=== PATIENT | male | born 1950 | race Caucasian/White ===

== ENCOUNTER 2018-01-02 06:10 | Emergency (ER) | payer OTHER ==
[~2018-01-02] VITALS: Ht 175.3 cm; Wt 79.4 kg
[2018-01-02] MEDS ORDERED: SODIUM CHLORIDE 0.9% 1,000 ML IV ONE (07:28)
[2018-01-02 07:39] LABS: Basophils # (auto) 0 uL; Basophils % (auto) 1.1 % (0.0-2.0); Eosinophils # (auto) 0.3 uL; Eosinophils % (auto) 7.5 % (0.0-7.0); Hematocrit 40.3 % (41.0-53.0); Lymphocytes # (auto) 1.2 uL; Lymphocytes % (auto) 33.3 % (10.0-50.0); Mean Corpuscular Hemoglobin 30.2 pg (28.0-32.0); Mean Corpuscular Hgb Conc. 34.7 g/dL (32.0-36.0); Monocytes # (auto) 0.4 uL; Monocytes % (auto) 12.4 % (0.0-12.0); Neutrophils # (auto) 1.6 uL; Neutrophils % (auto) 45.7 % (37.0-80.0); Nucleated Red Blood Cells % 0.1 %; Platelet Count (auto) 160 10^3/uL (140-450); Red Blood Cells 4.63 10^6/uL (4.5-5.90); Red Cell Distribution Width 14.7 % (11.8-14.3); White Blood Cell 3.5 10^3/uL (4.4-10.8)
[2018-01-02 08:00] LABS: Alanine Aminotransferase 31 U/L (16-61); Albumin 3.7 g/dL (3.4-5.0); Alkaline Phosphatase 107 U/L (45-117); Anion Gap 8 (5-15); Aspartate Aminotransferase 18 U/L (15-37); BUN/Creatinine Ratio 22.6; Blood Urea Nitrogen 28 mg/dL (7-18); Calcium 9.4 mg/dL (8.5-10.1); Carbon Dioxide 23 mmol/L (21-32); Chloride 107 mmol/L (98-107); GFR African American 74 mL/min; GFR Non-African American 61 mL/min; Glucose 200 mg/dL (74-106); Potassium 4.8 mmol/L (3.5-5.1); Sodium 138 mmol/L (136-145); Total Protein 7.8 g/dL (6.4-8.2)
[2018-01-02 08:48] LABS: Urine Bacteria NONE SEEN /hpf (None Seen); Urine Blood Negative /uL (Negative); Urine Specific Gravity 1.008 (1.001-1.035); Urine WBC 2 /hpf (0 - 3)
[2018-01-02 11:45] VITALS: BP 139/71
== END 2018-01-02 11:02 | disposition home or self-care (01) ==
LOC: ER 06:12
DX: R51 Headache (principal); R42 Dizziness and giddiness; E11.65 Type 2 diabetes mellitus with hyperglycemia; M19.90 Unspecified osteoarthritis, unspecified site; J01.00 Acute maxillary sinusitis, unspecified; H92.01 Otalgia, right ear; I10 Essential (primary) hypertension; Z85.72 Personal history of non-Hodgkin lymphomas
CPT/HCPCS: 36415; 70450; 71046; 80053; 81001; 83735; 83880; 84484; 85025; 85652; 93005; 94761; 96360; 99285; J7030

== ENCOUNTER 2019-12-11 19:04 | Emergency (ER) | payer OTHER ==
[~2019-12-11] VITALS: Ht 172.7 cm; Wt 74.8 kg
[2019-12-11 20:33] LABS: Hematocrit 40.7 % (41.0-53.0); Hemoglobin 13.9 g/dL (13.5-17.5); Mean Corpuscular Hemoglobin 29.4 pg (28.0-32.0); Mean Corpuscular Hgb Conc. 34.2 g/dL (32.0-36.0); Mean Corpuscular Volume 85.9 fL (80.0-100.0); Platelet Count (auto) 159 10^3/uL (140-450); Red Blood Cells 4.74 10^6/uL (4.5-5.90); Red Cell Distribution Width 19.1 % (11.8-14.3)
[2019-12-11 20:36] LABS: Band Neutrophils % (manual) 0; Basophils % (manual) 0 (0.0-2.0); Blast Cells 0; Eosinophils % (manual) 0 (0-7); Metamyelocytes % 0; Myelocytes % 0; Promyelocytes % 0; Reactive Lymphocytes 0
[2019-12-11 20:42] LABS: Albumin 3.9 g/dL (3.4-5.0); Anion Gap 6 (5-15); Blood Urea Nitrogen 22 mg/dL (7-18); Calcium 9.3 mg/dL (8.5-10.1); Carbon Dioxide 25 mmol/L (21-32); Chloride 106 mmol/L (98-107); Glucose 129 mg/dL (74-106); Potassium 3.5 mmol/L (3.5-5.1); Sodium 137 mmol/L (136-145)
[2019-12-11 20:44] LABS: Alanine Aminotransferase 44 U/L (16-61); Aspartate Aminotransferase 22 U/L (15-37); BUN/Creatinine Ratio 18.3; GFR African American 77 mL/min; GFR Non-African American 63 mL/min
[2019-12-11 20:49] LABS: Alkaline Phosphatase 81 U/L (45-117); Total Protein 8.2 g/dL (6.4-8.2)
[2019-12-11 20:58] LABS: Lymphocytes % (manual) 38 (10.0-50.0); Monocytes % (manual) 18 (0-12)
[2019-12-12 03:04] VITALS: BP 130/78
== END 2019-12-12 04:40 | disposition home or self-care (01) ==
LOC: ER 19:04
DX: E11.9 Type 2 diabetes mellitus without complications (principal); M19.90 Unspecified osteoarthritis, unspecified site
CPT/HCPCS: 36415; 80053; 82962; 84484; 85007; 85027

== ENCOUNTER 2021-11-13 16:24 | Inpatient (IN) | payer OTHER ==
[~2021-11-13] VITALS: Ht 172.7 cm; Wt 69.0 kg
[2021-11-13] MEDS ORDERED: ACETAMINOPHEN 325 MG TAB PO ONE (16:30)
[2021-11-13] MEDS ORDERED: SODIUM CHLORIDE 0.9% 500 ML IV ONE (16:30)
[2021-11-13 18:43] LABS: Hematocrit 34.8 % (41.0-53.0); Hemoglobin 11.8 g/dL (13.5-17.5); Mean Corpuscular Hemoglobin 27.4 pg (28.0-32.0); Mean Corpuscular Hgb Conc. 33.8 g/dL (32.0-36.0); Mean Corpuscular Volume 81.1 fL (80.0-100.0); Red Blood Cells 4.29 10^6/uL (4.5-5.90); Red Cell Distribution Width 17.1 % (11.8-14.3); White Blood Cell 2.7 10^3/uL (4.4-10.8)
[2021-11-13 18:46] LABS: Band Neutrophils % (manual) 0
[2021-11-13 18:48] LABS: Basophils % (manual) 0 (0.0-2.0); Blast Cells 0; Metamyelocytes % 0; Myelocytes % 0; Promyelocytes % 0; Reactive Lymphocytes 0
[2021-11-13 19:02] LABS: Albumin 2.9 g/dL (3.4-5.0); Calcium 9.5 mg/dL (8.5-10.1); Potassium 3.9 mmol/L (3.5-5.1)
[2021-11-13 19:06] LABS: Bilirubin, Total 0.8 mg/dL (0.2-1.0); Total Protein 7.8 g/dL (6.4-8.2)
[2021-11-13 19:11] LABS: Eosinophils % (manual) 2 (0-7); Lymphocytes % (manual) 22 (10.0-50.0); Monocytes % (manual) 8 (0-12)
[2021-11-14 05:18] LABS: Urine Bacteria FEW /hpf (None Seen); Urine Blood Negative /uL (Negative); Urine Specific Gravity 1.013 (1.001-1.035); Urine WBC <1 /hpf (0 - 3)
[2021-11-14] MEDS ORDERED: ACETAMINOPHEN 325 MG TAB PO PRN (19:15)
[2021-11-14] MEDS ORDERED: MORPHINE SULFATE INJECTION 2 MG/ML SYRG IV PRN (19:15)
[2021-11-14] MEDS ORDERED: MORPHINE SULFATE 4 MG/ML SYR/VIAL IV PRN (19:15)
[2021-11-14] MEDS ORDERED: NITROGLYCERIN 0.4 MG SL TAB SL PRN (19:15)
[2021-11-14] MEDS: SODIUM CHLORIDE 0.9% 1,000 ML IV SCH (20:22)
[2021-11-15] MEDS ORDERED: GLIM2TAB33 PO (04:20)
[2021-11-15] MEDS ORDERED: HYDR200T36 PO (04:20)
[2021-11-15 05:00] VITALS: BP 122/64
[2021-11-15 05:36] LABS: Hematocrit 32.5 % (41.0-53.0); Hemoglobin 10.9 g/dL (13.5-17.5); Mean Corpuscular Hemoglobin 27.1 pg (28.0-32.0); Mean Corpuscular Hgb Conc. 33.6 g/dL (32.0-36.0); Mean Corpuscular Volume 80.7 fL (80.0-100.0); Red Blood Cells 4.02 10^6/uL (4.5-5.90); Red Cell Distribution Width 17.3 % (11.8-14.3)
[2021-11-15 05:43] LABS: Albumin 2.5 g/dL (3.4-5.0); Calcium 10.1 mg/dL (8.5-10.1)
[2021-11-15 05:53] LABS: BUN/Creatinine Ratio 20.2; Bilirubin, Total 0.8 mg/dL (0.2-1.0); Total Protein 7.2 g/dL (6.4-8.2)
[2021-11-15 05:56] LABS: Basophils % (manual) 0 (0.0-2.0); Blast Cells 0; Metamyelocytes % 0; Myelocytes % 0; Promyelocytes % 0; Reactive Lymphocytes 0
[2021-11-15 06:42] LABS: Band Neutrophils % (manual) 6; Eosinophils % (manual) 5 (0-7); Lymphocytes % (manual) 34 (10.0-50.0); Monocytes % (manual) 19 (0-12)
[2021-11-15 09:00] VITALS: BP 130/60
[2021-11-15] MEDS: ENOXAPARIN SOD 40 MG/0.4 ML SYRINGE SC SCH (09:25)
[2021-11-15] MEDS: HYDROcodone-ACET 5/325MG TAB PO PRN ×2 (09:26→16:29)
[2021-11-15 12:27] VITALS: BP 115/54
[2021-11-15 17:01] VITALS: BP 131/69
[2021-11-15 20:00] VITALS: BP 125/62
[2021-11-15] MEDS: SODIUM CHLORIDE 0.9% 1,000 ML IV SCH (20:12)
[2021-11-16] MEDS: SODIUM CHLORIDE 0.9% 1,000 ML IV SCH (04:16)
[2021-11-16 05:00] VITALS: BP 132/74
[2021-11-16] MEDS ORDERED: IOHEXOL 350 MG/ML 100ML IJ ONE (09:21)
[2021-11-16 09:44] VITALS: BP 116/64
[2021-11-16] MEDS: ENOXAPARIN SOD 40 MG/0.4 ML SYRINGE SC SCH (10:25)
[2021-11-16 12:55] VITALS: BP 125/68
[2021-11-16 15:13] VITALS: BP 125/68
== END 2021-11-16 17:20 | disposition home or self-care (01) | DRG 558 ==
LOC: EDBD 16:24 → ER 16:24 → OBSVTOIN 11-14 19:06 → OVERFLOW 11-14 19:06 → WEST WING 11-14 23:40
PROVIDERS: ADMIT Internal Medicine; ATTEND Family Medicine
DX: M75.102 Unspecified rotator cuff tear or rupture of left shoulder, not specified as traumatic (principal); G89.29 Other chronic pain; R62.7 Adult failure to thrive; D64.9 Anemia, unspecified; D72.819 Decreased white blood cell count, unspecified; E88.09 Other disorders of plasma-protein metabolism, not elsewhere classified; E11.9 Type 2 diabetes mellitus without complications; E78.00 Pure hypercholesterolemia, unspecified; E78.5 Hyperlipidemia, unspecified; M06.9 Rheumatoid arthritis, unspecified; M19.90 Unspecified osteoarthritis, unspecified site; M25.561 Pain in right knee; M25.562 Pain in left knee; W18.39XA Other fall on same level, initial encounter; R79.89 Other specified abnormal findings of blood chemistry; Z20.822 Contact with and (suspected) exposure to COVID-19; Z82.49 Family history of ischemic heart disease and other diseases of the circulatory system; Z83.3 Family history of diabetes mellitus; Z85.6 Personal history of leukemia; Y93.89 Activity, other specified; Y92.89 Other specified places as the place of occurrence of the external cause; Y99.8 Other external cause status
CPT/HCPCS: 36415; 70450; 71275; 73030; 73560; 80053; 81001; 82962; 83605; 84484; 85007; 85027; 85379; 87040; 87426; 93005; 93970; 97163; G0378

== ENCOUNTER 2023-10-13 01:01 | Emergency (ER) | payer OTHER ==
[~2023-10-13] VITALS: Ht 175.3 cm; Wt 73.0 kg
[~2023-10-13 01:01] MED LIST: GLIM2TAB33 PO; HYDR200T36 PO
[2023-10-13 01:41] LABS: Basophils # (auto) 0 10 ^3/uL (0-0.2); Basophils % (auto) 0.7 % (0.0-2.0); Eosinophils # (auto) 0.1 10 ^3/uL (0-0.8); Eosinophils % (auto) 2.2 % (0.0-7.0); Hematocrit 41.7 % (41.0-53.0); Mean Corpuscular Hemoglobin 30.6 pg (28.0-32.0); Mean Corpuscular Hgb Conc. 33.6 g/dL (32.0-36.0); Mean Corpuscular Volume 91.3 fL (80.0-100.0); Monocytes # (auto) 0.4 10 ^3/uL (0-1.3); Neutrophils # (auto) 2.3 10 ^3/uL (1.6-8.6); Neutrophils % (auto) 60.1 % (37.0-80.0); Red Blood Cells 4.56 10^6/uL (4.5-5.90); White Blood Cell 3.9 10^3/uL (4.4-10.8)
[2023-10-13 01:48] VITALS: PULSE 58; RESP 14; O2SAT 94
[2023-10-13 02:00] LABS: Alanine Aminotransferase 34 U/L (7-40); Albumin 4.4 g/dL (3.2-4.8); Alkaline Phosphatase 91 U/L (46-116); Anion Gap 10 (5-15); Aspartate Aminotransferase 42 U/L (13-40); BUN/Creatinine Ratio 11.5 (10.0-20.0); Bilirubin, Total 1.6 mg/dL (0.2-1.0); Blood Alcohol < 3.0 mg/dL (<10); Blood Urea Nitrogen 14 mg/dL (9-23); Calcium 9.6 mg/dL (8.7-10.4); Carbon Dioxide 21 mmol/L (20-30); Chloride 103 mmol/L (98-107); Glucose 165 mg/dL (74-106); Sodium 134 mmol/L (136-145); Total Protein 7.2 g/dL (5.7-8.2)
[2023-10-13] MEDS ORDERED: LACTATED RINGER'S 1,000 ML IV ONE (02:45)
[2023-10-13 04:45] LABS: Urine Bacteria NONE SEEN /hpf (None Seen); Urine Blood Negative /uL (Negative); Urine Clarity Clear (Clear); Urine Color Colorless (Yellow); Urine Protein, UAD Negative (Negative); Urine Specific Gravity 1.003 (1.001-1.035); Urine Urobilinogen Normal (Negative); Urine WBC <1 /hpf (0 - 3); Urine pH 5.5 (5.0-8.0)
[2023-10-13 04:55] LABS: Amphetamine Screen, Urine Neg (NEGATIVE); Barbiturate Scree,Urine Neg (NEGATIVE); Benzodiazephine Screen, Urine Neg (NEGATIVE); Cocaine Screen, Urine Neg (NEGATIVE)
[2023-10-13 04:56] LABS: Cannabinoid Screen, Urine Neg (NEGATIVE); Opiate Scree,Urine Neg (NEGATIVE); Phencyclidine Screen, Urine Neg (NEGATIVE)
[2023-10-13 05:59] VITALS: BP 121/54; PULSE 56; RESP 11; TEMP 98; O2SAT 96
== END 2023-10-13 05:57 | disposition home or self-care (01) ==
LOC: ER 01:01
DX: D72.819 Decreased white blood cell count, unspecified (principal); E87.1 Hypo-osmolality and hyponatremia; D69.6 Thrombocytopenia, unspecified; R51.9 Headache, unspecified; E11.9 Type 2 diabetes mellitus without complications; I10 Essential (primary) hypertension; Z79.899 Other long term (current) drug therapy
CPT/HCPCS: 36415; 70450; 71045; 80053; 80307; 80320; 81001; 82962; 84484; 85025; 93005

== ENCOUNTER 2024-09-25 19:13 | Inpatient (IN) | payer OTHER ==
[~2024-09-25] VITALS: Ht 175.3 cm; Wt 72.2 kg
[2024-09-25 20:40] LABS: Urine Bacteria FEW /hpf (None Seen); Urine Blood Negative /uL (Negative); Urine Clarity Clear (Clear); Urine Color Light-Yellow (Yellow); Urine Protein, UAD Negative (Negative); Urine Specific Gravity 1.011 (1.001-1.035); Urine Urobilinogen Normal (Negative); Urine WBC <1 /hpf (0 - 3)
--- NOTE | 2024-09-25 20:52 | ED.PDOC ---
Altered Mental Status HPI Comments This 74-year-old male with a past medical history significant for rheumatoid arthritis, leukemia diabetes mellitus presents to the emergency room secondary to multiple recent episodes where he transiently is confused. This morning, he woke up, was unsure where he was at, but over the course of the improved. This happened again this afternoon while he was driving. He then was unable to recognize where he was at was unable to remember basic information. Once his mental status improved, he presented here. Currently, he has no complaints such as headaches and vision changes chest pain, shortness breath, nausea vomiting or diarrhea. Denies weakness. Denies modifying factors. Denies pain. Chief Complaint: Confusion Time Seen by MD: 20:11 Primary Care Provider: UNKNOWN Allergies: Coded Allergies: NO KNOWN ALLERGIES (Unverified , 11/13/21) Home Meds Reported Medications Hydroxychloroquine Sulfate (Hydroxychloroquine Sulfat) 200 Mg Tab, 200 MG PO DAILY for 30 Days, MG 11/15/21 Glimepiride (Glimepiride) 2 Mg Tab, 2 MG PO BID for 30 Days, MG 11/15/21 Mode of Arrival: Ambulatory Severity: Mild Timing: Minutes Past Medical History PAST MEDICAL HISTORY: Arthritis, Cancer, DM, HTN Surgical History: Tonsillectomy Family History Family History: Unknown Social History Smoker: Non-Smoker Alcohol: Denies ETOH Use Drugs: Denies Drug Use Lives In: Home Constitutional: denies: chills, diaphoresis, fatigue, fever, malaise, sweats, weakness, others EENTM: denies: blurred vision, double vision, ear ringing, photophobia, voice changes Respiratory: denies: cough, shortness of breath Cardiovascular: denies: dizzy spells, edema, palpitations Gastrointestinal: reports: diarrhea; denies: abdominal pain, constipated, difficulty swallowing, melena, nausea Genitourinary: denies: burning, dysuria, frequency Neurological: reports: speech problems, others (Transient confusion); denies: headache, left sided numbness, left sided weakness, numbness Musculoskeletal: denies: back pain Integumetry: denies: bruises Allergic/Immunocompromised: denies: Difficulty Healing Hematologic/Lymphatic: denies: anemia Endocrine: denies: excessive hunger Psychiatric: denies: anxiety, depression Unable to Obtain due to: Altered Mental Status, Dementia Physical Exam General Appearance: Normal HEENT: Eye Lid (L), Eye Lid (R), Head, Normal ENT Inspection, Pharynx Normal Neck: Full Range of Motion, Non-Tender, Normal Inspection Respiratory: Lungs Clear, Normal Breath Sounds Cardiovascular: No Murmur, No Gallop, Regular Rate/Rhythm Breast Exam: Deferred Gastrointestinal: Non Tender, Normal Bowel Sounds Genitalia: Deferred Pelvic: Deferred Rectal: Deferred Extremities: None, Normal inspection, Normal range of motion Neurologic: paraplanner II-XII nml as Tested, No Motor Deficits, Normal Affect, Normal Mood Cerebellar Function: Normal Reflexes: NOT DONE Skin: Normal Color Lymphatic: NOT DONE Was a procedure done? Was a procedure done?: No Differential Diagnosis (ALOC) Differential Diagnosis: Dehydration, Hypoglycemia, DKA, Encephalopathy, Meningitis, Sepsis, Hypoxemia, Closed Head Injury, CVA, SAH, Drug Overdose, ETOH Intoxication X-Ray, Labs, Meds, VS Vital Signs Date Time Temp Pulse Resp B/P (MAP) Pulse Ox O2 Delivery O2 Flow Rate FiO2 09/25/24 19:48 98.1 66 18 169/67 (101) 97 Lab Test 09/25/24 20:49 09/25/24 19:50 Range/Units White Blood Count 2.9 L 4.4-10.8 10^3/uL Red Blood Count 4.52 4.5-5.90 10^6/uL Hemoglobin 13.9 13.5-17.5 g/dL Hematocrit 41.0 41.0-53.0 % Mean Corpuscular Volume 90.6 80.0-100.0 fL Mean Corpuscular Hemoglobin 30.8 28.0-32.0 pg Mean Corpuscular Hemoglobin Concent 33.9 32.0-36.0 g/dL Red Cell Distribution Width 14.7 H 11.8-14.3 % Platelet Count 155 140-450 10^3/uL Mean Platelet Volume 8.3 6.9-10.8 fL Neutrophils (%) (Auto) 44.4 37.0-80.0 % Lymphocytes (%) (Auto) 31.9 10.0-50.0 % Monocytes (%) (Auto) 16.6 H 0.0-12.0 % Eosinophils (%) (Auto) 6.4 0.0-7.0 % Basophils (%) (Auto) 0.7 0.0-2.0 % Neutrophils # (Auto) 1.3 L 1.6-8.6 10 ^3/uL Lymphocytes # (Auto) 0.9 0.4-5.4 10 ^3/uL Monocytes # (Auto) 0.5 0-1.3 10 ^3/uL Eosinophils # (Auto) 0.2 0-0.8 10 ^3/uL Basophils # (Auto) 0 0-0.2 10 ^3/uL Nucleated Red Blood Cells 0.4 % Prothrombin Time 10.7 9.3-11.8 sec Prothrombin Time INR 1.01 0.9-1.15 Activated Partial Thromboplast Time 25.6 24.5-34.5 SEC D-Dimer, Quantitative 0.33 0.0-0.49 mg/L FEU Sodium Level 141 136-145 mmol/L Potassium Level 4.5 3.5-5.1 mmol/L Chloride Level 108 H 98-107 mmol/L Carbon Dioxide Level 26 20-31 mmol/L Anion Gap 7 5-15 Blood Urea Nitrogen 22 9-23 mg/dL Creatinine 1.54 H 0.700-1.30 mg/dL Glomerular Filtration Rate Calc 46 >90 mL/min BUN/Creatinine Ratio 14.3 10.0-20.0 Serum Glucose 109 H 74-106 mg/dL Lactic Acid Level 0.8 0.4-2.0 mmol/L Calcium Level 10.5 H 8.7-10.4 mg/dL Magnesium Level 2.2 1.6-2.6 mg/dL Total Bilirubin 1.4 H 0.2-1.0 mg/dL Aspartate Amino Transferase (AST) 36 13-40 U/L Alanine Aminotransferase (ALT) 37 7-40 U/L Alkaline Phosphatase 108 46-116 U/L Total Protein 7.4 5.7-8.2 g/dL Albumin 4.5 3.2-4.8 g/dL Plasma/Serum Blood Alcohol < 3.0 <10 mg/dL Urine Color Light-yellow Yellow Urine Clarity Clear Clear Urine pH 5.0 5.0-9.0 Urine Specific [place] 1.011 1.001-1.035 Urine Protein Negative Negative Urine Ketones Negative Negative Urine Blood Negative Negative /uL Urine Nitrite Negative Negative Urine Bilirubin Negative Negative Urine Urobilinogen Normal Negative mg/dL Urine Leukocyte Esterase Negative Negative /uL Urine RBC None seen 0 - 3 /hpf Urine WBC <1 0 - 3 /hpf Urine Squamous Epithelial Cells Few <5 /hpf Urine Bacteria Few H None Seen /hpf Urine Glucose Normal Normal mg/dL Urine Opiates Screen Neg NEGATIVE Urine Fentanyl Screen Neg NEGATIVE Urine Barbiturates Screen Neg NEGATIVE Urine Phencyclidine Screen Neg NEGATIVE Urine Amphetamines Screen Neg NEGATIVE Urine Benzodiazepines Screen Neg NEGATIVE Urine Cocaine Screen Neg NEGATIVE Urine Cannabinoids Screen Neg NEGATIVE X-Ray, Labs, Meds, VS Comment This 74-year-old male with a complex past medical history with multiple cardiac risk factors present signal multiple spells where he is confused. Based on such physical exam, I believe the patient is having transient ischemic attacks. These have resolved. However, he has had 2 episodes today and I am worried he is pending a catastrophic stroke. As such, he will be admitted for further workup management. Time of 1ST Reevaluation: 22:20 Reevaluation 1ST: Improved Patient Education/Counseling: Diagnosis, Treatment, Prognosis, Need For Follow Up Family Education/Counseling: No Family Present Departure 1 Departure Time of Disposition: 22:19 Impression: Primary Impression: Acute confusional state Disposition: 09 ADMITTED INPATIENT Admit to: Tele Condition: Serious Critical Care Note Critical Care Time?: No Stability Stability form required: No Heart Score Heart Score: Heart Score Response (Comments) Value History N/A 0 EKG N/A 0 Age N/A 0 Risk Factors N/A 0 Troponin N/A 0 Total 0 SEAMUS MONSALVE MD Sep 25, 2024 20:52
[2024-09-25 21:05] LABS: Basophils # (auto) 0 10 ^3/uL (0-0.2); Basophils % (auto) 0.7 % (0.0-2.0); Eosinophils # (auto) 0.2 10 ^3/uL (0-0.8); Eosinophils % (auto) 6.4 % (0.0-7.0); Hemoglobin 13.9 g/dL (13.5-17.5); Lymphocytes # (auto) 0.9 10 ^3/uL (0.4-5.4); Lymphocytes % (auto) 31.9 % (10.0-50.0); Mean Corpuscular Hemoglobin 30.8 pg (28.0-32.0); Mean Corpuscular Hgb Conc. 33.9 g/dL (32.0-36.0); Mean Corpuscular Volume 90.6 fL (80.0-100.0); Monocytes # (auto) 0.5 10 ^3/uL (0-1.3); Monocytes % (auto) 16.6 % (0.0-12.0); Neutrophils # (auto) 1.3 10 ^3/uL (1.6-8.6); Neutrophils % (auto) 44.4 % (37.0-80.0); Nucleated Red Blood Cells % 0.4 %; Platelet Count (auto) 155 10^3/uL (140-450); Red Blood Cells 4.52 10^6/uL (4.5-5.90); Red Cell Distribution Width 14.7 % (11.8-14.3); White Blood Cell 2.9 10^3/uL (4.4-10.8)
[2024-09-25 21:05] LABS: Amphetamine Screen, Urine Neg (NEGATIVE); Barbiturate Scree,Urine Neg (NEGATIVE); Benzodiazephine Screen, Urine Neg (NEGATIVE); Cannabinoid Screen, Urine Neg (NEGATIVE); Cocaine Screen, Urine Neg (NEGATIVE); Opiate Scree,Urine Neg (NEGATIVE); Phencyclidine Screen, Urine Neg (NEGATIVE)
--- NOTE | 2024-09-25 21:09 | DVH ---
EXAM: CT HEAD WITHOUT CONTRAST INDICATION: confusion TECHNIQUE: CT of the head without intravenous contrast. Radiation Dose : 1. Head: CT Dose: CTDI volume is 57 mGy. Dose-length product is 1113 mGy*cm The dose indicators for CT are the volume Computed Tomography (CT) Dose Index (CTDIvol) and the Dose Length Product (DLP), and are measured in units of mGy and mGy-cm, respectively. These indicators are not patient dose, but values generated from the CT scanner acquisition factors. The report includes radiation exposure data for exposures received during this examination. COMPARISON: CT HEAD WITHOUT CONTRAST on DOS: 10/13/23, CT ANGIO CHEST CONTRAST on DOS: 11/16/21, HEAD WITHOUT CONTRAST on DOS: 11/13/21 FINDINGS: There is no evidence of acute intracranial hemorrhage, extra-axial collection, mass effect, midline s hift, herniation or hydrocephalus. The ventricles, sulci and cisterns are age appropriate. The nina-white differentiation is intact. Patchy periventricular and subcortical white matter hypoattenuation is nonspecific but may be related to small vessel ischemic disease. Complete opacification of the right maxillary sinus, unchanged from prior. The surrounding soft tissues and osseous structures are unremarkable. IMPRESSION: 1. No acute intracranial abnormality. Radiation optimization: All CT scans at this facility use at least one of these dose optimization bimal hniques: automated exposure control mA and/or kV adjustment per patient size (includes targeted exam s where dose is matched to clinical indication) or iterative reconstruction.
[2024-09-25 21:20] LABS: INR 1.01 (0.9-1.15); Partial Thromboplastin Time 25.6 SEC (24.5-34.5); Prothrombin Time 10.7 sec (9.3-11.8)
[2024-09-25 21:23] LABS: Alanine Aminotransferase 37 U/L (7-40); Albumin 4.5 g/dL (3.2-4.8); Alkaline Phosphatase 108 U/L (46-116); Anion Gap 7 (5-15); Aspartate Aminotransferase 36 U/L (13-40); BUN/Creatinine Ratio 14.3 (10.0-20.0); Blood Urea Nitrogen 22 mg/dL (9-23); Carbon Dioxide 26 mmol/L (20-31); Magnesium 2.2 mg/dL (1.6-2.6); Potassium 4.5 mmol/L (3.5-5.1); Sodium 141 mmol/L (136-145)
[2024-09-25 21:24] LABS: Total Protein 7.4 g/dL (5.7-8.2)
[2024-09-25 21:25] LABS: Bilirubin, Total 1.4 mg/dL (0.2-1.0); Blood Alcohol < 3.0 mg/dL (<10); Calcium 10.5 mg/dL (8.7-10.4); Chloride 108 mmol/L (98-107); Glucose 109 mg/dL (74-106)
[2024-09-25] MEDS ORDERED: ACETAMINOPHEN 325 MG TAB PO PRN (22:45)
[2024-09-25] MEDS: SODIUM CHLORIDE 0.9% 1,000 ML IV SCH (22:45)
[2024-09-25] MEDS ORDERED: NITROGLYCERIN 0.4 MG SL TAB SL PRN (22:45)
[2024-09-25] MEDS ORDERED: MORPHINE SULFATE INJ 2 MG/ml SYRG IV PRN ×2 (22:45)
[2024-09-25] MEDS ORDERED: ONDANSETRON HCL 4 MG/2 ML VIAL IV PRN (22:45)
[2024-09-26] VITALS (8 sets, daily range): BP systolic 93–162; BP diastolic 53–71; PULSE 52–65; RESP 16–20; TEMP 97.4–97.9; O2SAT 92–99
--- NOTE | 2024-09-26 04:00 | DVHHPRES ---
History of Present Illness Resident Creating Document: FARA COCHRAN RESIDENT Reason for Visit: recurrent memory loss History of Present Illness 74-year-old male patient with past medical history of rheumatoid arthritis, leukemia, type 2 diabetes, hypertension who presents with a recent episode of transient memory loss. He describes the episode as an inability to remember his location, mainly how to return home. During the episode he routine his ability to recall personal information, such as his name family members. The episode lasted approximately 1 hour and resolved spontaneously, with a returned to baseline mental status. These symptoms began in November of this year, after which he was evaluated in the emergency department and diagnosed with transient amnesia. He denies current chest pain, shortness of breath, weakness, dizziness, focal neurological deficits, or other complaints. He reports no rece nt infections, trauma or new medications. On presentation his blood pressure was elevated with readings of 169/67 mmHg and 156/55 mmHg. His initial head CT was unremarkable, showing no acute intracranial abnormalities. Laboratory findings revealed leukopenia white blood cell count 2.9, and platelet count 155, creatinine 154 consistent with acute kidney injury. Urinalysis was normal except for a few bacteria and toxicology screening was negative. Past Surgical History: None Smoke: No ALCOHOL: none Lives: with Family Domestic Violence: Neg Review of Systems Review of Systems Constitutional: No: Fever, Chills, Sweats, Weakness, Malaise, but reports transient memory loss lasting 1 hour, fully resolved. Eyes: No: Pain, Vision change, Conjunctivae inflammation, Eyelid inflammation, Other, Redness ENT: No: Ear pain, Ear discharge, Nose pain, Nose discharge, Nose congestion, Mouth pain, Mouth swelling, Throat pain, Throat swelling, Other Respiratory: No Wheezing, Hemoptysis, Pleuritic Pain, Sputum, Wheezing, Other Cardiovascular: No: Chest Pain, Palpitations, Orthopnea, Paroxysmal Noc. Dyspnea, Edema, Lt Headedness, Other Gastrointestinal: No: Nausea, Vomiting, Abdominal Pain, Diarrhea, Constipation, Melena, Hematochezia, Other Musculoskeletal: No new joint pain or swelling. Chronic rheumatoid arthritis noted but stable without recent flare. Neurological: Reports transient memory loss related to location (forgetting how to return home), lasting 1 hour. Denies weakness numbness tingling focal deficits, or difficulty with speech. Allergies: Coded Allergies: NO KNOWN ALLERGIES (Unverified , 11/13/21) Medications Current Medications Medications Dose Ordered Sig/Justino Route Start Time Stop Time Status Last Admin Dose Admin Sodium Chloride 1,000 ml @ 60 mls/hr [id number] IV 09/25/24 22:45 09/25/24 22:45 60 MLS/HR Ondansetron HCl 4 mg Q4HP PRN IV 09/25/24 22:45 Acetaminophen 650 mg Q6HP PRN PO 09/25/24 22:45 Morphine Sulfate 2 mg Q4HPRN PRN IV 09/25/24 22:45 Nitroglycerin 0.4 mg Q5MINP PRN SL 09/25/24 22:45 Morphine Sulfate 2 mg Q30M PRN IV 09/25/24 22:45 Exam Vital Signs Vital Signs Date Time Temp Pulse Resp B/P (MAP) Pulse Ox O2 Delivery O2 Flow Rate FiO2 09/26/24 00:50 97.6 60 20 156/55 (88) 96 97.6 Exam Examination General Appearance: Alert, oriented to person, place, and time appears calm and cooperative Respiratory: Clear to auscultation, Normal air movement Cardiovascular: Regular rate, Normal S1, Normal S2 Abdominal: Normal bowel sounds Extremities: No cyanosis, No edema, Normal pulses, No tenderness/swelling Skin: No rashes, No breakdown Neuro: Normal gait, Normal speech, Strength at 5/5 X4 ext, Normal tone, Sensation intact, Cranial nerves 3-12 NL, Reflexes 2+ Psych/Mental Status: Mental status NL, Mood NL Labs/Xrays Labs Test 09/25/24 20:49 09/25/24 19:50 Range/Units White Blood Count 2.9 L 4.4-10.8 10^3/uL Red Blood Count 4.52 4.5-5.90 10^6/uL Hemoglobin 13.9 13.5-17.5 g/dL Hematocrit 41.0 41.0-53.0 % Mean Corpuscular Volume 90.6 80.0-100.0 fL Mean Corpuscular Hemoglobin 30.8 28.0-32.0 pg Mean Corpuscular Hemoglobin Concent 33.9 32.0-36.0 g/dL Red Cell Distribution Width 14.7 H 11.8-14.3 % Platelet Count 155 140-450 10^3/uL Mean Platelet Volume 8.3 6.9-10.8 fL Neutrophils (%) (Auto) 44.4 37.0-80.0 % Lymphocytes (%) (Auto) 31.9 10.0-50.0 % Monocytes (%) (Auto) 16.6 H 0.0-12.0 % Eosinophils (%) (Auto) 6.4 0.0-7.0 % Basophils (%) (Auto) 0.7 0.0-2.0 % Neutrophils # (Auto) 1.3 L 1.6-8.6 10 ^3/uL Lymphocytes # (Auto) 0.9 0.4-5.4 10 ^3/uL Monocytes # (Auto) 0.5 0-1.3 10 ^3/uL Eosinophils # (Auto) 0.2 0-0.8 10 ^3/uL Basophils # (Auto) 0 0-0.2 10 ^3/uL Nucleated Red Blood Cells 0.4 % Prothrombin Time 10.7 9.3-11.8 sec Prothrombin Time INR 1.01 0.9-1.15 Activated Partial Thromboplast Time 25.6 24.5-34.5 SEC D-Dimer, Quantitative 0.33 0.0-0.49 mg/L FEU Sodium Level 141 136-145 mmol/L Potassium Level 4.5 3.5-5.1 mmol/L Chloride Level 108 H 98-107 mmol/L Carbon Dioxide Level 26 20-31 mmol/L Anion Gap 7 5-15 Blood Urea Nitrogen 22 9-23 mg/dL Creatinine 1.54 H 0.700-1.30 mg/dL Glomerular Filtration Rate Calc 46 >90 mL/min BUN/Creatinine Ratio 14.3 10.0-20.0 Serum Glucose 109 H 74-106 mg/dL Lactic Acid Level 0.8 0.4-2.0 mmol/L Calcium Level 10.5 H 8.7-10.4 mg/dL Magnesium Level 2.2 1.6-2.6 mg/dL Total Bilirubin 1.4 H 0.2-1.0 mg/dL Aspartate Amino Transferase (AST) 36 13-40 U/L Alanine Aminotransferase (ALT) 37 7-40 U/L Alkaline Phosphatase 108 46-116 U/L Total Protein 7.4 5.7-8.2 g/dL Albumin 4.5 3.2-4.8 g/dL Plasma/Serum Blood Alcohol < 3.0 <10 mg/dL Urine Color Light-yellow Yellow Urine Clarity Clear Clear Urine pH 5.0 5.0-9.0 Urine Specific [place] 1.011 1.001-1.035 Urine Protein Negative Negative Urine Ketones Negative Negative Urine Blood Negative Negative /uL Urine Nitrite Negative Negative Urine Bilirubin Negative Negative Urine Urobilinogen Normal Negative mg/dL Urine Leukocyte Esterase Negative Negative /uL Urine RBC None seen 0 - 3 /hpf Urine WBC <1 0 - 3 /hpf Urine Squamous Epithelial Cells Few <5 /hpf Urine Bacteria Few H None Seen /hpf Urine Glucose Normal Normal mg/dL Urine Opiates Screen Neg NEGATIVE Urine Fentanyl Screen Neg NEGATIVE Urine Barbiturates Screen Neg NEGATIVE Urine Phencyclidine Screen Neg NEGATIVE Urine Amphetamines Screen Neg NEGATIVE Urine Benzodiazepines Screen Neg NEGATIVE Urine Cocaine Screen Neg NEGATIVE Urine Cannabinoids Screen Neg NEGATIVE Assessment/Plan Assessment/Plan Transient memory loss likely transient global amnesia versus transient ischemic attack -neurology consult -carotid Doppler ultrasound to evaluate carotid artery stenosis -aspirin 81 mg daily for prevention if TIA -Atorvastatin 40 mg daily -Folate -Vitamin B12 -MRI head without contrast Hypertension, uncontrolled Monitor blood pressure Low-sodium diet History of leukemia with leukopenia -monitor white blood cell count and assess for infections. -consider hematology consult Type 2 diabetes Hemoglobin A1c Acute kidney injury on chronic kidney disease likely multifactorial?, hypertensive nephropathy -normal saline 0.9% IV Rheumatoid arthritis, stable -monitor Case discussed with Dr. Simms Goals of care discussed with the patient for 34 minutes Code status: Full code Plan discussed with: Patient My Orders Orders - FARA COCHRAN RESIDENT Procedure Category Date Status Time Admit ADMIT 09/25/24 Transmitted 22:33 Allergies COLE 09/25/24 In Process 22:33 Code Status CODE 09/25/24 Transmitted 22:33 Sodium Chloride 0.9% PHA 09/25/24 In Process 22:45 Ondansetron Hcl PHA 09/25/24 In Process (Zofran) 22:45 Fall Risk Precautions COLE 09/25/[address] 22:33 Complete Blood Count LAB 09/26/24 Logged 04:00 Comprehensive LAB 09/26/24 Logged Metabolic Panel 04:00 Acetaminophen Tablet PHA 09/25/24 In Process (Tylenol Tablet) 22:45 Clear Liq Diet DIET 09/26/24 Transmitted Breakfast Morphine Sulfate PHA 09/25/24 In Process Injection 22:45 Nitroglycerin PHA 09/25/24 In Process Sublingual (Ntrostat 22:45 Morphine Sulfate PHA 09/25/24 In Process Injection 22:45 Oxygen By Nasal RT 09/25/24 Transmitted Cannula 22:33 Stat Ekg For Chest [facility] 09/25/24 In Process Pain 22:33 Notify Md Of Changes [facility] 09/25/24 In Process From Base 22:33 Embossing Clerk For [facility] 09/25/24 In Process 24 Hours 22:33 Emergency Dysrhythmia [facility] 09/25/24 In Process Protocol 22:33 Rhythm Strips Once [facility] 09/25/24 In Process Every Shift 22:33 Date of Service: Sep 25, 2024 Billing Provider: KIMI SIMMS MD Common Visit Codes: 57055-[id number] INP/OBS CARE (HIGH) Secondary Visit Codes: [id number] CARE PLAN 30 MINUTES FARA COCHRAN RESIDENT Sep 26, 2024 04:00 KIMI SIMMS MD Sep 26, 2024 19:34
[2024-09-26] MEDS ORDERED: LACTATED RINGER'S 2,100 ML IV ONE (06:00)
[2024-09-26] MEDS ORDERED: LACTATED RINGER'S 1,000 ML IV SCH (06:00)
[2024-09-26] MEDS ORDERED: UPAD15TA PO (06:04)
[2024-09-26] MEDS: LACTATED RINGER'S 500 ML IV ONE (07:13)
[2024-09-26] MEDS ORDERED: LACTATED RINGER'S 500 ML IV ONE (07:15)
[2024-09-26 08:35] LABS: Basophils # (auto) 0 10 ^3/uL (0-0.2); Basophils % (auto) 1.2 % (0.0-2.0); Eosinophils # (auto) 0.2 10 ^3/uL (0-0.8); Hematocrit 39.6 % (41.0-53.0); Hemoglobin 13.3 g/dL (13.5-17.5); Lymphocytes # (auto) 1.2 10 ^3/uL (0.4-5.4); Lymphocytes % (auto) 37.1 % (10.0-50.0); Mean Corpuscular Hemoglobin 30.7 pg (28.0-32.0); Mean Corpuscular Hgb Conc. 33.6 g/dL (32.0-36.0); Mean Corpuscular Volume 91.3 fL (80.0-100.0); Monocytes # (auto) 0.4 10 ^3/uL (0-1.3); Monocytes % (auto) 13.5 % (0.0-12.0); Neutrophils # (auto) 1.4 10 ^3/uL (1.6-8.6); Neutrophils % (auto) 43.2 % (37.0-80.0); Nucleated Red Blood Cells % 0.5 %; Platelet Count (auto) 136 10^3/uL (140-450); Red Blood Cells 4.34 10^6/uL (4.5-5.90); Red Cell Distribution Width 14.7 % (11.8-14.3); White Blood Cell 3.2 10^3/uL (4.4-10.8)
[2024-09-26 08:48] LABS: Alanine Aminotransferase 32 U/L (7-40); Albumin 4.2 g/dL (3.2-4.8); Alkaline Phosphatase 99 U/L (46-116); Anion Gap 4 (5-15); Aspartate Aminotransferase 31 U/L (13-40); BUN/Creatinine Ratio 20.3 (10.0-20.0); Carbon Dioxide 28 mmol/L (20-31); Potassium 4.4 mmol/L (3.5-5.1); Sodium 142 mmol/L (136-145)
[2024-09-26 08:57] LABS: Bilirubin, Total 1.2 mg/dL (0.2-1.0); Blood Urea Nitrogen 27 mg/dL (9-23); Calcium 10.5 mg/dL (8.7-10.4); Chloride 110 mmol/L (98-107); Creatine Kinase IFCC 196 U/L (46-171); Glucose 107 mg/dL (74-106)
--- NOTE | 2024-09-26 09:14 | DVH ---
EXAMINATION: MRI BRAIN HEAD WO CONTRAST INDICATION: memory loss COMPARISON: CT HEAD WITHOUT CONTRAST on DOS: 09/25/24, CT HEAD WITHOUT CONTRAST on DOS: 10/13/23 TECHNIQUE: Multiplanar, multisequence magnetic resonance imaging of the brain was performed without the use of i ntravenous contrast. FINDINGS: There is no restricted diffusion. There are minimal chronic microvascular periventricular white matte r ischemic changes. There is no evidence of hemorrhage, mass, mass effect or midline shift. There is no hydrocephalus or extra-axial fluid collection. The visualized intracranial vasculature demonstrate s appropriate flow-voids. The sagittal midline structures appear unremarkable. The craniocervical joseph ction is within normal limits. The calvarium demonstrates normal marrow signal. A hypoplastic right m axillary sinus is filled with inspissated secretions and surrounding mucosal thickening. Remaining pa ranasal sinuses and mastoid air cells are clear. IMPRESSION: 1. There is no acute intracranial process. 2. Chronic right maxillary sinus disease. HS:Y
[2024-09-26 09:20] LABS: Folate (Folic Acid) 12.95 ng/mL (>5.38)
[2024-09-26] MEDS: RINVOQ 15 MG PO SCH (10:00)
--- NOTE | 2024-09-26 10:44 | DVH ---
CAROTID ARTERIAL DOPPLER CLINICAL HISTORY: tia TECHNIQUE: Doppler study of bilateral carotid/vertebral arteries were performed. Comparison: None FINDINGS: There are mild nonocclusive atheromatous plaques in the bilateral carotid bulbs. The bilateral common carotid, external and internal carotid arteries appear patent without hemodynamically significant st enosis. The spectral wave forms and peak systolic velocities are within normal limits. Antegrade flow is present within the vertebral arteries with appropriate velocities and waveforms. Right ICA/CCA PSV ratio = 1.0. Left ICA/CCA PSV ratio = 1.1 . IMPRESSION: 1. No hemodynamically significant stenosis within the carotid arteries. HS:Y
--- NOTE | 2024-09-26 13:33 | DVH ---
CHEST RADIOGRAPH Indication: suspected pneumonia Technique: Single frontal view of the chest was obtained Comparison: XY CHEST PORTABLE on DOS: 10/13/23 FINDINGS: Lines and Tubes: None Lungs: No focal consolidation. Pleura: No effusion.No pneumothorax. Cardiomediastinal contours: Unremarkable Pulmonary vasculature: Within normal limits. Bones: No acute osseous abnormality. IMPRESSION: 1. No acute cardiopulmonary disease. HS:Y
--- NOTE | 2024-09-26 15:26 | DVHPNRES ---
Progress Note Date Seen: Sep 26, 2024 Resident Creating Document: MANUELA CHAMPIONFLYYASMIN RESIDENT Medical Necessity Reason Pt with a Central, PICC or Fol: No Subjective Review of Systems Patient is a 74-year-old male with a past medical history as described below came to the ED with a chief complaint of worsening memory and functional impairment. That he had 2 episodes of COVID-10 July 2023 and another in October 2023 following which he started having episodes where he could not find words to speak and while driving he felt he was lost and did not know where he was and could not figure out how to return home. However he reports that after about 20-30 minutes he is able to figure out and uses the help of the GPS to come back home. Patient reports the episodes of cognitive impairment have been going on since October this year intermittently. Patient denies sensory or motor weakness. No speech disturbance. No visual or hearing impairment. Denies dizziness, loss of consciousness. Past medical history: Type 2 diabetes mellitus, leukemia diagnosed in 2014, rheumatoid arthritis Past surgical history: None Social history: Denies smoking, alcohol, drug use. Reports living in his own separate area in the house will resolve son also lives Home meds: Rinvoq 15 mg p.o. daily, hydroxychloroquine 200 mg p.o. daily for rheumatoid arthritis, glimepiride 2 mg p.o. b.i.d. Review of systems Patient was seen and examined at the bedside. Alert and oriented x4. Patient reports that he sometimes has difficulty finding words when he tries to speak. Denies dizziness. Patient has cough with reported whitish yellow in color. Objective vital signs Vital Sign Date Time Temp Pulse Resp B/P (MAP) Pulse Ox O2 Delivery O2 Flow Rate FiO2 09/26/24 13:00 97.9 60 17 161/71 (101) 99 97.9 09/26/24 08:00 Room Air* 0 21 medications Current Medications Medications Dose Ordered Sig/Justino Route Start Time Stop Time Status Last Admin Dose Admin Ondansetron HCl 4 mg Q4HP PRN IV 09/25/24 22:45 Acetaminophen 650 mg Q6HP PRN PO 09/25/24 22:45 Morphine Sulfate 2 mg Q4HPRN PRN IV 09/25/24 22:45 Nitroglycerin 0.4 mg Q5MINP PRN SL 09/25/24 22:45 Morphine Sulfate 2 mg Q30M PRN IV 09/25/24 22:45 Lactated Ringer's 1,000 ml @ 50 mls/hr Q20H IV 09/26/24 06:00 Patient Own Medication 15 DAILY PO 09/26/24 10:00 Examination Physical Examination Gen - no pallor, no icterus, no cyanosis, no clubbing, no LAD, no edema . Skin - Patients skin is warm and dry. HEENT - normocephalic, atraumatic, moist mucous membranes. Neck - full ROM, no LAD, no JVD Pulmonary - B/L vesicular breath sounds. no crackles , no wheezing, no stridor. cardiovascular - normal S1,S2 heard. no murmurs heard. peripheral pulses normal radial 2+, pedal 2+. capillary refill normal <2 secs. GI - soft abdomen without tenderness to palpation .no hepatospleenomegaly. Sounds normoactive Neurological - Patient is A/O X 3 . On mini-mental state exam patient had a score of 21 Bilateral upper extremity strength 5/5, bilateral lower extremity strength 5/5, no facial droop, normal speech, no tremor, no sensory deficiets. Romberg sign negative Cn 2- normal visual acuity Cn 3, 4, 6 normal extraocular movement CN 5 - normal facial sensation and jaw movement Cn 7 normal facial muscles Cn 11 , shoulder shrugging normal and 12 normal tongue protrusion laboratory and microbiology Laboratory Tests 09/26/24 07:29 Test 09/26/24 07:29 Range/Units Serum Glucose 107 H 74-106 mg/dL Problem List/Assessment/Plan Problem List/Assessment/Plan Assessment and Plan # ?Alzeihmer's disease # ?Dementia # ?Long covid - Head CT without contrast shows no acute intracranial abnormality - Brain MRI shows no acute intracranial process - Mini mental state exam score 21 - patient reports difficulty finding words, has episodes of visuospatial dysfunction - Urine drug screen negative - Neurology consulted # Acute Bronchitis likely viral - covid 19 and influenza negative - Chest X ray shows no acute pulmonary disease - SpO2 >95% on room air # GABRIELA on CKD likely hemodynamically mediated - serum creatinine elevated at 1.54-->1.33 - GFR - improving - urine sodium, urine creatinine pending - Hba1C- 5.8% - monitor BMP and electrolytes. # leukocytopenia, thrombocytopenia likely drug induced RinVoq # H/o Leukemia # Primary versus secondary Hyperparathyroidism - PTH elevated at 252.6 -calcium slightly elevated at 10.5 -phosphorus 2.4 - vitamin-D low # vitamin B12 deficiency - replaced with a 1000 mcg IM cyanocobalamin Goals of care discussed with the patient for over 33 minutes. Full code Plan discussed with Dr. Martin Plan discussed with: Patient My Orders My Orders Orders - BETZY CHAMPION Procedure Category Date Status Time Chest Xray 1 View XY 09/26/24 Resulted 12:12 Bladder Scan ORDERS 09/26/24 Transmitted 12:12 Pt Request For Service PT 09/26/24 Logged 12:12 Date of Service: Sep 26, 2024 Billing Provider: VAHE TSE MD Common Visit Codes: [id number] INP/OBS CARE(HIGH) BETZY CHAMPION Sep 26, 2024 15:26 VAHE TSE MD Sep 28, 2024 23:12
--- NOTE | 2024-09-26 16:18 | DVHSR ---
APPROVED REPORT EXAM: Two-dimensional and M-mode echocardiogram with Doppler and color Doppler. Blood Pressure: 93/53 mmHg INDICATION tia? RISK FACTORS Height: 5'9", Weight: 156 DIMENSIONS LVDd4.7 (3.8-5.7cm)LA (2D)4.0 (1.9-4.0cm)Aortic Root3.1 (2.0-3.7cm) LVDs3.4 (2.5-4.0cm)LA (MM) (1.9-4.0cm)Aortic Cusp Exc1.6 (1.5-2.0cm) EF (%) 55.0 (55-70%)Rt. Atrium3.4 (1.9-4.0cm)Asc. Aorta cm IVSd1.0 (0.7-1.1cm)RV (D) (1.8-2.4cm) Mitral Valve MitralMitral Stenosis E wave0.71m/sMV Mean GR.mmHg A wave0.83m/sMV Peak GR.mmHg E/A ratio0.92D MVAcm2 DECEL [id number] 1/2 Timems Aortic Valve Aortic ValveAortic Stenosis V10.89m/Kvng Mean GR.3mmHg V21.17m/Kvng Peak GR.5mmHg LVOT Diameter2.2 (1.8-2.4cm)Doppler AVA2.89cm2 Pulmonic Valve V21.12m/s Other Information Quality : Technically LimitedRhythm : Technically limited study due to body habitus. Conclusion Normal left ventricular size and dimension. Normal left ventricular systolic function estimated ejec tion fraction 55%. There is a grade 1 diastolic dysfunction. Normal right ventricular size and dimension. Normal right ventricular systolic function. Normal biatrial size and dimension. Normal aortic valve structure and function. Normal mitral valve structure and function. Normal tricuspid valve structure and function. The pulmonary valve is grossly normal. No pericardial effusion.
[2024-09-26] MEDS: NIFEdipine ER 30 MG TAB PO ONE (17:39)
[2024-09-26 18:38] LABS: COVID19 ANTIGEN SOFIA FIA NEGATIVE (NEGATIVE); Rapid Influenza A Negative (Negative); Rapid Influenza B Negative (Negative)
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
[2024-09-26] MEDS: ERGOCALCIFEROL 50,000 UNIT(1.25MG) CAP PO SCH (20:51)
[2024-09-26] MEDS: CYANOCOBALAMIN (B-12) 1000 MCG/1 ML VIAL IM ONE (20:51)
[2024-09-26 21:24] LABS: Sodium Urine 58 mmol/L (40-220)
[2024-09-26 21:30] LABS: Protein, Urine < 6.0 mg/dL (1-14)
[2024-09-26 21:31] LABS: Creatinine, Urine 29.63 mg/dL (30.0-125.0)
[2024-09-27] VITALS: BP 135/62; PULSE 61; RESP 18; TEMP 98.5; O2SAT 96
[2024-09-27 04:29] VITALS: BP 126/59; PULSE 53; RESP 18; TEMP 98.3; O2SAT 96
[2024-09-27 06:59] LABS: Hemoglobin 13.4 g/dL (13.5-17.5); Mean Corpuscular Hemoglobin 31.6 pg (28.0-32.0); Mean Corpuscular Hgb Conc. 35.3 g/dL (32.0-36.0); Mean Corpuscular Volume 89.7 fL (80.0-100.0); Platelet Count (auto) 133 10^3/uL (140-450); Red Blood Cells 4.23 10^6/uL (4.5-5.90); Red Cell Distribution Width 14.6 % (11.8-14.3); White Blood Cell 3.3 10^3/uL (4.4-10.8)
[2024-09-27 07:10] LABS: Basophils % (manual) 0 (0.0-2.0); Blast Cells 0; Metamyelocytes % 0; Myelocytes % 0; Promyelocytes % 0; Reactive Lymphocytes 0
[2024-09-27 07:34] LABS: Alanine Aminotransferase 27 U/L (7-40); Alkaline Phosphatase 99 U/L (46-116); Anion Gap 6 (5-15); BUN/Creatinine Ratio 15.2 (10.0-20.0); Blood Urea Nitrogen 19 mg/dL (9-23); Calcium 10.3 mg/dL (8.7-10.4); Carbon Dioxide 27 mmol/L (20-31); Glucose 97 mg/dL (74-106); Potassium 4.3 mmol/L (3.5-5.1); Sodium 141 mmol/L (136-145)
[2024-09-27 07:35] LABS: Albumin 4.1 g/dL (3.2-4.8); Aspartate Aminotransferase 28 U/L (13-40); Total Protein 6.6 g/dL (5.7-8.2)
[2024-09-27 07:36] LABS: Bilirubin, Total 1.8 mg/dL (0.2-1.0); Chloride 108 mmol/L (98-107)
[2024-09-27 08:20] LABS: Band Neutrophils % (manual) 1; Eosinophils % (manual) 12 (0-7); Lymphocytes % (manual) 24 (10.0-50.0); Monocytes % (manual) 19 (0-12)
[2024-09-27 08:21] LABS: Platelet Estimate Decreased
[2024-09-27 09:00] VITALS: BP 135/58; PULSE 68; RESP 17; TEMP 98; O2SAT 96
[2024-09-27] MEDS: NIFEdipine ER 30 MG TAB PO SCH (11:33)
[2024-09-27 13:00] VITALS: BP 139/83; PULSE 70; RESP 17; TEMP 97.8; O2SAT 97
[2024-09-27 15:54] VITALS: PULSE 68
[2024-09-27 16:45] VITALS: BP 141/64; PULSE 71; RESP 18; TEMP 98; O2SAT 96
--- NOTE | 2024-09-27 23:30 | DVHDSRES ---
Discharge Summary Date of Admission Resident Creating Document: BETZY CHAMPION RESIDENT Sep 25, 2024 at 22:33 Date of Discharge: Sep 27, 2024 Admitting Diagnosis Episodic memory impairment and functional impairment; described as intermittent confusion episodes by the patient Wounds: no wounds Labs/Diagnostic Data: Laboratory Results Test 09/27/24 06:37 09/26/24 20:50 09/26/24 19:09 09/26/24 17:50 White Blood Count 3.3 10^3/uL (4.4-10.8) Red Blood Count 4.23 10^6/uL (4.5-5.90) Hemoglobin 13.4 g/dL (13.5-17.5) Hematocrit 38.0 % (41.0-53.0) Mean Corpuscular Volume 89.7 fL (80.0-100.0) Mean Corpuscular Hemoglobin 31.6 pg (28.0-32.0) Mean Corpuscular Hemoglobin Concent 35.3 g/dL (32.0-36.0) Red Cell Distribution Width 14.6 % (11.8-14.3) Platelet Count 133 10^3/uL (140-450) Mean Platelet Volume 8.0 fL (6.9-10.8) Neutrophils (%) (Auto) % (37.0-80.0) Lymphocytes (%) (Auto) % (10.0-50.0) Monocytes (%) (Auto) % (0.0-12.0) Basophils (%) (Auto) % (0.0-2.0) Neutrophils # (Auto) 10 ^3/uL (1.6-8.6) Lymphocytes # (Auto) 10 ^3/uL (0.4-5.4) Monocytes # (Auto) 10 ^3/uL (0-1.3) Differential Total Cells Counted 100.0 (100) Neutrophils % (Manual) 44 (37.0-80.0) Band Neutrophils % (Manual) 1 Lymphocytes % (Manual) 24 (10.0-50.0) Monocytes % (Manual) 19 (0-12) Eosinophils % (Manual) 12 (0-7) Basophils % (Manual) 0 (0.0-2.0) Metamyelocytes % (manual) 0 Myelocytes % (Manual) 0 Promyelocytes % (Manual) 0 Blast Cells % (Manual) 0 Reactive Lymphocytes 0 Platelet Estimate Decreased Sodium Level 141 mmol/L (136-145) Potassium Level 4.3 mmol/L (3.5-5.1) Chloride Level 108 mmol/L (98-107) Carbon Dioxide Level 27 mmol/L (20-31) Anion Gap 6 (5-15) Blood Urea Nitrogen 19 mg/dL (9-23) Creatinine 1.25 mg/dL (0.700-1.30) Glomerular Filtration Rate Calc 60 mL/min (>90) BUN/Creatinine Ratio 15.2 (10.0-20.0) Serum Glucose 97 mg/dL (74-106) Calcium Level 10.3 mg/dL (8.7-10.4) Total Bilirubin 1.8 mg/dL (0.2-1.0) Aspartate Amino Transferase (AST) 28 U/L (13-40) Alanine Aminotransferase (ALT) 27 U/L (7-40) Alkaline Phosphatase 99 U/L (46-116) Total Protein 6.6 g/dL (5.7-8.2) Albumin 4.1 g/dL (3.2-4.8) Urine Creatinine 29.63 mg/dL (30.0-125.0) Urine Protein/Creatinine Ratio 0.20 Urine Sodium 58 mmol/L (40-220) Urine Total Protein < 6.0 mg/dL (1-14) Influenza Type A Antigen Negative (Negative) Influenza Type B Antigen Negative (Negative) SARS-CoV-2 Antigen (Rapid) Negative (NEGATIVE) Test 09/26/24 07:29 09/25/24 20:49 09/25/24 19:50 Eosinophils (%) (Auto) 5.0 % (0.0-7.0) Eosinophils # (Auto) 0.2 10 ^3/uL (0-0.8) Basophils # (Auto) 0 10 ^3/uL (0-0.2) Nucleated Red Blood Cells 0.5 % Hemoglobin A1c 5.8 % A1C (<5.7) Lactic Acid Level 0.6 mmol/L (0.4-2.0) Phosphorus Level 2.4 mg/dL (2.4-5.1) Creatine Kinase 196 U/L (46-171) Vitamin B12 Level 350 pg/mL (211-911) Vitamin D 25-Hydroxy 7.0 ng/mL (30.0-100) Folic Acid 12.95 ng/mL (>5.38) Thyroid Stimulating Hormone (TSH) 1.46 uIU/mL (0.55-4.78) Parathyroid Hormone (Intact) 252.6 pg/mL (18.4-80.1) Prothrombin Time 10.7 sec (9.3-11.8) Prothrombin Time INR 1.01 (0.9-1.15) Activated Partial Thromboplast Time 25.6 SEC (24.5-34.5) D-Dimer, Quantitative 0.33 mg/L FEU (0.0-0.49) Magnesium Level 2.2 mg/dL (1.6-2.6) Plasma/Serum Blood Alcohol < 3.0 mg/dL (<10) Urine Color Light-yellow (Yellow) Urine Clarity Clear (Clear) Urine pH 5.0 (5.0-9.0) Urine Specific [place] 1.011 (1.001-1.035) Urine Protein Negative (Negative) Urine Ketones Negative (Negative) Urine Blood Negative /uL (Negative) Urine Nitrite Negative (Negative) Urine Bilirubin Negative (Negative) Urine Urobilinogen Normal mg/dL (Negative) Urine Leukocyte Esterase Negative /uL (Negative) Urine RBC None seen /hpf (0 - 3) Urine WBC <1 /hpf (0 - 3) Urine Squamous Epithelial Cells Few /hpf (<5) Urine Bacteria Few /hpf (None Seen) Urine Glucose Normal mg/dL (Normal) Urine Opiates Screen Neg (NEGATIVE) Urine Fentanyl Screen Neg (NEGATIVE) Urine Barbiturates Screen Neg (NEGATIVE) Urine Phencyclidine Screen Neg (NEGATIVE) Urine Amphetamines Screen Neg (NEGATIVE) Urine Benzodiazepines Screen Neg (NEGATIVE) Urine Cocaine Screen Neg (NEGATIVE) Urine Cannabinoids Screen Neg (NEGATIVE) Other Laboratory Tests 09/27/24 06:37 Brief Hx & Hospital Course: HPI Patient is a 74-year-old male with a past medical history as described below came to the ED with a chief complaint of worsening memory and functional impairment. That he had 2 episodes of COVID-10 July 2023 and another in October 2023 following which he started having episodes where he could not find words to speak and while driving he felt he was lost and did not know where he was and could not figure out how to return home. However he reports that after about 20-30 minutes he is able to figure out and uses the help of the GPS to come back home. Patient reports the episodes of cognitive impairment have been going on since October this year intermittently. Patient denies sensory or motor weakness. No speech disturbance. No visual or hearing impairment. Denies dizziness, loss of consciousness. Past medical history: Type 2 diabetes mellitus, leukemia diagnosed in 2014, rheumatoid arthritis Past surgical history: None Social history: Denies smoking, alcohol, drug use. Reports living in his own separate area in the house will resolve son also lives Home meds: Rinvoq 15 mg p.o. daily, hydroxychloroquine 200 mg p.o. daily for rheumatoid arthritis, glimepiride 2 mg p.o. b.i.d. Hospital course Patient was admitted to the hospital on initial labs showed leukocytopenia. Patient's urine drug screen was negative for any drugs. Head CT without contrast showed no acute intracranial abnormality, brain MRI without contrast showed no acute intracranial process, chronic right maxillary sinus disease. On mini-mental state exam patient had score of 21-22 which puts him in the category of mild cognitive impairment. Neurology were consulted with Dr. Cabrera who assessed the patient with suspicion of partial complex seizure, transient global amnesia, partial simple seizure. EEG was done and the patient was advised against driving with the DMV report in the chart. Patient was vitally stable through the course of hospital stay. Patient denied headache, dizziness, blurry vision, motor or sensory deficits. Patient was discharged in stable condition to home and was advised against driving until further assessment with the neurologist. Patient to follow up with Dr. Cabrera in the outpatient clinic for further management and review mental status. Review of systems Patient seen and examined at the bedside. Alert and oriented to time place and person. Patient was feeling better than when he got admitted and denies confusion. He reports that his cough is better than the previous day. Denies motor, sensory, olfactory, gustatory deficits. Physical Examination on the day of discharge Gen - no pallor, no icterus, no cyanosis, no clubbing, no LAD, no edema . Skin - Patients skin is warm and dry. HEENT - normocephalic, atraumatic, moist mucous membranes. Neck - full ROM, no LAD, no JVD Pulmonary - B/L vesicular breath sounds. no crackles , no wheezing, no stridor. cardiovascular - normal S1,S2 heard. no murmurs heard. peripheral pulses normal radial 2+, pedal 2+. capillary refill normal <2 secs. GI - soft abdomen without tenderness to palpation .no hepatosplenomegaly. Sounds normoactive Neurological - Patient is A/O X 3 . On mini-mental state exam patient had a score of 21-22 Bilateral upper extremity strength 5/5, bilateral lower extremity strength 5/5, no facial droop, normal speech, no tremor, no sensory deficits. Romberg sign negative Cn 2- normal visual acuity Cn 3, 4, 6 normal extraocular movement CN 5 - normal facial sensation and jaw movement Cn 7 normal facial muscles Cn 11 , shoulder shrugging normal and 12 normal tongue protrusion Discharge plan Advised to follow up with Neurology in the outpatient clinic in 2 weeks to review EEG and further management as advised. Patient was advised against driving at this moment until further assessment. DMV report in the chart. Patient was continued on his home medication hydroxychloroquine and Rinvoq Goals of care discussed with the patient for 20 minutes; full code Case discussed with Dr. Orozco Consults/Reason for consult Neurology consultation for confusion, cognitive decline Operations or Procedures Echo revealed Normal left ventricular size and dimension. Normal left ventricular systolic function estimated ejection fraction 55%. There is a grade 1 diastolic dysfunction. Normal right ventricular size and dimension. Normal right ventricular systolic function. Normal biatrial size and dimension. Normal aortic valve structure and function. Normal mitral valve structure and function. Normal tricuspid valve structure and function. The pulmonary valve is grossly normal. No pericardial effusion. Head CT without contrast FINDINGS: There is no evidence of acute intracranial hemorrhage, extra-axial collection, mass effect, midline shift, herniation or hydrocephalus. The ventricles, sulci and cisterns are age appropriate. The nina-white differentiation is intact. Patchy periventricular and subcortical white matter hypoattenuation is nonspecific but may be related to small vessel ischemic disease. Complete opacification of the right maxillary sinus, unchanged from prior. The surrounding soft tissues and osseous structures are unremarkable. IMPRESSION: No acute intracranial abnormality. MRI brain without contrast IMPRESSION: 1. There is no acute intracranial process. 2. Chronic right maxillary sinus disease. Carotid Doppler IMPRESSION: 1. No hemodynamically significant stenosis within the carotid arteries. Chest x-ray IMPRESSION: No acute cardiopulmonary disease. Condition at Discharge: Stable Final Diagnosis/Problems List # ? Alzeihmer's disease ? dementia # ? Partial complex seizure # ? Transient global amnesia # ? Partial simple seizure # Acute Bronchitis likely viral # GABRIELA on CKD likely hemodynamically mediated # leukocytopenia, thrombocytopenia likely drug induced RinVoq # H/o Leukemia # Primary versus secondary Hyperparathyroidism # vitamin B12 deficiency Discharge Disposition: Home Discharge Instruct/Medications Diet: Regular Activity: No Restrictions, As Tolerated Follow Up/Referral: Follow up with the PCP in one week Follow up in the neurology outpatient clinic with Dr. Cabrera in 2 weeks Medications: as per EMR Discharge Statement: "Patient was advised to return to the ER or call 911 if any headaches, dizziness, shortness of breath, chest pain, abdominal pain, bleeding, fevers, or worsening of medical condition. Patient was counseled about treatment plan, medications, possible side effects, patientverbalized understanding. All questions were answered to the best of my ability. This discharge took greater then 30 minutes in planning, reviewing documentation, counseling the patient, and discussing with other team members." ASSESSMENT ASSESSMENT Assessment # ? Alzeihmer's disease ? dementia # ? Partial complex seizure # ? Transient global amnesia # ? Partial simple seizure # Acute Bronchitis likely viral # GABRIELA on CKD likely hemodynamically mediated # leukocytopenia, thrombocytopenia likely drug induced RinVoq # H/o Leukemia # Primary versus secondary Hyperparathyroidism # vitamin B12 deficiency Addendum Addendum Addendum I was physically present for the lane portions of the service provided to patient by THE RESIDENT. I have reviewed the documentation, discussed the case with resident and agree with the resident's documentation except as noted. Also the patient's clinical case was discussed with the patient's nurse. This medical document was created using an electronic medical record system with computerized dictation system. Although this document has been carefully reviewed, there might still be some phonetic and typographical errors. These areas are purely typographical due to imperfections of the software programs, and do not reflect any compromise in the patient's medical care. Late signature. Date of Service: Sep 27, 2024 Billing Provider: TREE OROZCO MD Common Visit Codes: 53144-HLE/OBS DISCH DAY >30min Secondary Visit Codes: 91761-VDMUCLRB CARE PLAN 30 MINUTES (20 minutes) BETZY CHAMPION Sep 27, 2024 23:30 TREE OROZCO MD Sep 29, 2024 05:53
--- NOTE | 2024-09-28 19:08 | DVHEEG2 ---
Neurology EEG Procedural Note Procedural Note EXAM DATE: 09/27/2024 REFERRING DOCTOR: Dr. Johnson TECHNIQUE: Eighteen channels of EEG, 2 channels of EOG, and 1 channel of EKG were recorded using the International 10/20 system. CLINICAL DATA: The patient was referred for an EEG evaluation for the evidence of seizure disorder. MEDICATIONS: See chart BACKGROUND ACTIVITY: While the patient was awake, the background activity consisted of well regulated 9-10Hz rhythmic waveforms, symmetrically distributed over both posterior quadrants and was reactive to eye opening. ACTIVATION: Hyperventilation: Not done Photic Stimulation: Not done Sleep: Not seen IMPRESSION: This is a normal EEG. No focal, lateralized, or epileptiform features are noted. If clinically indicated to rule out a seizure disorder, recommend repeat EEG with sleep deprivation. The EKG channel showed a regular heart rate of 60 per minute [place] [address] VANDANA JOHNSON MD Sep 28, 2024 19:08
[2024-09-30 06:07] LABS: RPR Non Reactive (Non Reactive)
== END 2024-09-27 18:25 | disposition home or self-care (01) | DRG 71 ==
LOC: ER 19:13 → TELE 22:33 → TELE-WESTW 09-26 04:37
PROVIDERS: ADMIT Student in an Organized Health Care Education/Training Program; ATTEND Student in an Organized Health Care Education/Training Program
DX: G93.41 Metabolic encephalopathy (principal); G45.9 Transient cerebral ischemic attack, unspecified; N17.9 Acute kidney failure, unspecified; N25.81 Secondary hyperparathyroidism of renal origin; G45.4 Transient global amnesia; G40.109 Localization-related (focal) (partial) symptomatic epilepsy and epileptic syndromes with simple partial seizures, not intractable, without status epilepticus; G40.209 Localization-related (focal) (partial) symptomatic epilepsy and epileptic syndromes with complex partial seizures, not intractable, without status epilepticus; M06.9 Rheumatoid arthritis, unspecified; Z20.822 Contact with and (suspected) exposure to COVID-19; I12.9 Hypertensive chronic kidney disease with stage 1 through stage 4 chronic kidney disease, or unspecified chronic kidney disease; E11.22 Type 2 diabetes mellitus with diabetic chronic kidney disease; N18.9 Chronic kidney disease, unspecified; E53.8 Deficiency of other specified B group vitamins; G30.9 Alzheimer's disease, unspecified; F02.80 Dementia in other diseases classified elsewhere, unspecified severity, without behavioral disturbance, psychotic disturbance, mood disturbance, and anxiety; J20.8 Acute bronchitis due to other specified organisms; D69.59 Other secondary thrombocytopenia; T50.995A Adverse effect of other drugs, medicaments and biological substances, initial encounter; Z85.6 Personal history of leukemia; Z82.49 Family history of ischemic heart disease and other diseases of the circulatory system; Z83.3 Family history of diabetes mellitus; Y92.89 Other specified places as the place of occurrence of the external cause; Z79.899 Other long term (current) drug therapy
CPT/HCPCS: 36415; 70450; 70551; 71045; 80053; 80307; 80320; 81001; 82306; 82550; 82570; 82607; 82746; 83036; 83605; 83735; 83970; 84100; 84156; 84300; 84443; 85007; 85025; 85027; 85379; 85610; 85730; 86592; 87426; 87804; 93306; 93886; 95819; 96360; 97163; 97530; G0378

== ENCOUNTER 2025-07-01 23:01 | Inpatient (IN) | payer OTHER ==
[~2025-07-01] VITALS: Ht 175.3 cm; Wt 134.0 kg
[~2025-07-01 23:01] MED LIST changes: +UPAD15TA PO
--- NOTE | 2025-07-02 01:10 | DVH ---
EXAM: CT HEAD WITHOUT CONTRAST INDICATION: CONFUSION TECHNIQUE: CT of the head without intravenous contrast. Radiation Dose : 1. Head: CT Dose: CTDI volume is 54.92 mGy. Dose-length product is 1.71 mGy*cm The dose indicators for CT are the volume Computed Tomography (CT) Dose Index (CTDIvol) and the Dose Length Product (DLP), and are measured in units of mGy and mGy-cm, respectively. These indicators are not patient dose, but values generated from the CT scanner acquisition factors. The report includes radiation exposure data for exposures received during this examination. COMPARISON: MRI BRAIN HEAD WO CONTRAST on DOS: 09/26/24, CT HEAD WITHOUT CONTRAST on DOS: 09/25/24, CT BRAIN on DOS: 11/24/23, CT HEAD WITHOUT CONTRAST on DOS: 10/13/23, HEAD WITHOUT CONTRAST on DOS: 2 FINDINGS: No acute territorial infarct, intracranial hemorrhage, or mass effect. There are global involutional changes with compensatory prominence of the ventricles and sulci. Patchy periventricular and subcorti rodrigue white matter hypoattenuation is nonspecific but may be related to small vessel ischemic disease. The orbits are normal. Chronic opacification of the right maxillary antrum. The osseous structures a re unremarkable. IMPRESSION: 1. No acute territorial infarct, intracranial hemorrhage, or mass effect. 2. Age-related involutional changes. Chronic microvascular changes. 3. If clinical symptoms persist, MRI may be beneficial in further evaluation. Radiation optimization: All CT scans at this facility use at least one of these dose optimization bimal hniques: automated exposure control mA and/or kV adjustment per patient size (includes targeted exam s where dose is matched to clinical indication) or iterative reconstruction.
[2025-07-02 01:12] LABS: Alanine Aminotransferase 29 U/L (7-40); Alkaline Phosphatase 99 U/L (46-116); Anion Gap 8 (5-15); BUN/Creatinine Ratio 15.1 (10.0-20.0); Calcium 10.0 mg/dL (8.7-10.4); Carbon Dioxide 26 mmol/L (20-31); Potassium 4.1 mmol/L (3.5-5.1); Sodium 142 mmol/L (136-145); Total Protein 7.9 g/dL (5.7-8.2)
--- NOTE | 2025-07-02 01:12 | DVH ---
INDICATION: CONFUSION TECHNIQUE: Frontal view of the chest. COMPARISON: XY CHEST XRAY 1 VIEW on DOS: 09/26/24, XY CHEST PORTABLE on DOS: 10/13/23, CT ANGIO CHEST CONTRAST on DOS: 11/16/21 FINDINGS/IMPRESSION: The lungs are clear. The cardiomediastinal silhouette is unremarkable. No pleural effusion or pneumo thorax. No acute osseous abnormality.
[2025-07-02 01:13] LABS: Albumin 4.9 g/dL (3.2-4.8); Bilirubin, Total 1.4 mg/dL (0.2-1.0); Blood Urea Nitrogen 24 mg/dL (9-23); Chloride 108 mmol/L (98-107); Glucose 115 mg/dL (74-106)
--- NOTE | 2025-07-02 01:55 | ED.PDOC ---
Altered Mental Status HPI Comments Discharge diagnosis from 09/27/24 # ? Alzeihmer's disease ? dementia # ? Partial complex seizure # ? Transient global amnesia # ? Partial simple seizure # Acute Bronchitis likely viral # GABRIELA on CKD likely hemodynamically mediated # leukocytopenia, thrombocytopenia likely drug induced RinVoq # H/o Leukemia # Primary versus secondary Hyperparathyroidism # vitamin B12 deficiency HPI: 75 year old male presents to the ED with a chief complaint of ALOC onset last night around 21:30. Patient began experiencing ALOC around 21:30, states confusion episode lasted about 20 minutes. He was driving home from friend's house, was driving down [facility]. was confused, did not know where he was. He is currently experiencing headache. Denies fever, chills, nausea, vomiting, diarrhea, chest pain, shortness of breath, head injury, LOC, dysuria. No other symptoms or modifying factors present at this time. Initial Vitals BP: 164/81 HR: 64 RR: 18 O2: 98% Temp: 98.3 F Past Medical History: Leukemia, arthritis, DM, depression Past Surgical History: tonsillectomy Social History: Denies ETOH, smoking, and drug use. Medications: Denies Allergies: NKDA HPI: Poor Historian. Episode of disorientation/confusion that lasted for 15 minutes. REVIEW OF SYSTEMS: CONSTITUTIONAL: Denies acute: fever, diaphoresis, chills, generalized weakness. HEAD: Denies acute: headache, photophobia Eyes: Denies acute: Double vision, vision loss, eye pain, eye discharge. EARS: Denies acute: tinnitus, hearing loss, ear discharge, ear pain, THROAT: Denies acute: sore throat, swelling, difficulty swallowing , pain with swallowing, change in voice. NECK: Denies acute: neck pain, neck swelling, stiff neck. HEART: Denies acute : chest pain, palpitations, LUNGS: Denies acute: SOB, wheezing, cough, hemoptysis ABDOMEN: Denies acute: abdominal pain, Nausea, Vomiting, diarrhea, melena , hematemesis, hematochezia SKIN: Denies acute: rash, redness, lesions, itchiness. EXTREMITIES: Denies acute: calf pain, numbness, tingling, weakness, denies pain in extremity. Denies acute: Low back pain. Neuro: Denies acute: focal neurological deficit, motor or sensory focal neurological deficit, tremors, seizure like activity, dizziness, loss of bowel or bladder function, cauda equina like symptoms. : Denies acute: dysuria, hematuria, flank pain, increase in urinary frequency. PSYCH: Denies acute: hallucination, suicidal ideation, homicidal ideation. PHYSICAL EXAM: General: -----no---acute distress, awake and alert. Head: normocephalic, atraumatic. Neck: supple, trachea is midline, no swelling. Throat: Normal phonation. Eyes:, no erythema, no purulent discharge, no proptosis, no icterus. Heart: regular rate, regular rhythm, no significant murmur appreciated. Lungs: no apparent respiratory distress, Able to speak in full sentences. No wheezing, no rhonchi, no crackles. No stridors Clear to auscultation bilaterally. Abdomen: non tender to palpation, non distended, soft, no guarding, no rebound, + bowel sounds. Neuro: Awake, Alert, oriented to name, self, situation, follows commands GCS=15. Speech is normal. Skin: no petechia, no purpura, no cyanosis, non-pale, not jaundice. Lower extremities: --no - Pitting edema no deformity, no focal swelling, no calf TTP. Makes eye contact. moves all four extremities. Ambulating in the ED independently. ED COURSE: DISCLAIMER: This medical document was created using an electronic medical record system with voice recognition software and computerized dictation system. Although this document has been carefully reviewed, there might still be some phonetic and ty pographical errors. Occasional wrong-word or "sound-alike" substitutions may have occurred due to the inherent limitations of voice recognition software. These areas are purely typographical due to imperfections of the software programs and do not reflect any compromise in the patient's medical care. Please read the chart carefully and recognize, using context, where these substitutions have occurred. Chief Complaint: Confusion Time Seen by MD: 01:50 Primary Care Provider: UNKNOWN Reviewed Notes: Medications, Allergies Allergies: Coded Allergies: NO KNOWN ALLERGIES (Unverified , 11/13/21) Home Meds Reported Medications Upadacitinib (Rinvoq) 15 Mg Tab, 1 TAB PO DAILY 09/26/24 Hydroxychloroquine Sulfate (Hydroxychloroquine Sulfat) 200 Mg Tab, 200 MG PO DAILY for 30 Days, MG 11/15/21 Glimepiride (Glimepiride) 2 Mg Tab, 2 MG PO BID for 30 Days, MG 11/15/21 Information Source: Patient Mode of Arrival: Ambulatory Severity: Moderate Timing: Hours Duration: Since onset Prehospital treatment: None Quality: Confusion Recent: None History of: Diabetes Associated Signs and Symptoms: Headache Past Medical History PAST MEDICAL HISTORY: Arthritis, Cancer, Depression, DM, HTN Surgical History: Tonsillectomy Family History Family History: Unknown Social History Smoker: Non-Smoker Alcohol: Denies ETOH Use Drugs: Denies Drug Use Lives In: Home Was a procedure done? Was a procedure done?: No Differential Diagnosis (ALOC) Differential Diagnosis: Other (DDX include CVA, TGA, cerebellar ischemia/infarct, carotid stenosis, Intracranial mass/infection/bleed, encephalopathy, electrolyte abnormality, thyroid disease, hydrocephalus, hypoglycemia, drug toxicity, cardiac arrhythmia, seizure, infection in the elderly, Hyperammonemia., kidney failure., sepsis.) X-Ray, Labs, Meds, VS Vital Signs Date Time Temp Pulse Resp B/P (MAP) Pulse Ox O2 Delivery O2 Flow Rate FiO2 07/02/25 04:14 97.9 78 18 148/46 (80) 98 97.9 07/01/25 23:01 98.3 64 18 164/81 98 98.3 Lab Test 07/02/25 02:30 07/02/25 01:22 07/02/25 00:22 Range/Units Urine Color Colorless Yellow Urine Clarity Clear Clear Urine pH 5.5 5.0-9.0 Urine Specific [place] 1.010 1.001-1.035 Urine Protein Negative Negative Urine Ketones Negative Negative Urine Blood Negative Negative /uL Urine Nitrite Negative Negative Urine Bilirubin Negative Negative Urine Urobilinogen Normal Negative mg/dL Urine Leukocyte Esterase Negative Negative /uL Urine RBC 1 0 - 3 /hpf Urine Microscopic WBC < 1 0-3 /HPF Urine Squamous Epithelial Cells None seen <5 /hpf Urine Bacteria None seen None Seen /hpf Urine Glucose Normal Normal mg/dL Urine Opiates Screen Neg NEGATIVE Urine Fentanyl Screen Neg NEGATIVE Urine Barbiturates Screen Neg NEGATIVE Urine Phencyclidine Screen Neg NEGATIVE Urine Amphetamines Screen Neg NEGATIVE Urine Benzodiazepines Screen Neg NEGATIVE Urine Cocaine Screen Neg NEGATIVE Urine Cannabinoids Screen Neg NEGATIVE Troponin I High Sensitivity 6 6 </=54 ng/L White Blood Count 2.5 L 4.4-10.8 10^3/uL Red Blood Count 4.29 L 4.5-5.90 10^6/uL Hemoglobin 13.0 L 13.5-17.5 g/dL Hematocrit 38.2 L 41.0-53.0 % Mean Corpuscular Volume 88.9 80.0-100.0 fL Mean Corpuscular Hemoglobin 30.4 28.0-32.0 pg Mean Corpuscular Hemoglobin Concent 34.2 32.0-36.0 g/dL Red Cell Distribution Width 15.6 H 11.8-14.3 % Platelet Count 149 140-450 10^3/uL Mean Platelet Volume 8.6 6.9-10.8 fL Neutrophils (%) (Auto) 47.6 37.0-80.0 % Lymphocytes (%) (Auto) 31.2 10.0-50.0 % Monocytes (%) (Auto) 18.5 H 0.0-12.0 % Eosinophils (%) (Auto) 1.9 0.0-7.0 % Basophils (%) (Auto) 0.8 0.0-2.0 % Neutrophils # (Auto) 1.2 L 1.6-8.6 10 ^3/uL Lymphocytes # (Auto) 0.8 0.4-5.4 10 ^3/uL Monocytes # (Auto) 0.5 0-1.3 10 ^3/uL Eosinophils # (Auto) 0 0-0.8 10 ^3/uL Basophils # (Auto) 0 0-0.2 10 ^3/uL Nucleated Red Blood Cells 0.9 % Sodium Level 142 136-145 mmol/L Potassium Level 4.1 3.5-5.1 mmol/L Chloride Level 108 H 98-107 mmol/L Carbon Dioxide Level 26 20-31 mmol/L Anion Gap 8 5-15 Blood Urea Nitrogen 24 H 9-23 mg/dL Creatinine 1.59 H 0.700-1.30 mg/dL Glomerular Filtration Rate Calc 44 >90 mL/min BUN/Creatinine Ratio 15.1 10.0-20.0 Serum Glucose 115 H 74-106 mg/dL Calcium Level 10.0 8.7-10.4 mg/dL Total Bilirubin 1.4 H 0.2-1.0 mg/dL Aspartate Amino Transferase (AST) 44 H 13-40 U/L Alanine Aminotransferase (ALT) 29 7-40 U/L Alkaline Phosphatase 99 46-116 U/L Total Protein 7.9 5.7-8.2 g/dL Albumin 4.9 H 3.2-4.8 g/dL [place] [id number] Ph: [phone] DIAGNOSTIC IMAGING Diagnostic Imaging Report : [id number] Signed PATIENT: LUPILLO DE LA PAZ ACCT: [id number] UNIT: [id number] : 1950 LOC: ER ROOM / BED: / AGE / SEX: 75 / M ADM STATUS: REG ER SERVICE 0001 ORDERING PHYSICIAN: NAYELY HAWKINS DO PROCEDURE(s): HWOCT - HEAD WITHOUT CONTRAST REASON: CONFUSION ORDER NUMBER(s): [id number], ACCESSION NUMBER(s): [id number] EXAM: CT HEAD WITHOUT CONTRAST INDICATION: CONFUSION TECHNIQUE: CT of the head without intravenous contrast. Radiation Dose : 1. Head: CT Dose: CTDI volume is 54.92 mGy. Dose-length product is 1.71 mGy*cm The dose indicators for CT are the volume Computed Tomography (CT) Dose Index (CTDIvol) and the Dose Length Product (DLP), and are measured in units of mGy and mGy-cm, respectively. These indicators are not patient dose, but values generated from the CT scanner acquisition factors. The report includes radiation exposure data for exposures received during this examination. COMPARISON: MRI BRAIN HEAD WO CONTRAST on DOS: 09/26/24, CT HEAD WITHOUT CONTRAST on DOS: 09/25/24, CT BRAIN on DOS: 11/24/23, CT HEAD WITHOUT CONTRAST on DOS: 10/13/23, HEAD WITHOUT CONTRAST on DOS: 11/13/21 FINDINGS: No acute territorial infarct, intracranial hemorrhage, or mass effect. There are global involutional changes with compensatory prominence of the ventricles and sulci. Patchy periventricular and subcortical white matter hypoattenuation is nonspecific but may be related to small vessel ischemic disease. The orbits are normal. Chronic opacification of the right maxillary antrum. The osseous structures are unremarkable. IMPRESSION: 1. No acute territorial infarct, intracranial hemorrhage, or mass effect. 2. Age-related involutional changes. Chronic microvascular changes. 3. If clinical symptoms persist, MRI may be beneficial in further evaluation. Radiation optimization: All CT scans at this facility use at least one of these dose optimization techniques: automated exposure control mA and/or kV adjustment per patient size (includes targeted exams where dose is matched to clinical indication) or iterative reconstruction. ATED BY: REX PALMER MD DICTATED DATE/TIME: 07/02/25107 SIGNED BY: REX PALMER MD SIGNED DATE/TIME: 07/02/25107 CC: [place] [id number] Ph: [phone] DIAGNOSTIC IMAGING Diagnostic Imaging Report : [id number] Signed PATIENT: LUPILLO DE LA PAZ ACCT: [id number] UNIT: [id number] : 1950 LOC: ER ROOM / BED: / AGE / SEX: 75 / M ADM STATUS: REG ER SERVICE 24 ORDERING PHYSICIAN: NAYELY HAWKINS DO PROCEDURE(s): CXRP - CHEST PORTABLE REASON: CONFUSION ORDER NUMBER(s): [id number], ACCESSION NUMBER(s): [id number] INDICATION: CONFUSION TECHNIQUE: Frontal view of the chest. COMPARISON: XY CHEST XRAY 1 VIEW on DOS: 09/26/24, XY CHEST PORTABLE on DOS: 10/13/23, CT ANGIO CHEST CONTRAST on DOS: 11/16/21 FINDINGS/IMPRESSION: The lungs are clear. The cardiomediastinal silhouette is unremarkable. No pleural effusion or pneumothorax. No acute osseous abnormality. ATED BY: REX PALMER MD DICTATED DATE/TIME: 07/02/25108 SIGNED BY: REX PALMER MD SIGNED DATE/TIME: 07/02/25108 CC: [place] [id number] Ph: [phone] DIAGNOSTIC IMAGING Diagnostic Imaging Report : [id number] Signed PATIENT: LUPILLO DE LA PAZ ACCT: [id number] UNIT: [id number] : 1950 LOC: ER ROOM / BED: / AGE / SEX: 75 / M ADM STATUS: REG ER SERVICE 0001 ORDERING PHYSICIAN: NAYELY HAWKINS DO PROCEDURE(s): HWOCT - HEAD WITHOUT CONTRAST REASON: CONFUSION ORDER NUMBER(s): [id number], ACCESSION NUMBER(s): [id number] EXAM: CT HEAD WITHOUT CONTRAST INDICATION: CONFUSION TECHNIQUE: CT of the head without intravenous contrast. Radiation Dose : 1. Head: CT Dose: CTDI volume is 54.92 mGy. Dose-length product is 1.71 mGy*cm The dose indicators for CT are the volume Computed Tomography (CT) Dose Index (CTDIvol) and the Dose Length Product (DLP), and are measured in units of mGy and mGy-cm, respectively. These indicators are not patient dose, but values generated from the CT scanner acquisition factors. The report includes radiation exposure data for exposures received during this examination. COMPARISON: MRI BRAIN HEAD WO CONTRAST on DOS: 09/26/24, CT HEAD WITHOUT CONTRAST on DOS: 09/25/24, CT BRAIN on DOS: 11/24/23, CT HEAD WITHOUT CONTRAST on DOS: 10/13/23, HEAD WITHOUT CONTRAST on DOS: 11/13/21 FINDINGS: No acute territorial infarct, intracranial hemorrhage, or mass effect. There are global involutional changes with compensatory prominence of the ventricles and sulci. Patchy periventricular and subcortical white matter hypoattenuation is no nspecific but may be related to small vessel ischemic disease. The orbits are normal. Chronic opacification of the right maxillary antrum. The osseous structures are unremarkable. IMPRESSION: 1. No acute territorial infarct, intracranial hemorrhage, or mass effect. 2. Age-related involutional changes. Chronic microvascular changes. 3. If clinical symptoms persist, MRI may be beneficial in further evaluation. Radiation optimization: All CT scans at this facility use at least one of these dose optimization techniques: automated exposure control mA and/or kV adjustment per patient size (includes targeted exams where dose is matched to clinical indication) or iterative reconstruction. ATED BY: REX PALMER MD DICTATED DATE/TIME: 07/02/25107 SIGNED BY: REX PALMER MD SIGNED DATE/TIME: 07/02/25107 CC: Time of 1ST Reevaluation: 02:20 Reevaluation 1ST: Unchanged Patient Education/Counseling: Diagnosis, Treatment Family Education/Counseling: No Family Present Comments MDM: patient presented with the above HPI.-episode of disorientation/confusion- ----workup was initiated. patient was found with the above mentioned diagnosis. the following medications were ordered: please refer to order lists of meds and tests obtained by myself Dr. Hawkins. Patient ED course and VS have been stabilized. Patient has been reassessed in the ED and remained in a stable condition. Pertinent incidental findings were discussed with the patient and/or family. Patient/family voices understanding and is agreeable with plan. Patient has been observed in the ED adequate length of time to insure improvement/stability. Escalation of care considered: Consideration of escalation to observation or admission Patient was ADMITTED to the medicine team for further evaluation and treatment of their presentation. All the reports of any imaging studies that were ordered by myself were reviewed by myself. Departure 1 Departure Time of Disposition: 02:45 Impression: Primary Impression: Acute confusional state Disposition: ADMITTED INPATIENT Admit to: [facility] Condition: Guarded Discharged With: Self Critical Care Note Critical Care Time?: No I personally scribed for NAYELY HAWKINS DO ([email or web address]) on 07/02/25 at 01:55. Electronically submitted by Beth Dove ([email or web address]). I personally scribed for NAYELY HAWKINS DO ([email or web address]) on 07/02/25 at 03:11. Electronically submitted by Beth Dove ([email or web address]). NAYELY HAWKINS DO Jul 02, 2025 01:55
[2025-07-02 01:59] LABS: Hematocrit 38.2 % (41.0-53.0); Hemoglobin 13.0 g/dL (13.5-17.5); Mean Corpuscular Hemoglobin 30.4 pg (28.0-32.0); Mean Corpuscular Volume 88.9 fL (80.0-100.0); Nucleated Red Blood Cells % 0.9 %
[2025-07-02 02:56] LABS: Urine Protein, UAD Negative (Negative)
[2025-07-02] MEDS ORDERED: ONDANSETRON HCL 4 MG/2 ML VIAL IV PRN (04:45)
--- NOTE | 2025-07-02 04:51 | DVHHP2 ---
History of Present Illness Reason for Visit: Confusion History of Present Illness 75-year-old male presents for evaluation of altered mental status. Patient reports being out with friends and when driving home last night he became disoriented not knowing where he was driving two. He states the episode lasted approximately 20 minutes. He also reports having a headache and unsteady gait. Denies unilateral weakness or slurred speech. No cardiac or respiratory symptoms. Past Medical History Arthritis, diabetes mellitus, leukemia Past Surgical History Tonsillectomy Family History Noncontributory Smoke: No ALCOHOL: none Drugs: None Lives: with Family Review of Systems Review of Systems Review of systems are currently negative otherwise addressed in HPI. Allergies: Coded Allergies: NO KNOWN ALLERGIES (Unverified , 11/13/21) Medications Current Medications Medications Dose Ordered Sig/Justino Route Start Time Stop Time Status Last Admin Dose Admin Patient Own Medication 15 mg DAILY PO 07/02/25 10:00 UNV Ondansetron HCl 4 mg Q4HP PRN IV 07/02/25 04:45 Acetaminophen 650 mg Q6HP PRN PO 07/02/25 04:45 Exam Vital Signs Vital Signs Date Time Temp Pulse Resp B/P (MAP) Pulse Ox O2 Delivery O2 Flow Rate FiO2 07/02/25 04:14 97.9 78 18 148/46 (80) 98 97.9 Exam Gen: 75-year-old male in no apparent distress. Skin: Warm, dry, normal color and texture, no rash. HEENT: Normocephalic atraumatic, mucous membranes moist and pink. Neck: Cervical and supraclavicular nodes normal without enlargement, trachea is midline, thyroid gland is normal without masses. Pulmonary: Clear to auscultation and percussion bilaterally. Cardiac: Regular rate and rhythm. No murmur Abdomen: Soft, nontender, nondistended, bowel sounds present all 4 quadrants, no guarding, no rigidity, no organomegaly. Extremities: No cyanosis, clubbing, no edema Neuro: Cranial nerves II through XII grossly intact, normal affect and speech, no focal motor deficits. Labs/Xrays ORDERING PHYSICIAN: NAYELY HAWKINS DO PROCEDURE(s): CXRP - CHEST PORTABLE REASON: CONFUSION ORDER NUMBER(s): [id number], ACCESSION NUMBER(s): [id number] INDICATION: CONFUSION TECHNIQUE: Frontal view of the chest. COMPARISON: XY CHEST XRAY 1 VIEW on DOS: 09/26/24, XY CHEST PORTABLE on DOS: 10/13/23, CT ANGIO CHEST CONTRAST on DOS: 11/16/21 FINDINGS/IMPRESSION: The lungs are clear. The cardiomediastinal silhouette is unremarkable. No pleural effusion or pneumothorax. No acute osseous abnormality. RING PHYSICIAN: NAYELY HAWKINS DO PROCEDURE(s): HWOCT - HEAD WITHOUT CONTRAST REASON: CONFUSION ORDER NUMBER(s): [id number], ACCESSION NUMBER(s): [id number] EXAM: CT HEAD WITHOUT CONTRAST INDICATION: CONFUSION TECHNIQUE: CT of the head without intravenous contrast. Radiation Dose : 1. Head: CT Dose: CTDI volume is 54.92 mGy. Dose-length product is 1.71 mGy*cm The dose indicators for CT are the volume Computed Tomography (CT) Dose Index (CTDIvol) and the Dose Length Product (DLP), and are measured in units of mGy and mGy-cm, respectively. These indicators are not patient dose, but values generated from the CT scanner acquisition factors. The report includes radiation exposure data for exposures received during this examination. COMPARISON: MRI BRAIN HEAD WO CONTRAST on DOS: 09/26/24, CT HEAD WITHOUT CONTRAST on DOS: 09/25/24, CT BRAIN on DOS: 11/24/23, CT HEAD WITHOUT CONTRAST on DOS: 10/13/23, HEAD WITHOUT CONTRAST on DOS: 11/13/21 FINDINGS: No acute territorial infarct, intracranial hemorrhage, or mass effect. There are global involutional changes with compensatory prominence of the ventricles and sulci. Patchy periventricular and subcortical white matter hypoattenuation is nonspecific but may be related to small vessel ischemic disease. The orbits are normal. Chronic opacification of the right maxillary antrum. The osseous structures are unremarkable. IMPRESSION: 1. No acute territorial infarct, intracranial hemorrhage, or mass effect. 2. Age-related involutional changes. Chronic microvascular changes. 3. If clinical symptoms persist, MRI may be beneficial in further evaluation. Radiation optimization: All CT scans at this facility use at least one of these dose optimization techniques: automated exposure control mA and/or kV adjustment per patient size (includes targeted exams where dose is matched to clinical indication) or iterative reconstruction. Labs Test 07/02/25 02:30 07/02/25 01:22 07/02/25 00:22 Range/Units Urine Color Colorless Yellow Urine Clarity Clear Clear Urine pH 5.5 5.0-9.0 Urine Specific [place] 1.010 1.001-1.035 Urine Protein Negative Negative Urine Ketones Negative Negative Urine Blood Negative Negative /uL Urine Nitrite Negative Negative Urine Bilirubin Negative Negative Urine Urobilinogen Normal Negative mg/dL Urine Leukocyte Esterase Negative Negative /uL Urine RBC 1 0 - 3 /hpf Urine Microscopic WBC < 1 0-3 /HPF Urine Squamous Epithelial Cells None seen <5 /hpf Urine Bacteria None seen None Seen /hpf Urine Glucose Normal Normal mg/dL Troponin I High Sensitivity 6 </=54 ng/L White Blood Count 2.5 L 4.4-10.8 10^3/uL Red Blood Count 4.29 L 4.5-5.90 10^6/uL Hemoglobin 13.0 L 13.5-17.5 g/dL Hematocrit 38.2 L 41.0-53.0 % Mean Corpuscular Volume 88.9 80.0-100.0 fL Mean Corpuscular Hemoglobin 30.4 28.0-32.0 pg Mean Corpuscular Hemoglobin Concent 34.2 32.0-36.0 g/dL Red Cell Distribution Width 15.6 H 11.8-14.3 % Platelet Count 149 140-450 10^3/uL Mean Platelet Volume 8.6 6.9-10.8 fL Neutrophils (%) (Auto) 47.6 37.0-80.0 % Lymphocytes (%) (Auto) 31.2 10.0-50.0 % Monocytes (%) (Auto) 18.5 H 0.0-12.0 % Eosinophils (%) (Auto) 1.9 0.0-7.0 % Basophils (%) (Auto) 0.8 0.0-2.0 % Neutrophils # (Auto) 1.2 L 1.6-8.6 10 ^3/uL Lymphocytes # (Auto) 0.8 0.4-5.4 10 ^3/uL Monocytes # (Auto) 0.5 0-1.3 10 ^3/uL Eosinophils # (Auto) 0 0-0.8 10 ^3/uL Basophils # (Auto) 0 0-0.2 10 ^3/uL Nucleated Red Blood Cells 0.9 % Sodium Level 142 136-145 mmol/L Potassium Level 4.1 3.5-5.1 mmol/L Chloride Level 108 H 98-107 mmol/L Carbon Dioxide Level 26 20-31 mmol/L Anion Gap 8 5-15 Blood Urea Nitrogen 24 H 9-23 mg/dL Creatinine 1.59 H 0.700-1.30 mg/dL Glomerular Filtration Rate Calc 44 >90 mL/min BUN/Creatinine Ratio 15.1 10.0-20.0 Serum Glucose 115 H 74-106 mg/dL Calcium Level 10.0 8.7-10.4 mg/dL Total Bilirubin 1.4 H 0.2-1.0 mg/dL Aspartate Amino Transferase (AST) 44 H 13-40 U/L Alanine Aminotransferase (ALT) 29 7-40 U/L Alkaline Phosphatase 99 46-116 U/L Total Protein 7.9 5.7-8.2 g/dL Albumin 4.9 H 3.2-4.8 g/dL SEPSIS Sepsis Screen Date sepsis recognized/suspect: Jul 01, 2025 Time Sepsis recognized/suspect: 2300 Recent Procedure: No On Antibiotic Therapy: No Respiratory Rate >20: No Heart Rate >90: No Temp<36 C (96.8 F) or >38.3 C: No SBP <90 or MAP <65 mmHG: No New Acute Mental Status Change: No Is the patient on CPAP, BIPAP,: No Physician Orders Head Without Contrast (07/02/25 00:01) Hand Riveter (07/02/25 ) Chest Portable (07/02/25 00:01) Electrocardigram (07/02/25 00:01) Brain Head Wo Contrast (07/02/25 04:40) (Nf) Rinvoq (07/02/25 10:00) Basic Metabolic Panel (07/03/25 04:00) Sodium Chloride 0.9% (07/02/25 04:45) Consistent Carb(Ccho)Diabetes (07/02/25 Breakfast) Admit (07/02/25 04:40) Ondansetron Hcl (Zofran) (07/02/25 04:45) Condition: Stable (07/02/25 04:40) Acetaminophen Tablet (Tylenol Tablet) (07/02/25 04:45) Bedrest With Bathroom Privileg (07/02/25 04:40) Vital Signs Date Time Temp Pulse Resp B/P (MAP) Pulse Ox O2 Delivery O2 Flow Rate FiO2 07/02/25 04:14 97.9 78 18 148/46 (80) 98 97.9 07/01/25 23:01 98.3 64 18 164/81 98 98.3 Laboratory Tests Test 07/02/25 00:22 White Blood Count 2.5 10^3/uL (4.4-10.8) L Assessment/Plan Assessment/Plan Assessment Questionable TIA ? Transient global amnesia Acute kidney injury Leukocytopenia Diabetes mellitus History of leukemia Plan Admit the patient to [facility] to the hospitalist MRI of the brain pending Resume home medications Continue treatment per orders. Plan discussed with: Patient My Orders Orders - PAT LUNA Procedure Category Date Status Time Brain Head Wo Contrast MRI 07/02/25 Logged 04:40 (Nf) Rinvoq PHA 07/02/25 Pending 10:00 Basic Metabolic Panel LAB 07/03/25 Verified 04:00 Sodium Chloride 0.9% PHA 07/02/25 In Process 04:45 Consistent DIET 07/02/25 Transmitted Carb(Ccho)Diabetes Breakfast Admit ADMIT 07/02/25 Transmitted 04:40 Ondansetron Hcl PHA 07/02/25 In Process (Zofran) 04:45 Condition: Stable COLE 07/02/25 In Process 04:40 Acetaminophen Tablet PHA 07/02/25 In Process (Tylenol Tablet) 04:45 Bedrest With Bathroom COLE 07/02/25 In Process Privileg 04:40 Date of Service: Jul 02, 2025 Billing Provider: PAT LUNA Common Visit Codes: [id number] INP/OBS CARE (MOD) PAT LUNA Jul 02, 2025 04:51
[2025-07-02 07:33] VITALS: PULSE 74; RESP 20; O2SAT 98
--- NOTE | 2025-07-02 08:24 | DVH ---
CLINICAL INDICATION: Transient ischemic attack. COMPARISON: CT HEAD WITHOUT CONTRAST on DOS: 07/02/25, MRI BRAIN HEAD WO CONTRAST on DOS: 09/26/24, CT HEAD WITHOUT CONTRAST on DOS: 09/25/24 TECHNIQUE: Multisequence multiplanar MRI images of the brain were obtained without contrast. FINDINGS: No acute infarct or hemorrhage. No mass or midline shift. There are a few scattered areas of T2/FLAIR hyperintense signal in the periventricular and subcortical white matter are nonspecific, but most likely sequelae of chronic small vessel ischemic disease. Ventricles and sulci are within no rmal limits. Basal cisterns are patent. Cerebellum, brainstem, and midline structures are within norm al limits. There is mucosal thickening and fluid completely filling the right maxillary sinus. Orbits are grossly unremarkable. IMPRESSION: 1. No evidence of acute intracranial abnormality. 2. Nonacute findings as described above. 3. Right maxillary sinusitis.
[2025-07-02] MEDS: RINVOQ 15 MG PO SCH (10:00)
[2025-07-02 12:39] LABS: Amphetamine Screen, Urine Neg (NEGATIVE); Barbiturate Scree,Urine Neg (NEGATIVE); Benzodiazephine Screen, Urine Neg (NEGATIVE); Cannabinoid Screen, Urine Neg (NEGATIVE); Cocaine Screen, Urine Neg (NEGATIVE); Opiate Scree,Urine Neg (NEGATIVE); Phencyclidine Screen, Urine Neg (NEGATIVE)
[2025-07-02 14:18] VITALS: BP 155/75; PULSE 64; RESP 18; TEMP 98.5; O2SAT 95
[2025-07-02] MEDS: SODIUM CHLORIDE 0.9% 500 ML IV ONE (14:34)
--- NOTE | 2025-07-02 15:33 | DVHPN2 ---
Subjective He was admitted for altered level of consciousness He is more alert and oriented today He had an episode 2 days ago where he was disoriented and did not know what is going on for like 20 minutes with slurred speech Changes from previous H/P or p: Changes Objective Vitals Vital Signs Date Time Temp Pulse Resp B/P (MAP) Pulse Ox O2 Delivery O2 Flow Rate FiO2 07/02/25 14:18 98.5 64 18 155/75 (101) 95 98.5 07/02/25 07:33 Room Air* 0 21 General Appearance: Alert, Oriented X3, Cooperative Lungs: Clear to auscultation, Normal air movement Cardiovascular: Regular rate, Normal S1, Normal S2 Abdomen: Normal bowel sounds, Soft, No tenderness Extremities: No edema Medications Current Medications Medications Dose Ordered Sig/Justino Route Start Time Stop Time Status Last Admin Dose Admin Patient Own Medication 15 mg DAILY PO 07/02/25 10:00 Ondansetron HCl 4 mg Q4HP PRN IV 07/02/25 04:45 Acetaminophen 650 mg Q6HP PRN PO 07/02/25 04:45 Laboratory Results Laboratory Tests 07/02/25 00:22 Chemistry Test 07/02/25 00:22 Albumin 4.9 g/dL (3.2-4.8) H Calcium Level 10.0 mg/dL (8.7-10.4) Total Protein 7.9 g/dL (5.7-8.2) LFT Test 07/02/25 00:22 Alanine Aminotransferase (ALT) 29 U/L (7-40) Alkaline Phosphatase 99 U/L (46-116) Aspartate Amino Transferase (AST) 44 U/L (13-40) H Total Bilirubin 1.4 mg/dL (0.2-1.0) H Urinalysis Test 07/02/25 02:30 Urine Color Colorless (Yellow) Urine Clarity Clear (Clear) Urine pH 5.5 (5.0-9.0) Urine Specific [place] 1.010 (1.001-1.035) Urine Protein Negative (Negative) Urine Ketones Negative (Negative) Urine Blood Negative /uL (Negative) Urine Nitrite Negative (Negative) Urine Bilirubin Negative (Negative) Urine Urobilinogen Normal mg/dL (Negative) Urine Leukocyte Esterase Negative /uL (Negative) Urine RBC 1 /hpf (0 - 3) Urine Microscopic WBC < 1 /HPF (0-3) Urine Squamous Epithelial Cells None seen /hpf (<5) Urine Bacteria None seen /hpf (None Seen) Urine Glucose Normal mg/dL (Normal) Assessment/Plan Assessment/Plan Questionable TIA Transient global amnesia Acute kidney injury Diabetes mellitus History of leukemia Plan Aspirin 81 mg daily Carotid Doppler Echocardiogram MRI is negative Neurology consult Full code Plan discussed with: Patient Date of Service: Jul 02, 2025 Billing Provider: SAM DAVIS MD Common Visit Codes: [id number] INP/OBS CARE(HIGH) Secondary Visit Codes: [id number] CARE PLAN 30 MINUTES SAM DAVIS MD Jul 02, 2025 15:33
--- NOTE | 2025-07-02 16:25 | DVH ---
Indication: weakness Technique: Real-time ultrasound images of the neck vessels with nina-scale, color and wave Doppler we re obtained. Comparison: US CAROTID DUPLX W COLOR DOP on DOS: 09/26/24 Findings: Mild bilateral atherosclerotic plaque. The following peak systolic velocities were recorded in cm/sec: Right internal carotid: 86 Right common carotid: 92 Right external carotid: 90 Right internal/common carotid ratio: 0.9 Left internal carotid: 97 Left common carotid: 103 Left external carotid: 99 Left internal/common carotid ratio: 1.0 Right vertebral artery: Patent with normal antegrade direction of flow. Left vertebral artery: Patent with normal antegrade direction of flow. Impression: No hemodynamically significant stenosis by velocity criteria.
[2025-07-02] MEDS: ACETAMINOPHEN 325 MG TAB PO PRN (17:27)
[2025-07-02 17:45] VITALS: PULSE 78; RESP 18
[2025-07-02 20:00] VITALS: PULSE 66; RESP 16; O2SAT 97
[2025-07-02 21:00] VITALS: BP 123/52; PULSE 66; RESP 18; TEMP 98.1; O2SAT 97
[2025-07-03] VITALS (8 sets, daily range): BP systolic 104–184; BP diastolic 45–84; PULSE 57–85; RESP 16–20; TEMP 97.5–99; O2SAT 92–98
[2025-07-03 06:32] LABS: Mean Corpuscular Hemoglobin 30.6 pg (28.0-32.0)
[2025-07-03 06:34] LABS: Hematocrit 33.6 % (41.0-53.0); Hemoglobin 11.7 g/dL (13.5-17.5); Mean Corpuscular Volume 88.0 fL (80.0-100.0)
[2025-07-03 06:42] LABS: Potassium 4.3 mmol/L (3.5-5.1); Sodium 141 mmol/L (136-145)
[2025-07-03 06:43] LABS: Anion Gap 8 (5-15); Calcium 9.6 mg/dL (8.7-10.4); Carbon Dioxide 25 mmol/L (20-31)
[2025-07-03 06:46] LABS: Chloride 108 mmol/L (98-107)
[2025-07-03 06:48] LABS: BUN/Creatinine Ratio 17.7 (10.0-20.0)
[2025-07-03 06:49] LABS: Magnesium 1.9 mg/dL (1.6-2.6)
[2025-07-03 06:50] LABS: Blood Urea Nitrogen 23 mg/dL (9-23); Glucose 106 mg/dL (74-106)
[2025-07-03 07:53] LABS: RBC Morphology Normal; Total Cells Counted 100.0 (100)
--- NOTE | 2025-07-03 11:24 | DVHPN2 ---
Subjective He is complaining of dry cough and congestion today Changes from previous H/P or p: Changes Objective Vitals Vital Signs Date Time Temp Pulse Resp B/P (MAP) Pulse Ox O2 Delivery O2 Flow Rate FiO2 07/03/25 09:00 97.6 57 20 127/47 (73) 94 97.6 07/03/25 08:00 Room Air* 0 21 General Appearance: Alert, Oriented X3, Cooperative Lungs: Clear to auscultation, Normal air movement Cardiovascular: Regular rate, Normal S1, Normal S2 Abdomen: Normal bowel sounds, Soft, No tenderness Extremities: No edema Medications Current Medications Medications Dose Ordered Sig/Justino Route Start Time Stop Time Status Last Admin Dose Admin Patient Own Medication 15 mg DAILY PO 07/02/25 10:00 Ondansetron HCl 4 mg Q4HP PRN IV 07/02/25 04:45 Acetaminophen 650 mg Q6HP PRN PO 07/02/25 04:45 07/03/25 00:10 650 MG Aspirin 81 mg DAILY PO 07/03/25 10:00 07/03/25 09:11 81 MG Laboratory Results Laboratory Tests 07/03/25 06:08 Chemistry Test 07/03/25 06:08 Calcium Level 9.6 mg/dL (8.7-10.4) Magnesium Level 1.9 mg/dL (1.6-2.6) Urinalysis Test 07/02/25 02:30 Urine Color Colorless (Yellow) Urine Clarity Clear (Clear) Urine pH 5.5 (5.0-9.0) Urine Specific [place] 1.010 (1.001-1.035) Urine Protein Negative (Negative) Urine Ketones Negative (Negative) Urine Blood Negative /uL (Negative) Urine Nitrite Negative (Negative) Urine Bilirubin Negative (Negative) Urine Urobilinogen Normal mg/dL (Negative) Urine Leukocyte Esterase Negative /uL (Negative) Urine RBC 1 /hpf (0 - 3) Urine Microscopic WBC < 1 /HPF (0-3) Urine Squamous Epithelial Cells None seen /hpf (<5) Urine Bacteria None seen /hpf (None Seen) Urine Glucose Normal mg/dL (Normal) Assessment/Plan Assessment/Plan Questionable TIA Transient global amnesia Acute kidney injury Diabetes mellitus History of leukemia Plan Aspirin 81 mg daily Carotid Doppler Echocardiogram MRI is negative Neurology consult Full code 07/03/2025: Cough and congestion: Check for influenza A and B and COVID Neurology consult Accu-Cheks Echocardiogram is pending Carotid Doppler was normal MRI is negative Neutropenia: White count is 1.8 Thrombocytopenia: Platelets 92 Plan discussed with: Patient My Orders Orders - SAM DAVIS MD Procedure Category Date Status Time Carotid Duplx W Color US 07/02/25 Resulted DOP 15:30 Aspirin Tablet PHA 07/03/25 In Process 10:00 * Neurology Consult CONS 07/02/25 Transmitted 15:32 Echo 2d Mode Cardiac US 07/03/25 Logged DOP 15:30 Date of Service: Jul 03, 2025 Billing Provider: SAM DAVIS MD Common Visit Codes: [id number] INP/OBS CARE(HIGH) SAM DAVIS MD Jul 03, 2025 11:24
[2025-07-03] MEDS: InsuLIN REG 1unit/0.01ml Soln (100units/ml) SC SCH (11:30)
[2025-07-03] MEDS ORDERED: DEXTROSE (50%) 50ML SYRG IV PRN (11:30)
[2025-07-03] MEDS: ACCU-CHEK COMFORT CURVE STRIP VI SCH (11:30)
[2025-07-03] MEDS: guaiFENesin-DM 100/10mg/5ml SYR PO PRN (15:09)
[2025-07-03 22:32] LABS: COVID19 ANTIGEN SOFIA FIA POSITIVE (NEGATIVE)
--- NOTE | 2025-07-03 22:58 | DVHINCON2 ---
Date of service: Jul 03, [address] Lawrence Reason for Consultation ALOC History of Present Illness Mr. Dhillon is a 75 years older left-handed gentleman with a history of hypertension, diabetes, leukemia, arthritis, he came to the [facility] on 07/01/25 with a chief complaint of confusion. At that time, he is alert and fully oriented, he provided the following history I saw him on 09/26/2024 for cognitive decline On 07/01/2025, when he was driving, he developed confusion, but he is able to using the landmark along the street to drive, he thinks he was confused for about 15 minutes. From 09/2023 - 09/25/2024, he had six spells of confusion event, three of them lasted for 20 30 minutes, another three was 2-3 hours, the patient did not lose his consciousness, but he was able to manipulate his vehicle if he was driving From 09/2023 to 09/2024 he had four spells of olfactory hallucination where he smell nonexisting old furniture or mould, there was no associated mental status changes, in the end of 05/2025, he had a spell of olfactory hallucination but he was not able to specify the symptoms From 09/2023 to 09/2024, he had four spells of gustatory hallucination where he tasted bitter in the mouth, the spell lasted for 1-2 days, without mental status change According to our record, the patient field Keppra 500 mg b.i.d. on 01/07/2025 Urinalysis, 07/02/2025: Unremarkable RPR, 09/26/2024: UDS, 09/25/2024: Negative, 07/02/2025: Negative Plasma alcohol, 09/25/2024: < 3 WBC/HB/PLT/MCV, 07/03/2025: 1.8/11.7/92/88 BUN/CR, 09/25/24: 22/1.54, 07/03/2025: 23/1 GFR, 07/03/2025: 57 TBI/AST/ALT/AP, 09/25/2024: 1.4/36/37/108, 07/02/2025: 1.4/44/29/99 HGB A1c, 09/26/2024: 5.8 Vitamin B12, 09/26/2024:350 Folic acid, 09/26/2024: 12.95 TSH, 09/26/2020 4:1446 Carotid Doppler, 09/26/2024: No hemodynamically significant stenosis within the carotid arteries CT head, 09/25/2024: No acute intracranial abnormality CT head, 07/02/2025: 1. No acute territorial infarct, intracranial hemorrhage, or mass effect. 2. Age-related involutional changes. Chronic microvascular changes. 3. If clinical symptoms persist, MRI may be beneficial in further evaluation. MRI head, 09/26/2024: 1. There is no acute intracranial process. 2. Chronic right maxillary sinus disease MRI headache, 07/02/2025: 1. No evidence of acute intracranial abnormality. 2. Nonacute findings as described above. 3. Right maxillary sinusitis. Past Medical History Hypertension, diabetes, cancer, arthritis. No history of , the head injury, intracranial infection, no history of stroke or seizure Past Surgical History Tonsillectomy Family History: Diabetes mellitus G8 MOTHER Hypertension G8 FATHER Family History Hypertension, diabetes, dementia (maternal grandfather, mother) Social History He is not a tobacco smoker, he denies a history of alcohol or recreational substance abuse Allergies: Coded Allergies: NO KNOWN ALLERGIES (Unverified , 11/13/21) Home Meds Reported Medications Upadacitinib (Rinvoq) 15 Mg Tab, 1 TAB PO DAILY 09/26/24 Hydroxychloroquine Sulfate (Hydroxychloroquine Sulfat) 200 Mg Tab, 200 MG PO DAILY for 30 Days, MG 11/15/21 Glimepiride (Glimepiride) 2 Mg Tab, 2 MG PO BID for 30 Days, MG 11/15/21 Current Medications Current Medications Medications (Trade) Dose Ordered Sig/Justino Route PRN Reason Start Time Stop Time Status Last Admin Aspirin 81 mg DAILY PO 07/03/25 10:00 07/03/25 09:11 Diagnostic Test (Pha) (Accu-Chek Comfort Curve T) 1 strip ACHS 07/03/25 11:30 07/03/25 22:07 Insulin Human Regular (InsuLIN R) ACHS SC 07/03/25 11:30 Dextrose 50 ml UD PRN IV Blood Sugar LESS THAN 60 07/03/25 11:30 Hydroxychloroquine Sulfate (Plaquenil Tablet) 200 mg DAILY PO 07/04/25 10:00 Guaifenesin/ Dextromethorphan (Robitussin-Dm Liquid) 10 ml Q4HP PRN PO FOR COUGH 07/03/25 11:30 07/03/25 15:09 Review of Systems As above, the other systems are negative Vital Signs Vital Signs Date Time Temp Pulse Resp B/P (MAP) Pulse Ox O2 Delivery O2 Flow Rate FiO2 07/03/25 20:00 59 20 95 Room Air* 0 21 07/03/25 17:00 98.6 104/45 (64) 98.6 Physical Exam GENERAL EXAM: General: the patient is well developed and nourished. No acute distress. HEENT: Normocephalic, neck is supple, no carotid bruits. No mass. RESPIRATORY: Normal respiratory effort with symmetrical lung expansion. Lungs clear to auscultation. CARDIOVASCULAR: Regular rate and rhythm with no murmurs. S1, S2. ABDOMEN: Soft, nontender, normal bowel sound NEUROLOGICAL: MENTAL STATUS: Awake and alert. Oriented to person, place, time and general circumstances. Able to give personal history. SPEECH, LANGUAGE, HIGHER CORTICAL FUNCTION: no aphasia or dysathria. CRANIAL NERVES: #2: Intact visual jarquin to confrontation. The optic discs were sharp. #3,4,6: Pupils are equal, round and reactive. EOMs full and conjugate. No nystagmus. #5: Facial sensation intact in all three divisions bilaterally. Mandibular strength intact. #7: Facial muscles symmetrical and strength intact. #8: Hearing grossly normal to voice. #9,10: Uvula and soft palate rise in the midline. Swallow and voice are normal. #11: Trapezius and sternomastoid strength intact bilaterally. #12: Tongue midline. No fasciculations or atrophy. SENSATION: Sensation to touch and pinprick is normal. MOTOR: Normal tone in the upper and lower extremity. Normal muscle bulk. No fasciculations. No abnormal movements or posturing. Muscle strength of the major groups in the upper extremities is 5/5. Muscle strength of the major groups in the lower extremities is 5/5. REFLEXES: Deep tendon reflexes normal and symmetrical. No pathological reflexes. CEREBELLAR/COORDINATION: Finger to nose, [id number] are normal bilaterally. GAIT/STATION: deferred. Labs/Diagnostic Data Labs Test 07/03/25 21:52 07/03/25 16:28 07/03/25 06:08 07/02/25 02:30 Range/Units Influenza Type A Antigen Negative Negative Influenza Type B Antigen Negative Negative SARS-CoV-2 Antigen (Rapid) Positive *A NEGATIVE POC Glucose 113 H 70-106 mg/dl White Blood Count 1.8 #*L 4.4-10.8 10^3/uL Red Blood Count 3.82 L 4.5-5.90 10^6/uL Hemoglobin 11.7 L 13.5-17.5 g/dL Hematocrit 33.6 #L 41.0-53.0 % Mean Corpuscular Volume 88.0 80.0-100.0 fL Mean Corpuscular Hemoglobin 30.6 28.0-32.0 pg Mean Corpuscular Hemoglobin Concent 34.7 32.0-36.0 g/dL Red Cell Distribution Width 15.3 H 11.8-14.3 % Platelet Count 92 L 140-450 10^3/uL Mean Platelet Volume 7.8 6.9-10.8 fL Neutrophils (%) (Auto) 37.0-80.0 % Lymphocytes (%) (Auto) 10.0-50.0 % Monocytes (%) (Auto) 0.0-12.0 % Basophils (%) (Auto) 0.0-2.0 % Neutrophils # (Auto) 1.6-8.6 10 ^3/uL Lymphocytes # (Auto) 0.4-5.4 10 ^3/uL Monocytes # (Auto) 0-1.3 10 ^3/uL Differential Total Cells Counted 100.0 100 Neutrophils % (Manual) 46 37.0-80.0 Band Neutrophils % (Manual) 0 Lymphocytes % (Manual) 31 10.0-50.0 Monocytes % (Manual) 22 H 0-12 Eosinophils % (Manual) 1 0-7 Basophils % (Manual) 0 0.0-2.0 Metamyelocytes % (manual) 0 Myelocytes % (Manual) 0 Promyelocytes % (Manual) 0 Blast Cells % (Manual) 0 Reactive Lymphocytes 0 Platelet Estimate Decreased Red Blood Cell Morphology Normal Sodium Level 141 136-145 mmol/L Potassium Level 4.3 3.5-5.1 mmol/L Chloride Level 108 H 98-107 mmol/L Carbon Dioxide Level 25 20-31 mmol/L Anion Gap 8 5-15 Blood Urea Nitrogen 23 9-23 mg/dL Creatinine 1.30 0.700-1.30 mg/dL Glomerular Filtration Rate Calc 57 >90 mL/min BUN/Creatinine Ratio 17.7 10.0-20.0 Serum Glucose 106 74-106 mg/dL Calcium Level 9.6 8.7-10.4 mg/dL Magnesium Level 1.9 1.6-2.6 mg/dL Urine Color Colorless Yellow Urine Clarity Clear Clear Urine pH 5.5 5.0-9.0 Urine Specific [place] 1.010 1.001-1.035 Urine Protein Negative Negative Urine Ketones Negative Negative Urine Blood Negative Negative /uL Urine Nitrite Negative Negative Urine Bilirubin Negative Negative Urine Urobilinogen Normal Negative mg/dL Urine Leukocyte Esterase Negative Negative /uL Urine RBC 1 0 - 3 /hpf Urine Microscopic WBC < 1 0-3 /HPF Urine Squamous Epithelial Cells None seen <5 /hpf Urine Bacteria None seen None Seen /hpf Urine Glucose Normal Normal mg/dL Urine Opiates Screen Neg NEGATIVE Urine Fentanyl Screen Neg NEGATIVE Urine Barbiturates Screen Neg NEGATIVE Urine Phencyclidine Screen Neg NEGATIVE Urine Amphetamines Screen Neg NEGATIVE Urine Benzodiazepines Screen Neg NEGATIVE Urine Cocaine Screen Neg NEGATIVE Urine Cannabinoids Screen Neg NEGATIVE Test 07/02/25 01:22 07/02/25 00:22 Range/Units Troponin I High Sensitivity 6 </=54 ng/L Eosinophils (%) (Auto) 1.9 0.0-7.0 % Eosinophils # (Auto) 0 0-0.8 10 ^3/uL Basophils # (Auto) 0 0-0.2 10 ^3/uL Nucleated Red Blood Cells 0.9 % Total Bilirubin 1.4 H 0.2-1.0 mg/dL Aspartate Amino Transferase (AST) 44 H 13-40 U/L Alanine Aminotransferase (ALT) 29 7-40 U/L Alkaline Phosphatase 99 46-116 U/L Total Protein 7.9 5.7-8.2 g/dL Albumin 4.9 H 3.2-4.8 g/dL Assessment Confusional spells ? Partial complex seizure ? Transient global amnesia Olfactory hallucination ? Partial simple seizure Gustatory hallucination ? Partial simple seizure Family history of dementia Plan/Recommendation Monitoring Supportive treatments Telemetry EEG A trial of Keppra 500 mg b.i.d. Mentally and physically active He has been advised not drive and he is cleared DMV report in the chart Progress: Poor This medical document was created using an electronic medical record system with [employer] dictation system. Although this document has been carefully reviewed, there may still be some phonetic and typographical errors. These areas are purely typographical due to imperfections of the software programs, and do not reflect any compromise in the patient's medical care. Plan discussed with: Patient, Other VANDANA JOHNSON MD Jul 03, 2025 22:58
[2025-07-04] VITALS (8 sets, daily range): BP systolic 99–150; BP diastolic 50–73; PULSE 46–74; RESP 15–20; TEMP 97.5–101.2; O2SAT 95–99
[2025-07-04] MEDS: levETIRAcetam 500 MG TAB PO ONE (00:37)
[2025-07-04 06:13] LABS: Hematocrit 32.9 % (41.0-53.0); Hemoglobin 11.6 g/dL (13.5-17.5); Mean Corpuscular Hemoglobin 30.8 pg (28.0-32.0); Mean Corpuscular Volume 87.4 fL (80.0-100.0)
[2025-07-04 06:36] LABS: Alanine Aminotransferase 18 U/L (7-40); Albumin 3.7 g/dL (3.2-4.8); Alkaline Phosphatase 80 U/L (46-116); Anion Gap 7 (5-15); BUN/Creatinine Ratio 16.0 (10.0-20.0); Blood Urea Nitrogen 23 mg/dL (9-23); Calcium 9.6 mg/dL (8.7-10.4); Carbon Dioxide 25 mmol/L (20-31); Chloride 106 mmol/L (98-107); Magnesium 2.0 mg/dL (1.6-2.6); Potassium 4.1 mmol/L (3.5-5.1); Sodium 138 mmol/L (136-145); Total Cells Counted 100.0 (100); Total Protein 6.2 g/dL (5.7-8.2)
[2025-07-04 06:38] LABS: Bilirubin, Total 1.4 mg/dL (0.2-1.0); Glucose 168 mg/dL (74-106)
[2025-07-04] MEDS: levETIRAcetam 500 MG TAB PO SCH (08:51)
--- NOTE | 2025-07-04 10:32 | DVHPN2 ---
Subjective Better Has COVID+ Changes from previous H/P or p: Changes Objective Vitals Vital Signs Date Time Temp Pulse Resp B/P (MAP) Pulse Ox O2 Delivery O2 Flow Rate FiO2 07/04/25 09:00 98.5 55 15 99/53 (68) 98 98.5 07/03/25 20:00 Room Air* 0 21 Intake/Output Intake and Output 07/04/25 07:00 Intake Total 1080 ml Output Total 1000 ml Balance 80 ml Intake Oral 1080 ml Output Urine Total 1000 ml # Voids 3 General Appearance: Alert, Oriented X3, Cooperative Lungs: Clear to auscultation, Normal air movement Cardiovascular: Regular rate, Normal S1, Normal S2 Abdomen: Normal bowel sounds, Soft, No tenderness Extremities: No edema Medications Current Medications Medications Dose Ordered Sig/Justino Route Start Time Stop Time Status Last Admin Dose Admin Patient Own Medication 15 mg DAILY PO 07/02/25 10:00 Ondansetron HCl 4 mg Q4HP PRN IV 07/02/25 04:45 Acetaminophen 650 mg Q6HP PRN PO 07/02/25 04:45 07/04/25 05:08 650 MG Aspirin 81 mg DAILY PO 07/03/25 10:00 07/04/25 08:51 81 MG Diagnostic Test (Pha) 1 strip ACHS 07/03/25 11:30 07/04/25 06:32 1 STRIP Insulin Human Regular ACHS SC 07/03/25 11:30 Dextrose 50 ml UD PRN IV 07/03/25 11:30 Hydroxychloroquine Sulfate 200 mg DAILY PO 07/04/25 10:00 07/04/25 08:51 200 MG Guaifenesin/ Dextromethorphan 10 ml Q4HP PRN PO 07/03/25 11:30 07/03/25 15:09 10 ML Levetiracetam 500 mg BID PO 07/04/25 10:00 07/04/25 08:51 500 MG Laboratory Results Laboratory Tests 07/04/25 05:49 Chemistry Test 07/04/25 05:49 Albumin 3.7 g/dL (3.2-4.8) Calcium Level 9.6 mg/dL (8.7-10.4) Magnesium Level 2.0 mg/dL (1.6-2.6) Total Protein 6.2 g/dL (5.7-8.2) LFT Test 07/04/25 05:49 Alanine Aminotransferase (ALT) 18 U/L (7-40) Alkaline Phosphatase 80 U/L (46-116) Aspartate Amino Transferase (AST) 30 U/L (13-40) Total Bilirubin 1.4 mg/dL (0.2-1.0) H Urinalysis Test 07/02/25 02:30 Urine Color Colorless (Yellow) Urine Clarity Clear (Clear) Urine pH 5.5 (5.0-9.0) Urine Specific [place] 1.010 (1.001-1.035) Urine Protein Negative (Negative) Urine Ketones Negative (Negative) Urine Blood Negative /uL (Negative) Urine Nitrite Negative (Negative) Urine Bilirubin Negative (Negative) Urine Urobilinogen Normal mg/dL (Negative) Urine Leukocyte Esterase Negative /uL (Negative) Urine RBC 1 /hpf (0 - 3) Urine Microscopic WBC < 1 /HPF (0-3) Urine Squamous Epithelial Cells None seen /hpf (<5) Urine Bacteria None seen /hpf (None Seen) Urine Glucose Normal mg/dL (Normal) Assessment/Plan Assessment/Plan Questionable TIA Transient global amnesia Acute kidney injury Diabetes mellitus History of leukemia Plan Aspirin 81 mg daily Carotid Doppler Echocardiogram MRI is negative Neurology consult Full code 07/03/2025: Cough and congestion: Check for influenza A and B and COVID Neurology consult Accu-Cheks Echocardiogram is pending Carotid Doppler was normal MRI is negative Neutropenia: White count is 1.8 Thrombocytopenia: Platelets 92 07/04/2025: COVID positive: Start vitamins D and C and zinc GABRIELA: Start IV fluids Thrombocytopenia Neutropenia Neutropenic precautions Monitor closely Plan discussed with: Patient My Orders Orders - SAM DAVIS MD Procedure Category Date Status Time Glucose Blood PHA 07/03/25 In Process (Accu-Chek Comfort 11:30 Insulin R (Human) PHA 07/03/25 In Process (Insulin R) 11:30 Dextrose 50% Syringe PHA 07/03/25 In Process 11:30 Hydroxychloroquine PHA 07/04/25 In Process Tablet (Plaquenil Tab 10:00 Guaifenesin-Dextromet PHA 07/03/25 In Process Liquid (Robitussin 11:30 Date of Service: Jul 04, 2025 Billing Provider: SAM DAVIS MD Common Visit Codes: [id number] INP/OBS CARE(HIGH) SAM DAVIS MD Jul 04, 2025 10:32
[2025-07-04] MEDS: CHOLECALCIFEROL (VITD3) 1,000UNIT=25mCg TAB PO ONE (10:58)
[2025-07-04] MEDS: ASCORBIC ACID 500 MG TAB PO ONE (10:59)
[2025-07-04] MEDS: ZINC SULFATE 220mg CAP or TAB PO ONE (10:59)
[2025-07-04] MEDS: SODIUM CHLORIDE 0.9% 1,000 ML IV SCH (10:59)
[2025-07-04] MEDS: ASCORBIC ACID 500 MG TAB PO SCH (21:34)
[2025-07-05 05:00] VITALS: BP 133/64; PULSE 69; RESP 18; TEMP 98.1; O2SAT 96
[2025-07-05 08:00] VITALS: PULSE 62; RESP 18
[2025-07-05 09:06] VITALS: BP 106/53; PULSE 53; RESP 14; TEMP 98.6; O2SAT 97
[2025-07-05] MEDS: CHOLECALCIFEROL (VITD3) 1,000UNIT=25mCg TAB PO SCH (09:33)
[2025-07-05] MEDS: ZINC SULFATE 220mg CAP or TAB PO SCH (09:34)
--- NOTE | 2025-07-05 11:04 | DVHPN2 ---
Subjective No new Problems Changes from previous H/P or p: Changes Objective Vitals Vital Signs Date Time Temp Pulse Resp B/P (MAP) Pulse Ox O2 Delivery O2 Flow Rate FiO2 07/05/25 09:06 98.6 53 14 106/53 (70) 97 98.6 07/05/25 08:00 Room Air* 0 21 Intake/Output Intake and Output 07/05/25 07:00 Intake Total 2200 ml Output Total 753 ml Balance 1447 ml Intake Oral 2200 ml Output Urine Total 753 ml General Appearance: Alert, Oriented X3, Cooperative Lungs: Clear to auscultation, Normal air movement Cardiovascular: Regular rate, Normal S1, Normal S2 Abdomen: Normal bowel sounds, Soft, No tenderness Extremities: No edema Medications Current Medications Medications Dose Ordered Sig/Justino Route Start Time Stop Time Status Last Admin Dose Admin Patient Own Medication 15 mg DAILY PO 07/02/25 10:00 Ondansetron HCl 4 mg Q4HP PRN IV 07/02/25 04:45 Acetaminophen 650 mg Q6HP PRN PO 07/02/25 04:45 07/04/25 05:08 650 MG Aspirin 81 mg DAILY PO 07/03/25 10:00 07/04/25 08:51 81 MG Diagnostic Test (Pha) 1 strip ACHS 07/03/25 11:30 07/05/25 06:19 1 STRIP Insulin Human Regular ACHS SC 07/03/25 11:30 07/05/25 06:19 4 UNITS Dextrose 50 ml UD PRN IV 07/03/25 11:30 Hydroxychloroquine Sulfate 200 mg DAILY PO 07/04/25 10:00 07/05/25 09:33 200 MG Guaifenesin/ Dextromethorphan 10 ml Q4HP PRN PO 07/03/25 11:30 07/04/25 15:28 10 ML Levetiracetam 500 mg BID PO 07/04/25 10:00 07/05/25 09:34 500 MG Zinc Sulfate 220 mg DAILY PO 07/05/25 10:00 07/05/25 09:34 220 MG Ascorbic Acid 500 mg BID PO 07/04/25 22:00 07/05/25 09:34 500 MG Cholecalciferol 2,000 unit DAILY PO 07/05/25 10:00 07/05/25 09:33 2,000 UNIT Sodium Chloride 1,000 ml @ 75 mls/hr [id number] IV 07/04/25 10:30 07/04/25 10:59 75 MLS/HR Laboratory Results Laboratory Tests 07/04/25 05:49 Urinalysis Test 07/02/25 02:30 Urine Color Colorless (Yellow) Urine Clarity Clear (Clear) Urine pH 5.5 (5.0-9.0) Urine Specific [place] 1.010 (1.001-1.035) Urine Protein Negative (Negative) Urine Ketones Negative (Negative) Urine Blood Negative /uL (Negative) Urine Nitrite Negative (Negative) Urine Bilirubin Negative (Negative) Urine Urobilinogen Normal mg/dL (Negative) Urine Leukocyte Esterase Negative /uL (Negative) Urine RBC 1 /hpf (0 - 3) Urine Microscopic WBC < 1 /HPF (0-3) Urine Squamous Epithelial Cells None seen /hpf (<5) Urine Bacteria None seen /hpf (None Seen) Urine Glucose Normal mg/dL (Normal) Assessment/Plan Assessment/Plan Questionable TIA Transient global amnesia Acute kidney injury Diabetes mellitus History of leukemia Plan Aspirin 81 mg daily Carotid Doppler Echocardiogram MRI is negative Neurology consult Full code 07/03/2025: Cough and congestion: Check for influenza A and B and COVID Neurology consult Accu-Cheks Echocardiogram is pending Carotid Doppler was normal MRI is negative Neutropenia: White count is 1.8 Thrombocytopenia: Platelets 92 07/04/2025: COVID positive: Start vitamins D and C and zinc GABRIELA: Start IV fluids Thrombocytopenia Neutropenia Neutropenic precautions Monitor closely [id number]: GABRIELA: Continue IV fluids COVID pneumonia: Continue multivitamins vitamin-D and zinc and vitamin-C Neutropenia: Hold hydroxychloroquine for now For rheumatoid arthritis: The patient takes hydroxychloroquine at home however because he is neutropenic now we will hold it for now Thrombocytopenia Monitor closely Plan discussed with: Patient My Orders Orders - SAM DAVIS MD Procedure Category Date Status Time Complete Blood Count LAB 07/05/25 Logged 09:06 Basic Metabolic Panel LAB 07/05/25 Logged 09:06 Magnesium LAB 07/05/25 Logged 09:06 Date of Service: Jul 05, 2025 Billing Provider: SAM DAVIS MD Common Visit Codes: [id number] INP/OBS CARE(HIGH) SAM DAVIS MD Jul 05, 2025 11:04
[2025-07-05 11:22] LABS: Hemoglobin 12.1 g/dL (13.5-17.5); Mean Corpuscular Volume 88.0 fL (80.0-100.0)
[2025-07-05 11:27] LABS: Potassium 4.0 mmol/L (3.5-5.1); Sodium 140 mmol/L (136-145)
[2025-07-05 11:28] LABS: Anion Gap 8 (5-15); Calcium 9.6 mg/dL (8.7-10.4); Carbon Dioxide 25 mmol/L (20-31)
[2025-07-05 11:29] LABS: Hematocrit 34.4 % (41.0-53.0); Mean Corpuscular Hemoglobin 30.8 pg (28.0-32.0)
[2025-07-05 11:31] LABS: Chloride 107 mmol/L (98-107)
[2025-07-05 11:33] LABS: BUN/Creatinine Ratio 17.2 (10.0-20.0); Magnesium 2.0 mg/dL (1.6-2.6)
[2025-07-05 11:38] LABS: Blood Urea Nitrogen 26 mg/dL (9-23); Glucose 146 mg/dL (74-106)
[2025-07-05 11:47] LABS: Total Cells Counted 100.0 (100)
[2025-07-05 13:00] VITALS: BP 124/59; PULSE 53; RESP 14; TEMP 98.5; O2SAT 92
[2025-07-05 17:04] VITALS: BP 131/76; PULSE 61; RESP 14; TEMP 98.3; O2SAT 95
--- NOTE | 2025-07-05 20:34 | DVHPN2 ---
Progress Note - Dictate Date Seen: Jul 05, 2025 Medical Necessity Reason Pt with a Central, PICC or Fol: No Subjective Mr. Dhillon is a 75 years older left-handed gentleman with a history of hypertension, diabetes, leukemia, arthritis, he came to the [facility] on 07/01/25 with a chief complaint of confusion. I saw him on 09/26/2024 for cognitive decline I have seen and examined the patient, discussed with his nurse, he is alert and fully oriented, no seizure activity He remembers taking Keppra, but he did not has a good compliance to the treatment He was worried about his driving restriction, SARS-CoV-2 antigen, 07/03/2025: Positive Urinalysis, 07/02/2025: Unremarkable RPR, 09/26/2024: UDS, 09/25/2024: Negative, 07/02/2025: Negative Plasma alcohol, 09/25/2024: < 3 WBC/HB/PLT/MCV, 07/03/2025: 1.8/11.7/92/88, 07/05/2025: 1.5/12.1/101/88 BUN/CR, 09/25/24: 22/1.54, 07/03/2025: 23/1 GFR, 07/03/2025: 57 TBI/AST/ALT/AP, 09/25/2024: 1.4/36/37/108, 07/02/2025: 1.4/44/29/99 HGB A1c, 09/26/2024: 5.8 Vitamin B12, 09/26/2024:350 Folic acid, 09/26/2024: 12.95 TSH, 09/26/2020 4:1446 Carotid Doppler, 09/26/2024: No hemodynamically significant stenosis within the carotid arteries CT head, 09/25/2024: No acute intracranial abnormality CT head, 07/02/2025: 1. No acute territorial infarct, intracranial hemorrhage, or mass effect. 2. Age-related involutional changes. Chronic microvascular changes. 3. If clinical symptoms persist, MRI may be beneficial in further evaluation. MRI head, 09/26/2024: 1. There is no acute intracranial process. 2. Chronic right maxillary sinus disease MRI head, 07/02/2025: 1. No evidence of acute intracranial abnormality. 2. Nonacute findings as described above. 3. Right maxillary sinusitis. vital signs Vital Sign Date Time Temp Pulse Resp B/P (MAP) Pulse Ox O2 Delivery O2 Flow Rate FiO2 07/05/25 17:04 98.3 61 14 131/76 (94) 95 98.3 07/05/25 08:00 Room Air* 0 21 Total Intake and Output 07/04/25 07/04/25 07/05/25 15:00 23:00 07:00 Intake Total 800 ml 1400 ml Output Total 750 ml 3 ml Balance 50 ml 1397 ml medications Current Medications Medications Dose Ordered Sig/Justino Route Start Time Stop Time Status Last Admin Dose Admin Patient Own Medication 15 mg DAILY PO 07/02/25 10:00 Ondansetron HCl 4 mg Q4HP PRN IV 07/02/25 04:45 Acetaminophen 650 mg Q6HP PRN PO 07/02/25 04:45 07/04/25 05:08 650 MG Aspirin 81 mg DAILY PO 07/03/25 10:00 07/04/25 08:51 81 MG Diagnostic Test (Pha) 1 strip ACHS 07/03/25 11:30 07/05/25 17:03 1 STRIP Insulin Human Regular ACHS SC 07/03/25 11:30 07/05/25 11:30 2 UNITS Dextrose 50 ml UD PRN IV 07/03/25 11:30 Guaifenesin/ Dextromethorphan 10 ml Q4HP PRN PO 07/03/25 11:30 07/04/25 15:28 10 ML Levetiracetam 500 mg BID PO 07/04/25 10:00 07/05/25 09:34 500 MG Zinc Sulfate 220 mg DAILY PO 07/05/25 10:00 07/05/25 09:34 220 MG Ascorbic Acid 500 mg BID PO 07/04/25 22:00 07/05/25 09:34 500 MG Cholecalciferol 2,000 unit DAILY PO 07/05/25 10:00 07/05/25 09:33 2,000 UNIT Sodium Chloride 1,000 ml @ 75 mls/hr [id number] IV 07/04/25 10:30 07/04/25 10:59 75 MLS/HR objective General: the patient is well developed and nourished. No acute distress. MENTAL STATUS: Subjective SPEECH, LANGUAGE, HIGHER CORTICAL FUNCTION: no aphasia or dysathria. CRANIAL NERVES: Pupils are equal, round and reactive. EOMs full and conjugate. No nystagmus. Facial sensation intact in all three divisions bilaterally. Mandibular strength intact. Facial muscles symmetrical and strength intact. Tongue midline. No fasciculations or atrophy. SENSATION: Sensation to touch and pinprick is normal. MOTOR: Normal tone in the upper and lower extremity. Normal muscle bulk. No fasciculations. No abnormal movements or posturing. Muscle strength of the major groups in the extremities is 5/5. REFLEXES: Deep tendon reflexes normal and symmetrical. No pathological reflexes. CEREBELLAR/COORDINATION: Finger to nose, eczs-[id number] are normal bilaterally. GAIT/STATION: deferred laboratory and microbiology Laboratory Tests 07/05/25 10:13 Test 07/05/25 10:13 Range/Units Serum Glucose 146 H 74-106 mg/dL Problem List Confusional spells Partial complex seizure Transient global amnesia Olfactory hallucination Partial simple seizure Gustatory hallucination Partial simple seizure Family history of dementia COVID-19 Assessment/Plan Monitoring Supportive treatments Telemetry Aerosol isolation EEG Keppra 500 mg b.i.d. Vitamin-D Zinc He has been advised not drive and he is cleared DMV report in the chart Social service RE: Living condition This medical document was created using an electronic medical record system with [employer] dictation system. Although this document has been carefully reviewed, there may still be some phonetic and typographical errors. These areas are purely typographical due to imperfections of the software programs, and do not reflect any compromise in the patient's medical care. Prognosis poor Dietary Evaluation Review Comments: 1) Continue 60g CCHO diet 2) Encourage optimal PO intake 3) Follow-up with hematology/oncology 4) Continue to monitor I&O, labs, and skin integrity Expected Outcomes/Goals: 1) appetite and labs to improve 2) f/u in 3-5 days Plan discussed with: Patient, Other Total Time (mins): 35 VANDANA JOHNSON MD Jul 05, 2025 20:34
[2025-07-05 21:00] VITALS: BP 124/47; PULSE 66; RESP 17; TEMP 97.9; O2SAT 95
--- NOTE | 2025-07-06 00:50 | DVHEEG2 ---
Neurology EEG Procedural Note Procedural Note EXAM DATE: 07/05/25 REFERRING DOCTOR: Dr. Johnson TECHNIQUE: Eighteen channels of EEG, 2 channels of EOG, and 1 channel of EKG were recorded using the International 10/20 system. CLINICAL DATA: The patient was referred for an EEG evaluation for the evidence of seizure disorder. MEDICATIONS: See the chart BACKGROUND ACTIVITY: While the patient was awake, the background activity consisted of fairly regulated 9-10 Hz rhythmic waveforms, symmetrically distributed over both posterior quadrants and was reactive to eye opening. ACTIVATION: Hyperventilation: Not done Photic Stimulation: Not done Sleep: Stage I & II two IMPRESSION: This is a normal EEG. No focal, lateralized, or epileptiform features are noted. If clinically indicated to rule out a seizure disorder, recommend repeat EEG with sleep deprivation. The EKG channel showed a regular heart rate of 64/min. [place] [address] VANDANA JOHNSON MD Jul 06, 2025 00:50
[2025-07-06 01:00] VITALS: BP 150/74; PULSE 71; RESP 16; TEMP 98; O2SAT 100
[2025-07-06 05:00] VITALS: BP 134/69; PULSE 72; RESP 16; TEMP 97.9; O2SAT 98
[2025-07-06 08:00] VITALS: PULSE 81; RESP 18
[2025-07-06 08:39] LABS: Hematocrit 34.8 % (41.0-53.0); Hemoglobin 12.1 g/dL (13.5-17.5); Mean Corpuscular Hemoglobin 30.4 pg (28.0-32.0); Mean Corpuscular Volume 87.2 fL (80.0-100.0)
[2025-07-06 08:50] LABS: Alanine Aminotransferase 25 U/L (7-40); Albumin 3.9 g/dL (3.2-4.8); Alkaline Phosphatase 94 U/L (46-116); Anion Gap 10 (5-15); BUN/Creatinine Ratio 13.4 (10.0-20.0); Blood Urea Nitrogen 19 mg/dL (9-23); Calcium 9.8 mg/dL (8.7-10.4); Carbon Dioxide 23 mmol/L (20-31); Magnesium 2.0 mg/dL (1.6-2.6); Potassium 4.5 mmol/L (3.5-5.1); Sodium 141 mmol/L (136-145); Total Protein 6.7 g/dL (5.7-8.2)
[2025-07-06 08:55] LABS: Bilirubin, Total 1.7 mg/dL (0.2-1.0); Chloride 108 mmol/L (98-107); Glucose 115 mg/dL (74-106)
[2025-07-06] MEDS ORDERED: ZINC220C10 PO (08:57)
[2025-07-06] MEDS ORDERED: CALC-10 PO (08:57)
[2025-07-06] MEDS ORDERED: KEP500T PO (08:57)
[2025-07-06] MEDS ORDERED: ASCO500T11 PO (08:57)
[2025-07-06 09:00] VITALS: BP 133/59; PULSE 70; RESP 19; TEMP 98.3; O2SAT 96
--- NOTE | 2025-07-06 09:02 | DVHDS2 ---
Discharge Summary Date of Admission Jul 02, 2025 at 04:40 Date of Discharge: Jul 06, 2025 Labs/Diagnostic Data: Laboratory Results Test 07/06/25 07:58 07/06/25 06:22 07/03/25 21:52 07/03/25 06:08 White Blood Count 1.7 10^3/uL (4.4-10.8) Red Blood Count 3.99 10^6/uL (4.5-5.90) Hemoglobin 12.1 g/dL (13.5-17.5) Hematocrit 34.8 % (41.0-53.0) Mean Corpuscular Volume 87.2 fL (80.0-100.0) Mean Corpuscular Hemoglobin 30.4 pg (28.0-32.0) Mean Corpuscular Hemoglobin Concent 34.8 g/dL (32.0-36.0) Red Cell Distribution Width 15.5 % (11.8-14.3) Platelet Count 94 10^3/uL (140-450) Mean Platelet Volume 8.4 fL (6.9-10.8) Neutrophils (%) (Auto) % (37.0-80.0) Lymphocytes (%) (Auto) % (10.0-50.0) Monocytes (%) (Auto) % (0.0-12.0) Basophils (%) (Auto) % (0.0-2.0) Neutrophils # (Auto) 10 ^3/uL (1.6-8.6) Lymphocytes # (Auto) 10 ^3/uL (0.4-5.4) Monocytes # (Auto) 10 ^3/uL (0-1.3) Sodium Level 141 mmol/L (136-145) Potassium Level 4.5 mmol/L (3.5-5.1) Chloride Level 108 mmol/L (98-107) Carbon Dioxide Level 23 mmol/L (20-31) Anion Gap 10 (5-15) Blood Urea Nitrogen 19 mg/dL (9-23) Creatinine 1.42 mg/dL (0.700-1.30) Glomerular Filtration Rate Calc 51 mL/min (>90) BUN/Creatinine Ratio 13.4 (10.0-20.0) Serum Glucose 115 mg/dL (74-106) Calcium Level 9.8 mg/dL (8.7-10.4) Magnesium Level 2.0 mg/dL (1.6-2.6) Total Bilirubin 1.7 mg/dL (0.2-1.0) Aspartate Amino Transferase (AST) 37 U/L (13-40) Alanine Aminotransferase (ALT) 25 U/L (7-40) Alkaline Phosphatase 94 U/L (46-116) Total Protein 6.7 g/dL (5.7-8.2) Albumin 3.9 g/dL (3.2-4.8) POC Glucose 126 mg/dl (70-106) Influenza Type A Antigen Negative (Negative) Influenza Type B Antigen Negative (Negative) SARS-CoV-2 Antigen (Rapid) Positive (NEGATIVE) Red Blood Cell Morphology Normal Test 07/02/25 02:30 07/02/25 01:22 07/02/25 00:22 Urine Color Colorless (Yellow) Urine Clarity Clear (Clear) Urine pH 5.5 (5.0-9.0) Urine Specific [place] 1.010 (1.001-1.035) Urine Protein Negative (Negative) Urine Ketones Negative (Negative) Urine Blood Negative /uL (Negative) Urine Nitrite Negative (Negative) Urine Bilirubin Negative (Negative) Urine Urobilinogen Normal mg/dL (Negative) Urine Leukocyte Esterase Negative /uL (Negative) Urine RBC 1 /hpf (0 - 3) Urine Microscopic WBC < 1 /HPF (0-3) Urine Squamous Epithelial Cells None seen /hpf (<5) Urine Bacteria None seen /hpf (None Seen) Urine Glucose Normal mg/dL (Normal) Urine Opiates Screen Neg (NEGATIVE) Urine Fentanyl Screen Neg (NEGATIVE) Urine Barbiturates Screen Neg (NEGATIVE) Urine Phencyclidine Screen Neg (NEGATIVE) Urine Amphetamines Screen Neg (NEGATIVE) Urine Benzodiazepines Screen Neg (NEGATIVE) Urine Cocaine Screen Neg (NEGATIVE) Urine Cannabinoids Screen Neg (NEGATIVE) Troponin I High Sensitivity 6 ng/L (</=54) Eosinophils (%) (Auto) 1.9 % (0.0-7.0) Eosinophils # (Auto) 0 10 ^3/uL (0-0.8) Basophils # (Auto) 0 10 ^3/uL (0-0.2) Nucleated Red Blood Cells 0.9 % Other Laboratory Tests 07/06/25 07:58 Brief Hx & Hospital Course: Final diagnoses: Acute kidney injury Diabetes mellitus History of leukemia Confusional spells Partial complex seizure Transient global amnesia Olfactory hallucination Partial simple seizure Gustatory hallucination Partial simple seizure Family history of dementia COVID-19 Neutropenia and thrombocytopenia 75-year-old male who was admitted for altered level of consciousness and possible seizures He was seen by Neurology and was diagnosed with possible partial complex seizures Workup included a CT scan of the head and MRI of the brain and carotid Doppler which were all negative EEG was also negative Neurology recommended Keppra The patient is doing well now however he developed some cough in the hospital and his COVID came back positive He was given IV fluids for acute kidney injury and dehydration and was given multivitamins and he is doing better now He was also neutropenic with a white count of 1.5, today is 1.7 He also had thrombocytopenia Overall he is doing better and he would like to go home He was seen by Neurology and was started on Keppra which will be sent to his pharmacy No driving for now until he is cleared Follow up with his primary care physician as soon as possible Condition at Discharge: Stable Final Diagnosis/Problems List Acute kidney injury Diabetes mellitus History of leukemia Confusional spells Partial complex seizure Transient global amnesia Olfactory hallucination Partial simple seizure Gustatory hallucination Partial simple seizure Family history of dementia COVID-19 Pancytopenia Discharge Disposition: Home SNF Discharge Will this Physician continue t: No Discharge Instruct/Medications Diet: Cardiac 2g Na,low cholest Activity: No Restrictions, As Tolerated Follow Up/Referral: PCP SUSAN Medications: Zinc Vitamin-C Vitamin-D Keppra 500 mg twice a day Scheduled Ascorbic Acid (Vitamin C Tablet), 500 MG PO BID Cholecalciferol (Vitamin D-[address]), 2,000 UNIT PO DAILY Glimepiride (Glimepiride), 2 MG PO BID, (Reported) Hydroxychloroquine Sulfate (Hydroxychloroquine Sulfat), 200 MG PO DAILY, (Reported) Levetiracetam (Keppra Tablet), 500 MG PO BID Upadacitinib (Rinvoq), 1 TAB PO DAILY, (Reported) Zinc Sulfate (Zinc), 220 MG PO DAILY Discharge Statement: "Patient was advised to return to the ER or call 911 if any headaches, dizziness, shortness of breath, chest pain, abdominal pain, bleeding, fevers, or worsening of medical condition. Patient was counseled about treatment plan, medications, possible side effects, patientverbalized understanding. All questions were answered to the best of my ability. This discharge took greater then 30 minutes in planning, reviewing documentation, counseling the patient, and discussing with other team members." ASSESSMENT ASSESSMENT Assessment Acute kidney injury Diabetes mellitus History of leukemia Confusional spells Partial complex seizure Transient global amnesia Olfactory hallucination Partial simple seizure Gustatory hallucination Partial simple seizure Family history of dementia COVID-19 Pancytopenia Date of Service: Jul 06, 2025 Billing Provider: SAM DAVIS MD Common Visit Codes: 99831-EJJ/OBS DISCH DAY >30min SAM DAVIS MD Jul 06, 2025 09:02
[2025-07-06 11:27] LABS: Total Cells Counted 100.0 (100)
[2025-07-06 13:00] VITALS: BP 115/61; PULSE 74; RESP 20; TEMP 98.1; O2SAT 97
--- NOTE | 2025-07-07 13:22 | DVHSR ---
APPROVED REPORT EXAM: Two-dimensional and M-mode echocardiogram with Doppler and color Doppler. Blood Pressure: 121/56 mmHg INDICATION weakness RISK FACTORS Height: 69, Weight: 151 DIMENSIONS LVDd (3.8-5.7cm)LA (2D)4.0 (1.9-4.0cm)Aortic Root3.6 (2.0-3.7cm) LVDs (2.5-4.0cm)LA (MM) (1.9-4.0cm)Aortic Cusp Exc1.6 (1.5-2.0cm) EF (%) 56.0 (55-70%)Rt. Atrium3.9 (1.9-4.0cm)Asc. Aorta cm Mitral Valve MitralMitral Stenosis E wave0.82m/sMV Mean GR.mmHg A wave1.07m/sMV Peak GR.mmHg E/A ratio0.82D MVAcm2 DECEL [id number] 1/2 [id number] IVRTmsDop MVA3.74cm2 Aortic Valve Aortic ValveAortic Stenosis V11.28m/Kvng Mean GR.4mmHg V21.43m/Kvng Peak GR.8mmHg LVOT Diameter2.2 (1.8-2.4cm)Doppler AVA3.40cm2 Pulmonic Valve V21.12m/s Tricuspid Valve TR Velocity2.24m/s [id number] Conclusion Technically good study. Sinus rhythm. Off axis views. Aortic root and left atrial enlargement of mild degree. Valves appear to be structurally normal. Mild mitral annular calcification. EF of 60% with normal RV function. Unremarkable Doppler. No pericardial effusion masses or vegetations discernible.
== END 2025-07-06 13:40 | disposition home or self-care (01) | DRG 100 ==
LOC: ER 23:01 → OVERFLOW 07-02 04:40 → CENTRAL 07-02 18:04 → TELE-CENTR 07-06 00:27
PROVIDERS: ADMIT Internal Medicine Geriatric Medicine; ATTEND Internal Medicine Geriatric Medicine
DX: G40.209 Localization-related (focal) (partial) symptomatic epilepsy and epileptic syndromes with complex partial seizures, not intractable, without status epilepticus (principal); U07.1 COVID-19; N17.9 Acute kidney failure, unspecified; R44.2 Other hallucinations; D61.818 Other pancytopenia; F05 Delirium due to known physiological condition; E11.9 Type 2 diabetes mellitus without complications; E86.0 Dehydration; I10 Essential (primary) hypertension; Z85.6 Personal history of leukemia; Z82.49 Family history of ischemic heart disease and other diseases of the circulatory system; Z83.3 Family history of diabetes mellitus; Z81.8 Family history of other mental and behavioral disorders; Z79.899 Other long term (current) drug therapy
CPT/HCPCS: 36415; 70450; 70551; 71045; 80048; 80053; 80307; 81001; 82962; 83735; 84484; 85007; 85025; 85027; 87426; 87804; 93306; 93886; 95819; G0378; J1815

== ENCOUNTER 2025-08-30 20:08 | Inpatient (IN) | payer OTHER ==
[~2025-08-30] VITALS: Ht 175.3 cm; Wt 72.5 kg
[~2025-08-30 20:08] MED LIST changes: +ASCO500T11 PO; +CALC-10 PO; +KEP500T PO; +ZINC220C10 PO
[2025-08-30 20:56] LABS: Amphetamine Screen, Urine Neg (NEGATIVE); Barbiturate Scree,Urine Neg (NEGATIVE); Benzodiazephine Screen, Urine Neg (NEGATIVE); Cannabinoid Screen, Urine Neg (NEGATIVE); Cocaine Screen, Urine Neg (NEGATIVE); Opiate Scree,Urine Neg (NEGATIVE); Phencyclidine Screen, Urine Neg (NEGATIVE)
[2025-08-30 20:57] LABS: Urine Protein, UAD Negative (Negative)
--- NOTE | 2025-08-30 21:12 | DVH ---
EXAM: CT HEAD WITHOUT CONTRAST INDICATION: Altered mental status TECHNIQUE: CT images of the head were obtained without administration of IV contrast. CT scans at this facility use dose modulation, iterative reconstruction, and/or weight based dosing when appropriate to reduce radiation dose to as low as reasonably achievable. COMPARISON: MRI BRAIN HEAD WO CONTRAST on DOS: 07/02/25 FINDINGS: PARENCHYMA: No acute hemorrhage. There is no mass effect, midline shift, or herniation. There is preservation of the nina white differentiation. Mild scattered hypoattenuation along the periventricular, centrum semiovale, and deep white matter tracts, which are nonspecific however statistically most likely represent chronic microvascular ischemic change. VENTRICLES: No hydrocephalus. EXTRA-AXIAL SPACES: No extra-axial fluid collections. OTHER: The bony structures are intact. Visualized portions of the paranasal sinuses and mastoid air cells are clear. IMPRESSION: 1. No CT evidence of an acute intracranial abnormality.
[2025-08-30 21:21] LABS: Hemoglobin 11.6 g/dL (13.5-17.5); Mean Corpuscular Volume 86.2 fL (80.0-100.0)
[2025-08-30 21:23] LABS: Hematocrit 33.3 % (41.0-53.0); Mean Corpuscular Hemoglobin 30.0 pg (28.0-32.0)
[2025-08-30 21:37] LABS: Alanine Aminotransferase 31 U/L (7-40); Albumin 4.1 g/dL (3.2-4.8); Alkaline Phosphatase 102 U/L (46-116); Anion Gap 2 (5-15); BUN/Creatinine Ratio 11.5 (10.0-20.0); Blood Urea Nitrogen 20 mg/dL (9-23); Calcium 9.3 mg/dL (8.7-10.4); Carbon Dioxide 25 mmol/L (20-31); Chloride 105 mmol/L (98-107); Glucose 128 mg/dL (74-106); Magnesium 2.1 mg/dL (1.6-2.6); Potassium 3.8 mmol/L (3.5-5.1); Sodium 132 mmol/L (136-145); Total Protein 7.1 g/dL (5.7-8.2)
[2025-08-30 21:38] LABS: Bilirubin, Total 1.7 mg/dL (0.2-1.0)
[2025-08-30 21:57] LABS: Lipase 38 U/L (12-53)
[2025-08-30 22:26] LABS: Total Cells Counted 100.0 (100)
--- NOTE | 2025-08-30 22:45 | ED.PDOC ---
History of Present Illness HPI Comments 75-year-old male who presents with chief complaint of confusion and headache. Patient is a poor historian. He endorses on awakening, this morning, to symptoms, with last recollection of going to sleep on 08/27/2025. Patient denies any further acute complaints. Per previous hospital admission, patient was seen by Neurology and diagnosed with possible partial complex seizures with transient global amnesia and confusional spells after being admitted for altered level of consciousness and possible seizures. REVIEW OF SYSTEMS: General: No fever, no chills, or fatigue HEENT: No sore throat, no earache, no congestion, no neck pain. Cardiac: No chest pain. No palpitations. Lungs: No shortness of breath, no cough. GI: No nausea, no vomiting, no diarrhea, no constipation, no abdominal pain : No dysuria, frequency, or urgency. No hematuria. Musculoskeletal: No joint pain , no joint swelling, no extremity edema. Skin: No rash, no itching. Neuro: Headache, confusion, no dizziness, no weakness (And as sated in HPI) PHYSICAL EXAM: General: Awake, alert and oriented. No acute distress. Skin: Skin in warm, dry and intact. Appropriate color for ethnicity. HEENT: The head is normocephalic and atraumatic. Conjunctivae are clear without exudates or hemorrhage. Sclera is non-icteric. Eyelids are normal in appearance without swelling or lesions. Oral mucosa is pink and moist Neck: The neck is supple with normal range of motion. No JVD. Cardiac: Heart rate and rhythm are normal. No murmurs, gallops, or rubs are a uscultated. Respiratory: No signs of respiratory distress. Lung sounds are clear in all lobes bilaterally without rales, rhonchi, or wheezes. Abdominal: Abdomen is soft, non-tender without distention, guarding or rigidity. Bowel sounds are present and normoactive in all four quadrants. Extremities: Upper and lower extremities are atraumatic in appearance without deformity or edema. Neurological: The patient is awake, alert and oriented to person, place, and time with normal speech. Speech is clear. There is no facial asymmetry. Normal [id number] test. Normal gait. Psychiatric: Appropriate mood and affect. Good judgement and insight. Chief Complaint: Headache Time Seen by MD: 20:28 Primary Care Provider: UNKNOWN Reviewed Notes: Nurses Notes, Medications, Allergies Allergies: Coded Allergies: NO KNOWN ALLERGIES (Unverified , 11/13/21) Home Meds Active Scripts Zinc Sulfate (Zinc) 220 Mg Cap, 220 MG PO DAILY for 15 Days, #15 CAP Prov:SAM DAVIS MD 07/06/25 Cholecalciferol (Vitamin D-[address]) 1,000 Unit Tab, 2000 UNIT PO DAILY for 15 Days, #30 TAB Prov:SAM DAVIS MD 07/06/25 Ascorbic Acid (VITAMIN C TABLET) 500 Mg Tb, 500 MG PO BID for 15 Days, #30 TAB Prov:SAM DAVIS MD 07/06/25 Levetiracetam (KEPPRA TABLET) 500 Mg Tb, 500 MG PO BID for 30 Days, #60 TAB Prov:SAM DAVIS MD 07/06/25 Reported Medications Upadacitinib (Rinvoq) 15 Mg Tab, 1 TAB PO DAILY 09/26/24 Hydroxychloroquine Sulfate (Hydroxychloroquine Sulfat) 200 Mg Tab, 200 MG PO DAILY for 30 Days, MG 11/15/21 Glimepiride (Glimepiride) 2 Mg Tab, 2 MG PO BID for 30 Days, MG 11/15/21 Information Source: Patient Mode of Arrival: Ambulatory Severity: Moderate Timing: Hours Duration: Since onset Prehospital treatment: None Past Medical History PAST MEDICAL HISTORY: Arthritis, Cancer (Leukemia), Depression, DM, HTN, Thyroid (Partial complex and simple seizures) Past Medical History (Other): GABRIELA Confusional spells Transient global amnesia Olfactory and gustatory hallucinations Neutropenia and thrombocytopenia Surgical History: Tonsillectomy Family History Family History (Other): Dementia Social History Smoker: Non-Smoker Alcohol: Denies ETOH Use Drugs: Denies Drug Use Lives In: Home Was a procedure done? Was a procedure done?: No EKG EKG : Pulse Rate (adult): 75 [place]: Normal Cardiac Rhythm: NSR Block: None Hypertrophy: LVH ST: Normal Differential Dx Considerations may include: Differential diagnosis considered includes but not limited to intracranial hemorrhage, stroke, head injury, seizure, metabolic disturbance, electrolyte imbalance, infection, substance intoxication, psychiatric cause, other systemic illness, other X-Ray, Labs, Meds, VS Vital Signs Date Time Temp Pulse Resp B/P (MAP) Pulse Ox O2 Delivery O2 Flow Rate FiO2 08/30/25 23:25 75 08/30/25 23:05 98.1 71 18 148/64 (92) 97 98.1 08/30/25 22:53 Room Air* 0 21 08/30/25 22:53 97.5 89 16 161/68 (99) 99 97.5 08/30/25 20:24 75 08/30/25 20:11 98.4 84 13 171/89 99 98.4 Lab Test 08/30/25 22:50 08/30/25 22:20 08/30/25 21:00 08/30/25 20:33 Range/Units Influenza Type A Antigen Negative Negative Influenza Type B Antigen Negative Negative SARS-CoV-2 Antigen (Rapid) Negative NEGATIVE Troponin I High Sensitivity 11 11 </=54 ng/L White Blood Count 1.3 *L 4.4-10.8 10^3/uL Red Blood Count 3.86 L 4.5-5.90 10^6/uL Hemoglobin 11.6 L 13.5-17.5 g/dL Hematocrit 33.3 L 41.0-53.0 % Mean Corpuscular Volume 86.2 80.0-100.0 fL Mean Corpuscular Hemoglobin 30.0 28.0-32.0 pg Mean Corpuscular Hemoglobin Concent 34.9 32.0-36.0 g/dL Red Cell Distribution Width 14.6 H 11.8-14.3 % Platelet Count 122 L 140-450 10^3/uL Mean Platelet Volume 7.5 6.9-10.8 fL Neutrophils (%) (Auto) 37.0-80.0 % Lymphocytes (%) (Auto) 10.0-50.0 % Monocytes (%) (Auto) 0.0-12.0 % Basophils (%) (Auto) 0.0-2.0 % Neutrophils # (Auto) 1.6-8.6 10 ^3/uL Lymphocytes # (Auto) 0.4-5.4 10 ^3/uL Monocytes # (Auto) 0-1.3 10 ^3/uL Differential Total Cells Counted 100.0 100 Neutrophils % (Manual) 40 37.0-80.0 Band Neutrophils % (Manual) 0 Lymphocytes % (Manual) 45 10.0-50.0 Monocytes % (Manual) 15 H 0-12 Eosinophils % (Manual) 0 0-7 Basophils % (Manual) 0 0.0-2.0 Metamyelocytes % (manual) 0 Myelocytes % (Manual) 0 Promyelocytes % (Manual) 0 Blast Cells % (Manual) 0 Reactive Lymphocytes 0 Platelet Estimate Decreased Large Platelets Few Sodium Level 132 L 136-145 mmol/L Potassium Level 3.8 3.5-5.1 mmol/L Chloride Level 105 98-107 mmol/L Carbon Dioxide Level 25 20-31 mmol/L Anion Gap 2 L 5-15 Blood Urea Nitrogen 20 9-23 mg/dL Creatinine 1.74 H 0.700-1.30 mg/dL Glomerular Filtration Rate Calc 40 >90 mL/min BUN/Creatinine Ratio 11.5 10.0-20.0 Serum Glucose 128 H 74-106 mg/dL Lactic Acid Level 0.9 0.4-2.0 mmol/L Calcium Level 9.3 8.7-10.4 mg/dL Magnesium Level 2.1 1.6-2.6 mg/dL Total Bilirubin 1.7 H 0.2-1.0 mg/dL Aspartate Amino Transferase (AST) 42 H 13-40 U/L Alanine Aminotransferase (ALT) 31 7-40 U/L Alkaline Phosphatase 102 46-116 U/L B-Type Natriuretic Peptide 76.01 0-100 pg/mL Total Protein 7.1 5.7-8.2 g/dL Albumin 4.1 3.2-4.8 g/dL Lipase 38 12-53 U/L Plasma/Serum Blood Alcohol < 3.0 <10 mg/dL Urine Color Colorless Yellow Urine Clarity Clear Clear Urine pH 6.0 5.0-9.0 Urine Specific [place] 1.006 1.001-1.035 Urine Protein Negative Negative Urine Ketones Negative Negative Urine Blood Negative Negative /uL Urine Nitrite Negative Negative Urine Bilirubin Negative Negative Urine Urobilinogen Normal Negative mg/dL Urine Leukocyte Esterase Negative Negative /uL Urine RBC <1 0 - 3 /hpf Urine Microscopic WBC < 1 0-3 /HPF Urine Squamous Epithelial Cells Few <5 /hpf Urine Bacteria None seen None Seen /hpf Urine Glucose Normal Normal mg/dL Urine Opiates Screen Neg NEGATIVE Urine Fentanyl Screen Neg NEGATIVE Urine Barbiturates Screen Neg NEGATIVE Urine Phencyclidine Screen Neg NEGATIVE Urine Amphetamines Screen Neg NEGATIVE Urine Benzodiazepines Screen Neg NEGATIVE Urine Cocaine Screen Neg NEGATIVE Urine Cannabinoids Screen Neg NEGATIVE Test 08/30/25 20:17 Range/Units POC Glucose 106 70-106 mg/dl Time of 1ST Reevaluation: 22:44 Reevaluation 1ST: Unchanged Patient Education/Counseling: Need For Follow Up Family Education/Counseling: No Family Present SEPSIS Sepsis Screen Date sepsis recognized/suspect: Aug 30, 2025 Time Sepsis recognized/suspect: 2010 Recent Procedure: No On Antibiotic Therapy: No Respiratory Rate >20: No Heart Rate >90: No Temp<36 C (96.8 F) or >38.3 C: No SBP <90 or MAP <65 mmHG: No New Acute Mental Status Change: No Is the patient on CPAP, BIPAP,: No Physician Orders Electrocardigram (08/30/25 20:19) Chest Xray 1 View (08/30/25 20:28) Blood Culture (08/30/25 20:28) Saline Lock (08/30/25 20:28) Straight Cath. (08/30/25 ) Head Without Contrast (08/30/25 20:28) Vital Signs Date Time Temp Pulse Resp B/P (MAP) Pulse Ox O2 Delivery O2 Flow Rate FiO2 08/30/25 23:25 75 08/30/25 23:05 98.1 71 18 148/64 (92) 97 98.1 08/30/25 22:53 Room Air* 0 21 08/30/25 22:53 97.5 89 16 161/68 (99) 99 97.5 08/30/25 20:24 75 08/30/25 20:11 98.4 84 13 171/89 99 98.4 Laboratory Tests Test 08/30/25 21:00 Lactic Acid Level 0.9 mmol/L (0.4-2.0) White Blood Count 1.3 10^3/uL (4.4-10.8) *L Departure 1 Departure Time of Disposition: 22:44 Impression: Primary Impression: Altered mental status Disposition: 09 ADMITTED INPATIENT Condition: Stable Comments MDM: 75-year-old male with a acute episode of altered mental status. Recently diagnosed with seizures. Noncompliant with Keppra. Patient admitted to hospitalist service for further treatment, evaluation and monitoring. Extensive evaluation was performed in attempt to identify or rule out: (See differential diagnosis section) The following tests were ordered, and results were reviewed by me and discussed with patient: (See diagnostic results section) The following test were independently interpreted by me: Manual differential, troponin, blood culture, UA, rapid influenza a and b, COVID 19 antigen Eufemia, magnesium, lipase, CMP, drug screen, lactic acid reflux, CBC, BNP, blood alcohol, EKG I reviewed and agreed with the following test results read by other providers: CT head without contrast I reviewed the following notes from the pt's past medical encounters: July 02, 2025 encounter for acute confusional state Additional information was gathered from interviewing the following independent historians: N/A Discussion of management or test interpretation with external physician/other qualified health resident care director: N/A Decision regarding hospitalization or escalation of hospital level of care: Risk and benefits of admission for further treatment of patient's condition was considered. Due to patient's current clinical condition, high risk of decline and poor outcome if discharged and need for further inpatient management and monitoring, patient will be admitted to the hospital. Critical Care Note Critical Care Time?: No Stability Stability form required: No Heart Score Heart Score: Heart Score Response (Comments) Value History N/A 0 EKG N/A 0 Age N/A 0 Risk Factors N/A 0 Troponin N/A 0 Total 0 I personally scribed for GARO MONROY MD ([email or web address]) on 08/30/25 at 23:25. Electronically submitted by Edvin Vasques ([email or web address]). GARO MONROY MD Aug 30, 2025 22:45
--- NOTE | 2025-08-30 22:49 | DVH ---
CHEST RADIOGRAPH Indication: AMS Technique: Single frontal view of the chest was obtained COMPARISON: XY CHEST PORTABLE on DOS: 07/02/25, XY CHEST XRAY 1 VIEW on DOS: 09/26/24, XY CHEST PORTABLE on DOS: 10/13/23 FINDINGS: Lungs and pleural spaces are clear. Cardiac silhouette and wil are within normal limits. Bones and soft tissues demonstrate no significant abnormality. IMPRESSION: No acute disease.
[2025-08-30 23:51] LABS: COVID19 ANTIGEN SOFIA FIA NEGATIVE (NEGATIVE)
[2025-08-31] MEDS ORDERED: ONDANSETRON HCL 4 MG/2 ML VIAL IV PRN (00:15)
[2025-08-31] MEDS ORDERED: HYDROcodone-ACET 5/325MG TAB PO PRN (00:15)
--- NOTE | 2025-08-31 00:21 | DVHHP2 ---
History of Present Illness Reason for Visit: Headache History of Present Illness 75-year-old male presents for evaluation of a headache. Patient reports waking up today with a diffuse headache. He reports feeling disoriented. He states going to sleep on night and today (Sunday) he woke up with a headache and not able to recall what happened Sunday or Sunday. Denies dizziness. He does report feeling off balance. No cardiac or respiratory complaints. Review of Systems Review of Systems Review of systems are currently negative otherwise addressed in HPI. Allergies: Coded Allergies: NO KNOWN ALLERGIES (Unverified , 11/13/21) Exam Vital Signs Vital Signs Date Time Temp Pulse Resp B/P (MAP) Pulse Ox O2 Delivery O2 Flow Rate FiO2 08/30/25 23:25 75 08/30/25 23:05 98.1 18 148/64 (92) 97 98.1 08/30/25 22:53 Room Air* 0 21 Exam Gen: 75-year-old male in mild distress. Skin: Warm, dry, normal color and texture, no rash. HEENT: Normocephalic atraumatic, mucous membranes moist and pink. Neck: Cervical and supraclavicular nodes normal without enlargement, trachea is midline, thyroid gland is normal without masses. Pulmonary: Clear to auscultation and percussion bilaterally. Cardiac: Regular rate and rhythm. No murmur Abdomen: Soft, nontender, nondistended, bowel sounds present all 4 quadrants, no guarding, no rigidity, no organomegaly. Extremities: No cyanosis, clubbing, no edema Neuro: Cranial nerves II through XII grossly intact, normal affect and speech, no focal motor deficits. Labs/Xrays ORDERING PHYSICIAN: GARO MONROY MD PROCEDURE(s): CXR1 - CHEST XRAY 1 VIEW REASON: [facility] ORDER NUMBER(s): [id number], ACCESSION NUMBER(s): [id number] CHEST RADIOGRAPH Indication: AMS Technique: Single frontal view of the chest was obtained COMPARISON: XY CHEST PORTABLE on DOS: 07/02/25, XY CHEST XRAY 1 VIEW on DOS: 09/26/24, XY CHEST PORTABLE on DOS: 10/13/23 FINDINGS: Lungs and pleural spaces are clear. Cardiac silhouette and wil are within normal limits. Bones and soft tissues demonstrate no significant abnormality. IMPRESSION: No acute disease. RING PHYSICIAN: GARO MONROY MD PROCEDURE(s): HWOCT - HEAD WITHOUT CONTRAST REASON: Altered mental status ORDER NUMBER(s): [id number], ACCESSION NUMBER(s): [id number] EXAM: CT HEAD WITHOUT CONTRAST INDICATION: Altered mental status TECHNIQUE: CT images of the head were obtained without administration of IV contrast. CT scans at this facility use dose modulation, iterative reconstruction, and/or weight based dosing when appropriate to reduce radiation dose to as low as reasonably achievable. COMPARISON: MRI BRAIN HEAD WO CONTRAST on DOS: 07/02/25 FINDINGS: PARENCHYMA: No acute hemorrhage. There is no mass effect, midline shift, or herniation. There is preservation of the nina white differentiation. Mild scattered hypoattenuation along the periventricular, centrum semiovale, and deep white matter tracts, which are nonspecific however statistically most likely represent chronic microvascular ischemic change. VENTRICLES: No hydrocephalus. EXTRA-AXIAL SPACES: No extra-axial fluid collections. OTHER: The bony structures are intact. Visualized portions of the paranasal sinuses and mastoid air cells are clear. IMPRESSION: 1. No CT evidence of an acute intracranial abnormality. Labs Test 08/30/25 22:50 08/30/25 22:20 08/30/25 21:00 08/30/25 20:33 Range/Units Influenza Type A Antigen Negative Negative Influenza Type B Antigen Negative Negative SARS-CoV-2 Antigen (Rapid) Negative NEGATIVE Troponin I High Sensitivity 11 </=54 ng/L White Blood Count 1.3 *L 4.4-10.8 10^3/uL Red Blood Count 3.86 L 4.5-5.90 10^6/uL Hemoglobin 11.6 L 13.5-17.5 g/dL Hematocrit 33.3 L 41.0-53.0 % Mean Corpuscular Volume 86.2 80.0-100.0 fL Mean Corpuscular Hemoglobin 30.0 28.0-32.0 pg Mean Corpuscular Hemoglobin Concent 34.9 32.0-36.0 g/dL Red Cell Distribution Width 14.6 H 11.8-14.3 % Platelet Count 122 L 140-450 10^3/uL Mean Platelet Volume 7.5 6.9-10.8 fL Neutrophils (%) (Auto) 37.0-80.0 % Lymphocytes (%) (Auto) 10.0-50.0 % Monocytes (%) (Auto) 0.0-12.0 % Basophils (%) (Auto) 0.0-2.0 % Neutrophils # (Auto) 1.6-8.6 10 ^3/uL Lymphocytes # (Auto) 0.4-5.4 10 ^3/uL Monocytes # (Auto) 0-1.3 10 ^3/uL Differential Total Cells Counted 100.0 100 Neutrophils % (Manual) 40 37.0-80.0 Band Neutrophils % (Manual) 0 Lymphocytes % (Manual) 45 10.0-50.0 Monocytes % (Manual) 15 H 0-12 Eosinophils % (Manual) 0 0-7 Basophils % (Manual) 0 0.0-2.0 Metamyelocytes % (manual) 0 Myelocytes % (Manual) 0 Promyelocytes % (Manual) 0 Blast Cells % (Manual) 0 Reactive Lymphocytes 0 Platelet Estimate Decreased Large Platelets Few Sodium Level 132 L 136-145 mmol/L Potassium Level 3.8 3.5-5.1 mmol/L Chloride Level 105 98-107 mmol/L Carbon Dioxide Level 25 20-31 mmol/L Anion Gap 2 L 5-15 Blood Urea Nitrogen 20 9-23 mg/dL Creatinine 1.74 H 0.700-1.30 mg/dL Glomerular Filtration Rate Calc 40 >90 mL/min BUN/Creatinine Ratio 11.5 10.0-20.0 Serum Glucose 128 H 74-106 mg/dL Lactic Acid Level 0.9 0.4-2.0 mmol/L Calcium Level 9.3 8.7-10.4 mg/dL Magnesium Level 2.1 1.6-2.6 mg/dL Total Bilirubin 1.7 H 0.2-1.0 mg/dL Aspartate Amino Transferase (AST) 42 H 13-40 U/L Alanine Aminotransferase (ALT) 31 7-40 U/L Alkaline Phosphatase 102 46-116 U/L B-Type Natriuretic Peptide 76.01 0-100 pg/mL Total Protein 7.1 5.7-8.2 g/dL Albumin 4.1 3.2-4.8 g/dL Lipase 38 12-53 U/L Plasma/Serum Blood Alcohol < 3.0 <10 mg/dL Urine Color Colorless Yellow Urine Clarity Clear Clear Urine pH 6.0 5.0-9.0 Urine Specific [place] 1.006 1.001-1.035 Urine Protein Negative Negative Urine Ketones Negative Negative Urine Blood Negative Negative /uL Urine Nitrite Negative Negative Urine Bilirubin Negative Negative Urine Urobilinogen Normal Negative mg/dL Urine Leukocyte Esterase Negative Negative /uL Urine RBC <1 0 - 3 /hpf Urine Microscopic WBC < 1 0-3 /HPF Urine Squamous Epithelial Cells Few <5 /hpf Urine Bacteria None seen None Seen /hpf Urine Glucose Normal Normal mg/dL Urine Opiates Screen Neg NEGATIVE Urine Fentanyl Screen Neg NEGATIVE Urine Barbiturates Screen Neg NEGATIVE Urine Phencyclidine Screen Neg NEGATIVE Urine Amphetamines Screen Neg NEGATIVE Urine Benzodiazepines Screen Neg NEGATIVE Urine Cocaine Screen Neg NEGATIVE Urine Cannabinoids Screen Neg NEGATIVE Test 08/30/25 20:17 Range/Units POC Glucose 106 70-106 mg/dl SEPSIS Sepsis Screen Date sepsis recognized/suspect: Aug 30, 2025 Time Sepsis recognized/suspect: 2010 Recent Procedure: No On Antibiotic Therapy: No Respiratory Rate >20: No Heart Rate >90: No Temp<36 C (96.8 F) or >38.3 C: No SBP <90 or MAP <65 mmHG: No New Acute Mental Status Change: No Is the patient on CPAP, BIPAP,: No Physician Orders Electrocardigram (08/30/25 20:19) Chest Xray 1 View (08/30/25 20:28) Blood Culture (08/30/25 20:28) Saline Lock (08/30/25 20:28) Straight Cath. (08/30/25 ) Troponin-I Hs (08/30/25 23:28) Head Without Contrast (08/30/25 20:28) Admit (08/30/25 23:57) * Neurology Consult (08/30/25 23:57) Levetiracetam Tablet (Keppra Tablet) (08/31/25 10:00) Hydroxychloroquine Tablet (Plaquenil Tab (08/31/25 10:00) Lisinopril Tablet (Zestril Tablet) (08/31/25 10:00) NS (08/31/25 00:15) Hydrocodone-Acet 5/325mg Tab ([place] 5/32 (08/31/25 00:15) Ondansetron Hcl (Zofran) (08/31/25 00:15) Cardiac Diet-2gna,Lofat,Lochol (08/31/25 Breakfast) Condition: Stable (08/31/25 00:03) Acetaminophen Tablet (Tylenol Tablet) (08/31/25 00:15) Bedrest With Bathroom Privileg (08/31/25 00:03) Basic Metabolic Panel (09/01/25 04:00) Vital Signs Date Time Temp Pulse Resp B/P (MAP) Pulse Ox O2 Delivery O2 Flow Rate FiO2 08/30/25 23:25 75 08/30/25 23:05 98.1 71 18 148/64 (92) 97 98.1 08/30/25 22:53 Room Air* 0 21 08/30/25 22:53 97.5 89 16 161/68 (99) 99 97.5 08/30/25 20:24 75 08/30/25 20:11 98.4 84 13 171/89 99 98.4 Laboratory Tests Test 08/30/25 21:00 Lactic Acid Level 0.9 mmol/L (0.4-2.0) White Blood Count 1.3 10^3/uL (4.4-10.8) *L Assessment/Plan Assessment/Plan Assessment Acute encephalopathy Possible transient global amnesia Neutropenia/thrombocytopenia History of leukemia Acute kidney injury Hypertension Plan Admit the patient to [facility] to the hospitalist Nephrology consultation Resume home medications Continue treatment per orders. Plan discussed with: Patient My Orders Orders - PAT LUNA AGACNDo Procedure Category Date Status Time Admit ADMIT 08/30/25 Transmitted 23:57 * Neurology Consult CONS 08/30/25 Transmitted 23:57 Levetiracetam Tablet PHA 08/31/25 Verified (Keppra Tablet) 10:00 Hydroxychloroquine PHA 08/31/25 Verified Tablet (Plaquenil Tab 10:00 Lisinopril Tablet PHA 08/31/25 Verified (Zestril Tablet) 10:00 NS PHA 08/31/25 Verified 00:15 Hydrocodone-Acet PHA 08/31/25 Verified 5/325mg Tab (Hortense 00:15 Ondansetron Hcl PHA 08/31/25 Verified (Zofran) 00:15 Cardiac DIET 08/31/25 Verified Diet-2gna,Lofat,Lochol Breakfast Condition: Stable COLE 08/31/25 Verified 00:03 Acetaminophen Tablet PHA 08/31/25 Verified (Tylenol Tablet) 00:15 Bedrest With Bathroom COLE 08/31/25 Verified Privileg 00:03 Basic Metabolic Panel LAB 09/01/25 Verified 04:00 Date of Service: Aug 30, 2025 Billing Provider: PAT LUNA Common Visit Codes: [id number] INP/OBS CARE (MOD) PAT LUNA Aug 31, 2025 00:21
[2025-08-31] MEDS: SODIUM CHLORIDE 0.9% 500 ML IV ONE (01:04)
[2025-08-31 04:28] VITALS: PULSE 67; RESP 12; O2SAT 99
--- NOTE | 2025-08-31 05:45 | ECG ---
[facility] Test Date: 2025-08-30 Test Time: 20:24:27 Pat Name: LUPILLO DE LA PAZ Department: Room: [address] [id number] [address] Gender: M Superannuation Clerk: DR DAVIS: 1950 Requested By: GARO MONROY Order Number: [id number] Reading MD: Gerardo Barbosa Measurements Intervals [place] Rate: 75 P: 67 ME: 171 QRS: -26 QRSD: 116 T: 37 QT: 437 QTc: 489 Interpretive Statements Sinus rhythm Incomplete RBBB and LAFB Left ventricular hypertrophy Anterior Q waves, possibly due to LVH Baseline wander in lead(s) V1 Electronically Signed On 08-31-2025 11:00:38 PST by Gerardo Barbosa Please click the below link to view image of tracing.
[2025-08-31 07:53] VITALS: PULSE 68; RESP 19; O2SAT 98
--- NOTE | 2025-08-31 09:08 | DVHINCON2 ---
Date of service: Aug 31, 2025 Referring Physician Mason Reason for Consultation Headache, disorientation History of Present Illness Mr. Dhillon is a 75 years older left-handed gentleman with a history of hypertension, diabetes, leukemia, arthritis, he came to the [facility] on 08/30/25 with a chief complaint of confusion and headache. At that time, he is alert and fully oriented, he recognized me, he provided the following history I saw him on 09/26/2024 for cognitive decline, 07/03/2025 for ALOC The last memory was either 08/28/25 or 08/29/25, for the next memory was waking up on 08/30/25 confused and with mild headache, and he did not remember his treating name, but he knew he was at home, and he was in the [place] On 07/01/2025, when he was driving, he developed confusion, but he was able to used the landmark along the street to drive, he was confused for about 15 minutes. From 09/2023 - 09/25/2024, he had six spells of confusion, three of them lasted for 20-30 minutes, another three was 2-3 hours, he did not lose his consciousness, he was able to manipulate his vehicle if he was driving From 09/2023 to 09/2024 he had four spells of olfactory hallucination where he smelt nonexisting old furniture or mould, there was no associated mental status changes, in the end of 05/2025, he had a spell of olfactory hallucination but he was not able to specify the symptoms From 09/2023 to 09/2024, he had four spells of gustatory hallucination where he tasted bitter in the mouth, the spells lasted for 1-2 days, without mental status change I prescribed Keppra for him but he has not filled According to our record, the patient filled Keppra 500 mg b.i.d. on 01/07/2025 RPR, 09/26/2024: Negative UDS, 09/25/2024: Negative, 07/02/2025: Negative Plasma alcohol, 09/25/2024: < 3, 08/30/2025: <3 WBC/HB/PLT/MCV, 07/03/2025: 1.8/11.7/92/88, 07/05/2025: 1.5/12.1/101/88, 08/30/2025: 1.3/11.6/122/11.6 BUN/CR, 09/25/24: 22/1.54, 07/03/2025: 23/1, 08/30/2025: 20/1.74 GFR, 07/03/2025: 57, 08/30/2025: 40 TBI/AST/ALT/AP, 09/25/2024: 1.4/36/37/108, 07/02/2025: 1.4/44/29/99, 08/30/2025: 1.7/42/31/102 HGB A1c, 09/26/2024: 5.8 Vitamin B12, 09/26/2024:350 Folic acid, 09/26/2024: 12.95 TSH, 09/26/2020 4:1446 Carotid Doppler, 09/26/2024: No hemodynamically significant stenosis within the carotid arteries CT head, 09/25/2024: No acute intracranial abnormality CT head, 07/02/2025: 1. No acute territorial infarct, intracranial hemorrhage, or mass effect. 2. Age-related involutional changes. Chronic microvascular changes. 3. If clinical symptoms persist, MRI may be beneficial in further evaluation. CT head, 08/30/2025: No CT evidence of an acute intracranial abnormality. MRI head, 09/26/2024: 1. There is no acute intracranial process. 2. Chronic r ight maxillary sinus disease MRI head, 07/02/2025: 1. No evidence of acute intracranial abnormality. 2. Nonacute findings as described above. 3. Right maxillary sinusitis. Past Medical History Hypertension, diabetes, cancer, arthritis. No history of , the head injury, intracranial infection, no history of stroke or seizure Past Surgical History Tonsillectomy Family History: Diabetes mellitus G8 MOTHER Hypertension G8 FATHER Family History Hypertension, diabetes, dementia (maternal grandfather, mother) Social History He is not a tobacco smoker, he denies a history of alcohol or recreational substance abuse Allergies: Coded Allergies: NO KNOWN ALLERGIES (Unverified , 11/13/21) Home Meds Active Scripts Zinc Sulfate (Zinc) 220 Mg Cap, 220 MG PO DAILY for 15 Days, #15 CAP Prov:MIDOU,WAHID MD 07/06/25 Cholecalciferol (Vitamin D-[address]) 1,000 Unit Tab, 2000 UNIT PO DAILY for 15 Days, #30 TAB Prov:SAM DAVIS MD 07/06/25 Ascorbic Acid (VITAMIN C TABLET) 500 Mg Tb, 500 MG PO BID for 15 Days, #30 TAB Prov:SAM DAVIS MD 07/06/25 Levetiracetam (KEPPRA TABLET) 500 Mg Tb, 500 MG PO BID for 30 Days, #60 TAB Prov:SAM DAVIS MD 07/06/25 Reported Medications Upadacitinib (Rinvoq) 15 Mg Tab, 1 TAB PO DAILY 09/26/24 Hydroxychloroquine Sulfate (Hydroxychloroquine Sulfat) 200 Mg Tab, 200 MG PO DAILY for 30 Days, MG 11/15/21 Glimepiride (Glimepiride) 2 Mg Tab, 2 MG PO BID for 30 Days, MG 11/15/21 Current Medications Current Medications Medications (Trade) Dose Ordered Sig/Justino Route PRN Reason Start Time Stop Time Status Last Admin Levetiracetam (Keppra Tablet) 500 mg BID PO 08/31/25 10:00 Hydroxychloroquine Sulfate (Plaquenil Tablet) 200 mg DAILY PO 08/31/25 10:00 Lisinopril (Zestril Tablet) 10 mg DAILY PO 08/31/25 10:00 Acetaminophen/ Hydrocodone Bitart (Hamel 5/325MG Tab) 1 tab Q4HP PRN PO MODERATE PAIN (4-6 PAIN SCALE) 08/31/25 00:15 Ondansetron HCl (Zofran) 4 mg Q4HP PRN IV NAUSEA / VOMITING 08/31/25 00:15 Acetaminophen (Tylenol Tablet) 650 mg Q6HP PRN PO PAIN SCALE 1-3 OR TEMP>100.4 08/31/25 00:15 Review of Systems As above, the other systems are negative Vital Signs Vital Signs Date Time Temp Pulse Resp B/P (MAP) Pulse Ox O2 Delivery O2 Flow Rate FiO2 08/31/25 08:00 65 08/31/25 08:00 99.0 17 127/69 (88) 99 99.0 08/31/25 07:53 Room Air* 0 21 Physical Exam GENERAL EXAM: General: the patient is well developed and nourished. No acute distress. HEENT: Normocephalic, neck is supple, no carotid bruits. No mass. RESPIRATORY: Normal respiratory effort with symmetrical lung expansion. Lungs clear to auscultation. CARDIOVASCULAR: Regular rate and rhythm with no murmurs. S1, S2. ABDOMEN: Soft, nontender, normal bowel sound NEUROLOGICAL: MENTAL STATUS: Awake and alert. Oriented to person, place, time and general circumstances. Able to give personal history. SPEECH, LANGUAGE, HIGHER CORTICAL FUNCTION: no aphasia or dysathria. CRANIAL NERVES: #2: Intact visual jarquin to confrontation. The optic discs were sharp. #3,4,6: Pupils are equal, round and reactive. EOMs full and conjugate. No nystagmus. #5: Facial sensation intact in all three divisions bilaterally. Mandibular strength intact. #7: Facial muscles symmetrical and strength intact. #8: Hearing grossly normal to voice. #9,10: Uvula and soft palate rise in the midline. Swallow and voice are normal. #11: Trapezius and sternomastoid strength intact bilaterally. #12: Tongue midline. No fasciculations or atrophy. SENSATION: Sensation to touch and pinprick is normal. MOTOR: Normal tone in the upper and lower extremity. Normal muscle bulk. No fasciculations. No abnormal movements or posturing. Muscle strength of the major groups in the upper extremities is 5/5. Muscle strength of the major groups in t he lower extremities is 5/5. REFLEXES: Deep tendon reflexes normal and symmetrical. No pathological reflexes. CEREBELLAR/COORDINATION: Finger to nose, [id number] are normal bilaterally. GAIT/STATION: deferred. Labs/Diagnostic Data Labs Test 08/30/25 22:50 08/30/25 22:20 08/30/25 21:00 08/30/25 20:33 Range/Units Influenza Type A Antigen Negative Negative Influenza Type B Antigen Negative Negative SARS-CoV-2 Antigen (Rapid) Negative NEGATIVE Troponin I High Sensitivity 11 </=54 ng/L White Blood Count 1.3 *L 4.4-10.8 10^3/uL Red Blood Count 3.86 L 4.5-5.90 10^6/uL Hemoglobin 11.6 L 13.5-17.5 g/dL Hematocrit 33.3 L 41.0-53.0 % Mean Corpuscular Volume 86.2 80.0-100.0 fL Mean Corpuscular Hemoglobin 30.0 28.0-32.0 pg Mean Corpuscular Hemoglobin Concent 34.9 32.0-36.0 g/dL Red Cell Distribution Width 14.6 H 11.8-14.3 % Platelet Count 122 L 140-450 10^3/uL Mean Platelet Volume 7.5 6.9-10.8 fL Neutrophils (%) (Auto) 37.0-80.0 % Lymphocytes (%) (Auto) 10.0-50.0 % Monocytes (%) (Auto) 0.0-12.0 % Basophils (%) (Auto) 0.0-2.0 % Neutrophils # (Auto) 1.6-8.6 10 ^3/uL Lymphocytes # (Auto) 0.4-5.4 10 ^3/uL Monocytes # (Auto) 0-1.3 10 ^3/uL Differential Total Cells Counted 100.0 100 Neutrophils % (Manual) 40 37.0-80.0 Band Neutrophils % (Manual) 0 Lymphocytes % (Manual) 45 10.0-50.0 Monocytes % (Manual) 15 H 0-12 Eosinophils % (Manual) 0 0-7 Basophils % (Manual) 0 0.0-2.0 Metamyelocytes % (manual) 0 Myelocytes % (Manual) 0 Promyelocytes % (Manual) 0 Blast Cells % (Manual) 0 Reactive Lymphocytes 0 Platelet Estimate Decreased Large Platelets Few Sodium Level 132 L 136-145 mmol/L Potassium Level 3.8 3.5-5.1 mmol/L Chloride Level 105 98-107 mmol/L Carbon Dioxide Level 25 20-31 mmol/L Anion Gap 2 L 5-15 Blood Urea Nitrogen 20 9-23 mg/dL Creatinine 1.74 H 0.700-1.30 mg/dL Glomerular Filtration Rate Calc 40 >90 mL/min BUN/Creatinine Ratio 11.5 10.0-20.0 Serum Glucose 128 H 74-106 mg/dL Lactic Acid Level 0.9 0.4-2.0 mmol/L Calcium Level 9.3 8.7-10.4 mg/dL Magnesium Level 2.1 1.6-2.6 mg/dL Total Bilirubin 1.7 H 0.2-1.0 mg/dL Aspartate Amino Transferase (AST) 42 H 13-40 U/L Alanine Aminotransferase (ALT) 31 7-40 U/L Alkaline Phosphatase 102 46-116 U/L B-Type Natriuretic Peptide 76.01 0-100 pg/mL Total Protein 7.1 5.7-8.2 g/dL Albumin 4.1 3.2-4.8 g/dL Lipase 38 12-53 U/L Plasma/Serum Blood Alcohol < 3.0 <10 mg/dL Urine Color Colorless Yellow Urine Clarity Clear Clear Urine pH 6.0 5.0-9.0 Urine Specific [place] 1.006 1.001-1.035 Urine Protein Negative Negative Urine Ketones Negative Negative Urine Blood Negative Negative /uL Urine Nitrite Negative Negative Urine Bilirubin Negative Negative Urine Urobilinogen Normal Negative mg/dL Urine Leukocyte Esterase Negative Negative /uL Urine RBC <1 0 - 3 /hpf Urine Microscopic WBC < 1 0-3 /HPF Urine Squamous Epithelial Cells Few <5 /hpf Urine Bacteria None seen None Seen /hpf Urine Glucose Normal Normal mg/dL Urine Opiates Screen Neg NEGATIVE Urine Fentanyl Screen Neg NEGATIVE Urine Barbiturates Screen Neg NEGATIVE Urine Phencyclidine Screen Neg NEGATIVE Urine Amphetamines Screen Neg NEGATIVE Urine Benzodiazepines Screen Neg NEGATIVE Urine Cocaine Screen Neg NEGATIVE Urine Cannabinoids Screen Neg NEGATIVE Test 08/30/25 20:17 Range/Units POC Glucose 106 70-106 mg/dl Assessment Confusional spells Partial complex seizure Transient global amnesia Olfactory hallucination Partial simple seizure Gustatory hallucination Partial simple seizure Family history of dementia Plan/Recommendation Monitoring Supportive treatments Telemetry EEG Keppra 500 mg b.i.d. Ativan for Seizure breakthrough Service Re: Living alone, can not drive DMV report filed a last hospitalization He has been advised not drive and he is cleared Follow with me and his family doctors on discharge This medical document was created using an electronic medical record system with [employer] dictation system. Although this document has been carefully reviewed, there may still be some phonetic and typographical errors. These areas are purely typographical due to imperfections of the software programs, and do not reflect any compromise in the patient's medical care. Plan discussed with: Patient, Other VANDANA JOHNSON MD Aug 31, 2025 09:08
[2025-08-31] MEDS: levETIRAcetam 500 MG TAB PO SCH (09:34)
[2025-08-31] MEDS: LISINOPRIL 5 MG TAB PO SCH (09:40)
[2025-08-31] MEDS ORDERED: LORazepam 2MG/ML-1ML VIAL IV PRN (10:30)
--- NOTE | 2025-08-31 13:50 | DVHPN2 ---
Subjective Patient denies any symptoms at this time Reviewed: Care Plan, H&P, Labs, Medications, Previous Orders Changes from previous H/P or p: No Changes General: Per HPI Objective Vitals Vital Signs Date Time Temp Pulse Resp B/P (MAP) Pulse Ox O2 Delivery O2 Flow Rate FiO2 08/31/25 10:00 65 16 129/58 (81) 99 08/31/25 08:00 99.0 99.0 08/31/25 07:53 Room Air* 0 21 Intake/Output Intake and Output 08/31/25 07:00 Intake Total 500 ml Balance 500 ml Intake IV Total 500 ml General Appearance: Alert, Oriented X3, Cooperative, mild distress HEENT: Atraumatic, PERRLA Lungs: Clear to auscultation, Normal air movement Cardiovascular: Normal S1, Normal S2 Abdomen: Normal bowel sounds, Soft, No tenderness, No hepatospenomegaly, No masses Musculoskeletal: Normal sensory function, Normal motor function Neuro: Normal gait, Normal speech Psych/Mental Status: Other (Depressed) Medications Current Medications Medications Dose Ordered Sig/Justino Route Start Time Stop Time Status Last Admin Dose Admin Levetiracetam 500 mg BID PO 08/31/25 10:00 08/31/25 09:34 500 MG Hydroxychloroquine Sulfate 200 mg DAILY PO 08/31/25 10:00 08/31/25 09:34 200 MG Lisinopril 10 mg DAILY PO 08/31/25 10:00 Acetaminophen/ Hydrocodone Bitart 1 tab Q4HP PRN PO 08/31/25 00:15 Ondansetron HCl 4 mg Q4HP PRN IV 08/31/25 00:15 Acetaminophen 650 mg Q6HP PRN PO 08/31/25 00:15 Lorazepam 1 mg Q5MINP PRN IV 08/31/25 10:30 Laboratory Results Laboratory Tests 08/30/25 21:00 Chemistry Test 08/30/25 21:00 Albumin 4.1 g/dL (3.2-4.8) Calcium Level 9.3 mg/dL (8.7-10.4) Magnesium Level 2.1 mg/dL (1.6-2.6) Total Protein 7.1 g/dL (5.7-8.2) Lipid panel Test 08/30/25 21:00 Lipase 38 U/L (12-53) Cardiac Markers Test 08/30/25 21:00 B-Type Natriuretic Peptide 76.01 pg/mL (0-100) LFT Test 08/30/25 21:00 Alanine Aminotransferase (ALT) 31 U/L (7-40) Alkaline Phosphatase 102 U/L (46-116) Aspartate Amino Transferase (AST) 42 U/L (13-40) H Total Bilirubin 1.7 mg/dL (0.2-1.0) H Urinalysis Test 08/30/25 20:33 Urine Color Colorless (Yellow) Urine Clarity Clear (Clear) Urine pH 6.0 (5.0-9.0) Urine Specific [place] 1.006 (1.001-1.035) Urine Protein Negative (Negative) Urine Ketones Negative (Negative) Urine Blood Negative /uL (Negative) Urine Nitrite Negative (Negative) Urine Bilirubin Negative (Negative) Urine Urobilinogen Normal mg/dL (Negative) Urine Leukocyte Esterase Negative /uL (Negative) Urine RBC <1 /hpf (0 - 3) Urine Microscopic WBC < 1 /HPF (0-3) Urine Squamous Epithelial Cells Few /hpf (<5) Urine Bacteria None seen /hpf (None Seen) Urine Glucose Normal mg/dL (Normal) Labs and/or images reviewed: Labs reviewed by me, Image(s) reviewed by me Assessment/Plan Assessment/Plan Impression: -metabolic encephalopathy -? Seizure disorder -rheumatoid arthritis -? CLL -pancytopenia -elevated LFTs -suicidal ideation, probable major depressive disorder Plan: -neurology consultation: Recommendations reviewed -right stain -continue hydroxychloroquine -continue Keppra as ordered by Neurology -psychiatry consultation -ammonia level, TSH, vitamin-D, thiamine, folic acid -bedside sitter Total time spent with patient discussing and formulating plan of care: 35 minutes. This medical document was created using an electronic medical record system with [employer] dictation system. Although this document has been carefully reviewed, there may still be some phonetic and typographical errors. These areas are purely typographical due to imperfections of the software programs, and do not reflect any compromise in the patient's medical care. Plan discussed with: Patient, Other (RN) My Orders Orders - SHEILA NARVAEZ [employer] Procedure Category Date Status Time * Psychiatric Consult CONS 08/31/25 Transmitted 12:42 [place] Stain Slide LAB 08/31/25 Verified 13:44 Sitter At Bedside ORDERS 08/31/25 Verified 13:44 Date of Service: Aug 31, 2025 Billing Provider: SHEILA NARVAEZ NP Common Visit Codes: [id number] INP/OBS CARE(HIGH) SHEILA NARVAEZ NP Aug 31, 2025 13:50
--- NOTE | 2025-08-31 15:20 | DVH ---
INDICATION: Elevated LFT TECHNIQUE: Multiple real-time sonographic images were obtained of the right upper quadrant. COMPARISON: None FINDINGS: The liver demonstrates homogenous echotexture without focal mass lesions. The liver measures 14 cm. There is no intrahepatic or extrahepatic ductal dilatation. Common bile duct not visualized The gallbladder is without evidence of stone or sludge. The gallbladder wall measures 0.3mm and is within normal limits. The right kidney measures 12 cm. The right kidney is normal in contour, size, and shape. The echogenicity is normal. There is no hydronephrosis. The pancreas is not well visualized due to overlying bowel gas. IMPRESSION: No sonographic evidence of gallstones or acute cholecystitis.
[2025-08-31 18:51] VITALS: BP 144/65; PULSE 76; RESP 17; TEMP 101.4; O2SAT 99
[2025-08-31 20:13] VITALS: BP 128/75; PULSE 71; RESP 16; TEMP 101.3; O2SAT 99
[2025-08-31 20:35] VITALS: BP 144/65; PULSE 76; RESP 17; TEMP 101.4; O2SAT 99
[2025-08-31] MEDS: ACETAMINOPHEN 325 MG TAB PO PRN (21:04)
[2025-08-31] MEDS ORDERED: ZOLPIDEM TARTRATE 5 MG TAB PO PRN (21:30)
[2025-09-01 05:00] VITALS: BP 90/53; PULSE 55; RESP 16; TEMP 97.6; O2SAT 98
[2025-09-01 06:53] LABS: Calcium 9.6 mg/dL (8.7-10.4); Chloride 106 mmol/L (98-107); Potassium 3.8 mmol/L (3.5-5.1); Sodium 141 mmol/L (136-145)
[2025-09-01 06:54] LABS: Anion Gap 9 (5-15); Carbon Dioxide 26 mmol/L (20-31)
[2025-09-01 06:59] LABS: BUN/Creatinine Ratio 15.3 (10.0-20.0); Glucose 120 mg/dL (74-106)
[2025-09-01 07:00] LABS: Blood Urea Nitrogen 24 mg/dL (9-23)
[2025-09-01 08:43] VITALS: BP 131/74; PULSE 71; RESP 18; TEMP 98.4; O2SAT 96
--- NOTE | 2025-09-01 10:34 | DVHPN2 ---
Subjective Patient denies any symptoms at this time Reviewed: Care Plan, H&P, Labs, Medications, Previous Orders Changes from previous H/P or p: No Changes General: Per HPI Objective Vitals Vital Signs Date Time Temp Pulse Resp B/P (MAP) Pulse Ox O2 Delivery O2 Flow Rate FiO2 09/01/25 09:25 131/74 09/01/25 08:43 98.4 71 18 96 98.4 08/31/25 18:52 Room Air* 0 21 Intake/Output Intake and Output 09/01/25 07:00 Intake Total 240 ml Balance 240 ml Intake Oral 240 ml # Voids 5 General Appearance: Alert, Oriented X3, Cooperative, mild distress HEENT: Atraumatic, PERRLA Lungs: Clear to auscultation, Normal air movement Cardiovascular: Normal S1, Normal S2 Abdomen: Normal bowel sounds, Soft, No tenderness, No hepatospenomegaly, No masses Musculoskeletal: Normal sensory function, Normal motor function Neuro: Normal gait, Normal speech Psych/Mental Status: Other (Depressed) Medications Current Medications Medications Dose Ordered Sig/Justino Route Start Time Stop Time Status Last Admin Dose Admin Levetiracetam 500 mg BID PO 08/31/25 10:00 09/01/25 09:23 500 MG Hydroxychloroquine Sulfate 200 mg DAILY PO 08/31/25 10:00 09/01/25 09:24 200 MG Lisinopril 10 mg DAILY PO 08/31/25 10:00 09/01/25 09:25 10 MG Acetaminophen/ Hydrocodone Bitart 1 tab Q4HP PRN PO 08/31/25 00:15 Ondansetron HCl 4 mg Q4HP PRN IV 08/31/25 00:15 Acetaminophen 650 mg Q6HP PRN PO 08/31/25 00:15 08/31/25 21:04 650 MG Lorazepam 1 mg Q5MINP PRN IV 08/31/25 10:30 Zolpidem Tartrate 10 mg HSPRN PRN PO 08/31/25 21:30 UNV Cefepime HCl 50 ml @ 12.5 mls/hr Q8HR IV 09/01/25 14:00 UNV Laboratory Results Laboratory Tests 08/30/25 21:00 09/01/25 06:00 Chemistry Test 09/01/25 06:00 Calcium Level 9.6 mg/dL (8.7-10.4) HgA1c, TSH Test 08/31/25 14:23 Thyroid Stimulating Hormone (TSH) 0.99 uIU/mL (0.55-4.78) Urinalysis Test 08/30/25 20:33 Urine Color Colorless (Yellow) Urine Clarity Clear (Clear) Urine pH 6.0 (5.0-9.0) Urine Specific [place] 1.006 (1.001-1.035) Urine Protein Negative (Negative) Urine Ketones Negative (Negative) Urine Blood Negative /uL (Negative) Urine Nitrite Negative (Negative) Urine Bilirubin Negative (Negative) Urine Urobilinogen Normal mg/dL (Negative) Urine Leukocyte Esterase Negative /uL (Negative) Urine RBC <1 /hpf (0 - 3) Urine Microscopic WBC < 1 /HPF (0-3) Urine Squamous Epithelial Cells Few /hpf (<5) Urine Bacteria None seen /hpf (None Seen) Urine Glucose Normal mg/dL (Normal) Microbiology Microbiology Date/Time Source Procedure Growth Status 08/30/25 21:05 Blood Blood Culture - Preliminary NO GROWTH AFTER 24 HOURS OF INCUBATION. Resulted Labs and/or images reviewed: Labs reviewed by me, Image(s) reviewed by me Assessment/Plan Assessment/Plan Impression: -metabolic encephalopathy -? Seizure disorder -rheumatoid arthritis -? CLL -pancytopenia -elevated LFTs -suicidal ideation, probable major depressive disorder Plan: Events: Patient is febrile with T-max 101.4. Blood cultures pending. Influenza and COVID-19 serology negative. -neurology consultation: Recommendations reviewed -start cefepime 1 g -continue hydroxychloroquine -continue Keppra as ordered by Neurology -psychiatry consultation: Pending -ammonia level, TSH, vitamin-D, thiamine, folic acid -bedside sitter Total time spent with patient discussing and formulating plan of care: 35 minutes. This medical document was created using an electronic medical record system with [employer] dictation system. Although this document has been carefully reviewed, there may still be some phonetic and typographical errors. These areas are purely typographical due to imperfections of the software programs, and do not reflect any compromise in the patient's medical care. Plan discussed with: Patient, Other (RN) My Orders Orders - SHEILA NARVAEZ NP Procedure Category Date Status Time * Psychiatric Consult CONS 08/31/25 Transmitted 12:42 Sitter At Bedside ORDERS 08/31/25 Transmitted 13:44 Vitamin B1 (Thiamine) LAB 08/31/25 In Process 13:46 Vitamin D 25-Hydroxy LAB 08/31/25 In Process D2 + D3 13:46 Vitamin B6 LAB 08/31/25 In Process 13:46 LIVER US 08/31/25 Resulted 13:47 Erythrocyte LAB 09/01/25 Logged Sedimentation Rate 10:24 C-Reactive Protein LAB 09/01/25 Logged 10:24 Cefepime 1gm/50ml PHA 09/01/25 Logged (Maxipime 1gm/50ml) 14:00 Complete Blood Count LAB 09/02/25 Verified 05:00 Complete Blood Count LAB 09/03/25 Verified 05:00 Complete Blood Count LAB 09/04/25 Verified 05:00 Basic Metabolic Panel LAB 09/02/25 Verified 05:00 Basic Metabolic Panel LAB 09/03/25 Verified 05:00 Basic Metabolic Panel LAB 09/04/25 Verified 05:00 Date of Service: Sep 01, 2025 Billing Provider: SHEILA NARVAEZ NP Common Visit Codes: [id number] INP/OBS CARE(HIGH) SHEILA NARVAEZ NP Sep 01, 2025 10:34
--- NOTE | 2025-09-01 11:12 | DVHINCON2 ---
Date of Service if different f: Sep 01, 2025 Time of Service: 11:10 Consultation ([facility]) Labs Laboratory Tests Test 08/30/25 20:17 08/30/25 20:33 08/30/25 21:00 08/30/25 22:20 Bedside Glucose 106 mg/dl (70-106) Urine Color Colorless (Yellow) Urine Clarity Clear (Clear) Urine pH 6.0 (5.0-9.0) Urine Specific [place] 1.006 (1.001-1.035) Urine Protein Negative (Negative) Urine Ketones Negative (Negative) Urine Blood Negative /uL (Negative) Urine Nitrite Negative (Negative) Urine Bilirubin Negative (Negative) Urine Urobilinogen Normal mg/dL (Negative) Urine Leukocyte Esterase Negative /uL (Negative) Urine RBC <1 /hpf (0 - 3) Urine Microscopic WBC < 1 /HPF (0-3) Urine Squamous Epithelial Cells Few /hpf (<5) Urine Bacteria None seen /hpf (None Seen) Urine Glucose Normal mg/dL (Normal) Urine Opiates Screen Neg (NEGATIVE) Urine Fentanyl Screen Neg (NEGATIVE) Urine Barbiturates Screen Neg (NEGATIVE) Urine Phencyclidine Screen Neg (NEGATIVE) Urine Amphetamines Screen Neg (NEGATIVE) Urine Benzodiazepines Screen Neg (NEGATIVE) Urine Cocaine Screen Neg (NEGATIVE) Urine Cannabinoids Screen Neg (NEGATIVE) White Blood Count 1.3 10^3/uL (4.4-10.8) Red Blood Count 3.86 10^6/uL (4.5-5.90) Hemoglobin 11.6 g/dL (13.5-17.5) Hematocrit 33.3 % (41.0-53.0) Mean Corpuscular Volume 86.2 fL (80.0-100.0) Mean Corpuscular Hemoglobin 30.0 pg (28.0-32.0) Mean Corpuscular Hemoglobin Concent 34.9 g/dL (32.0-36.0) Red Cell Distribution Width 14.6 % (11.8-14.3) Platelet Count 122 10^3/uL (140-450) Mean Platelet Volume 7.5 fL (6.9-10.8) Neutrophils (%) (Auto) % (37.0-80.0) Lymphocytes (%) (Auto) % (10.0-50.0) Monocytes (%) (Auto) % (0.0-12.0) Basophils (%) (Auto) % (0.0-2.0) Neutrophils # (Auto) 10 ^3/uL (1.6-8.6) Lymphocytes # (Auto) 10 ^3/uL (0.4-5.4) Monocytes # (Auto) 10 ^3/uL (0-1.3) Differential Total Cells Counted 100.0 (100) Neutrophils % (Manual) 40 (37.0-80.0) Band Neutrophils % (Manual) 0 Lymphocytes % (Manual) 45 (10.0-50.0) Monocytes % (Manual) 15 (0-12) Eosinophils % (Manual) 0 (0-7) Basophils % (Manual) 0 (0.0-2.0) Metamyelocytes % (manual) 0 Myelocytes % (Manual) 0 Promyelocytes % (Manual) 0 Blast Cells % (Manual) 0 Reactive Lymphocytes 0 Platelet Estimate Decreased Large Platelets Few Lactic Acid Level 0.9 mmol/L (0.4-2.0) Magnesium Level 2.1 mg/dL (1.6-2.6) Total Bilirubin 1.7 mg/dL (0.2-1.0) Aspartate Amino Transf (AST/SGOT) 42 U/L (13-40) Alanine Aminotransferase (ALT/SGPT) 31 U/L (7-40) Alkaline Phosphatase 102 U/L (46-116) B-Type Natriuretic Peptide 76.01 pg/mL (0-100) Total Protein 7.1 g/dL (5.7-8.2) Albumin 4.1 g/dL (3.2-4.8) Lipase 38 U/L (12-53) Plasma/Serum Blood Alcohol < 3.0 mg/dL (<10) Troponin I High Sensitivity 11 ng/L (</=54) Test 08/30/25 22:50 08/31/25 14:23 09/01/25 06:00 Influenza Type A Antigen Negative (Negative) Influenza Type B Antigen Negative (Negative) SARS-CoV-2 Antigen (Rapid) Negative (NEGATIVE) Ammonia < 10 umol/L (11-32) Vitamin B12 Level 288 pg/mL (211-911) Thyroid Stimulating Hormone (TSH) 0.99 uIU/mL (0.55-4.78) Sodium Level 141 mmol/L (136-145) Potassium Level 3.8 mmol/L (3.5-5.1) Chloride Level 106 mmol/L (98-107) Carbon Dioxide Level 26 mmol/L (20-31) Anion Gap 9 (5-15) Blood Urea Nitrogen 24 mg/dL (9-23) Creatinine 1.57 mg/dL (0.700-1.30) Glomerular Filtration Rate Calc 45 mL/min (>90) BUN/Creatinine Ratio 15.3 (10.0-20.0) Serum Glucose 120 mg/dL (74-106) Calcium Level 9.6 mg/dL (8.7-10.4) Microbiology Date/Time Source Procedure Growth Status 08/30/25 21:05 Blood Blood Culture - Preliminary NO GROWTH AFTER 24 HOURS OF INCUBATION. Resulted Vitals Vital Signs Date Time Temp Pulse Resp B/P (MAP) Pulse Ox O2 Delivery O2 Flow Rate FiO2 09/01/25 09:25 131/74 09/01/25 08:43 98.4 71 18 96 98.4 08/31/25 18:52 Room Air* 0 21 Current medications Current Medications Medications Dose Ordered Sig/Justino Route Start Time Stop Time Status Last Admin Dose Admin Levetiracetam 500 mg BID PO 08/31/25 10:00 09/01/25 09:23 500 MG Hydroxychloroquine Sulfate 200 mg DAILY PO 08/31/25 10:00 09/01/25 09:24 200 MG Lisinopril 10 mg DAILY PO 08/31/25 10:00 09/01/25 09:25 10 MG Acetaminophen/ Hydrocodone Bitart 1 tab Q4HP PRN PO 08/31/25 00:15 Ondansetron HCl 4 mg Q4HP PRN IV 08/31/25 00:15 Acetaminophen 650 mg Q6HP PRN PO 08/31/25 00:15 08/31/25 21:04 650 MG Lorazepam 1 mg Q5MINP PRN IV 08/31/25 10:30 Zolpidem Tartrate 10 mg HSPRN PRN PO 08/31/25 21:30 UNV Cefepime HCl 50 ml @ 12.5 mls/hr Q8HR IV 09/01/25 14:00 UNV PSYCHIATRY CONSULTATION BRIEF NOTE Attempted to see patient via tele. However, he declined interview due to lack of privacy. RN instructed to outreach whenever pt amenable to consult. EDEL CLANCY MD Sep 01, 2025 11:12
[2025-09-01] MEDS: CEFEPIME 1GM/50ML 50 ML IV ONE (12:13)
[2025-09-01 13:00] VITALS: BP 108/56; PULSE 66; RESP 20; TEMP 100.8; O2SAT 96
[2025-09-01 16:53] VITALS: BP 120/66; PULSE 70; RESP 18; TEMP 99.4; O2SAT 96
[2025-09-01 20:00] VITALS: PULSE 78; RESP 18; O2SAT 96
[2025-09-01 21:00] VITALS: BP 104/63; PULSE 78; RESP 18; TEMP 97.9; O2SAT 96
[2025-09-01] MEDS: CEFEPIME 1GM/50ML 50 ML IV SCH (21:52)
--- NOTE | 2025-09-01 23:10 | DVHPN2 ---
Progress Note - Dictate Date Seen: Sep 01, 2025 Medical Necessity Reason Pt with a Central, PICC or Fol: No Subjective Mr. Dhillon is a 75 years older left-handed gentleman with a history of hypertension, diabetes, leukemia, arthritis, he came to the [facility] on 08/30/25 with a chief complaint of confusion and headache. I saw him on 09/26/2024 for cognitive decline, 07/03/2025 for ALOC I have seen examined the patient, I have talked his nurse and sitter, he is alert, oriented x3, no new company RPR, 09/26/2024: Negative UDS, 09/25/2024: Negative, 07/02/2025: Negative Plasma alcohol, 09/25/2024: < 3, 08/30/2025: <3 WBC/HB/PLT/MCV, 07/03/2025: 1.8/11.7/92/88, 07/05/2025: 1.5/12.1/101/88, 08/30/2025: 1.3/11.6/122/11.6 BUN/CR, 09/25/24: 22/1.54, 07/03/2025: 23/1, 08/30/2025: 20/1.74 GFR, 07/03/2025: 57, 08/30/2025: 40 TBI/AST/ALT/AP, 09/25/2024: 1.4/36/37/108, 07/02/2025: 1.4/44/29/99, 08/30/2025: 1.7/42/31/102 HGB A1c, 09/26/2024: 5.8 Vitamin B12, 09/26/2024:350 Folic acid, 09/26/2024: 12.95 TSH, 09/26/2020 4:1446 Carotid Doppler, 09/26/2024: No hemodynamically significant stenosis within the carotid arteries CT head, 09/25/2024: No acute intracranial abnormality CT head, 07/02/2025: 1. No acute territorial infarct, intracranial hemorrhage, or mass effect. 2. Age-related involutional changes. Chronic microvascular changes. 3. If clinical symptoms persist, MRI may be beneficial in further evaluation. CT head, 08/30/2025: No CT evidence of an acute intracranial abnormality. MRI head, 09/26/2024: 1. There is no acute intracranial process. 2. Chronic right maxillary sinus disease MRI head, 07/02/2025: 1. No evidence of acute intracranial abnormality. 2. Nonacute findings as described above. 3. Right maxillary sinusitis. vital signs Vital Sign Date Time Temp Pulse Resp B/P (MAP) Pulse Ox O2 Delivery O2 Flow Rate FiO2 09/01/25 21:00 97.9 78 18 104/63 (77) 96 97.9 09/01/25 08:00 Room Air* 0 21 Total Intake and Output 08/31/25 08/31/25 09/01/25 15:00 23:00 07:00 Intake Total 240 ml Balance 240 ml medications Current Medications Medications Dose Ordered Sig/Justino Route Start Time Stop Time Status Last Admin Dose Admin Levetiracetam 500 mg BID PO 08/31/25 10:00 09/01/25 21:52 500 MG Hydroxychloroquine Sulfate 200 mg DAILY PO 08/31/25 10:00 09/01/25 09:24 200 MG Lisinopril 10 mg DAILY PO 08/31/25 10:00 09/01/25 09:25 10 MG Acetaminophen/ Hydrocodone Bitart 1 tab Q4HP PRN PO 08/31/25 00:15 Ondansetron HCl 4 mg Q4HP PRN IV 08/31/25 00:15 Acetaminophen 650 mg Q6HP PRN PO 08/31/25 00:15 09/01/25 20:59 650 MG Lorazepam 1 mg Q5MINP PRN IV 08/31/25 10:30 Zolpidem Tartrate 10 mg HSPRN PRN PO 08/31/25 21:30 UNV Cefepime HCl 50 ml @ 12.5 mls/hr Q12HR IV 09/01/25 22:00 09/01/25 21:52 12.5 MLS/HR objective General: the patient is well developed and nourished. No acute distress. MENTAL STATUS: Awake and alert. Oriented to person, place, time and general circumstances. Able to give personal history. SPEECH, LANGUAGE, HIGHER CORTICAL FUNCTION: no aphasia or dysathria. CRANIAL NERVES: Pupils are equal, round and reactive. EOMs full and conjugate. No nystagmus. Facial sensation intact in all three divisions bilaterally. Mandibular strength intact. Facial muscles symmetrical and strength intact. SENSATION: Sensation to touch and pinprick is normal. MOTOR: Normal tone in the upper and lower extremity. Normal muscle bulk. No fasciculations. No abnormal movements or posturing. Muscle strength of the major groups in the extremities is 5/5. REFLEXES: Deep tendon reflexes normal and symmetrical. No pathological reflexes. CEREBELLAR/COORDINATION: Finger to nose, [id number] are normal bilaterally. GAIT/STATION: deferred. laboratory and microbiology Laboratory Tests 09/01/25 06:00 08/30/25 21:00 Test 09/01/25 06:00 Range/Units Serum Glucose 120 H 74-106 mg/dL Problem List Confusional spells Partial complex seizure Transient global amnesia Olfactory hallucination Partial simple seizure Gustatory hallucination Partial simple seizure Family history of dementia Assessment/Plan Monitoring Supportive treatments Telemetry EEG Keppra 500 mg b.i.d. Ativan for Seizure breakthrough Service Re: Living alone, can not drive DMV report filed a last hospitalization He has been advised not drive and he is cleared Follow with me and his family doctors on discharge This medical document was created using an electronic medical record system with [employer] computerized dictation system. Although this document has been carefully reviewed, there may still be some phonetic and typographical errors. These areas are purely typographical due to imperfections of the software programs, and do not reflect any compromise in the patient's medical care. Prognosis poor Plan discussed with: Patient, Other Total Time (mins): 35 VANDANA JOHNSON MD Sep 01, 2025 23:10
[2025-09-02] VITALS (8 sets, daily range): BP systolic 104–133; BP diastolic 47–80; PULSE 55–80; RESP 16–19; TEMP 97.6–99.3; O2SAT 96–99
[2025-09-02 05:34] LABS: Hemoglobin 11.0 g/dL (13.5-17.5); Mean Corpuscular Volume 88.0 fL (80.0-100.0)
[2025-09-02 05:37] LABS: Hematocrit 31.5 % (41.0-53.0); Mean Corpuscular Hemoglobin 30.8 pg (28.0-32.0)
[2025-09-02 05:42] LABS: Chloride 105 mmol/L (98-107); Potassium 4.1 mmol/L (3.5-5.1); Sodium 140 mmol/L (136-145)
[2025-09-02 05:43] LABS: Anion Gap 8 (5-15); Calcium 9.7 mg/dL (8.7-10.4); Carbon Dioxide 27 mmol/L (20-31)
[2025-09-02 05:49] LABS: BUN/Creatinine Ratio 13.9 (10.0-20.0); Blood Urea Nitrogen 26 mg/dL (9-23); Glucose 181 mg/dL (74-106)
[2025-09-02 06:25] LABS: Total Cells Counted 100.0 (100)
--- NOTE | 2025-09-02 10:21 | DVHPN2 ---
Progress Note - Dictate Date Seen: Sep 02, 2025 Medical Necessity Reason Pt with a Central, PICC or Fol: No Subjective Mr. Dhillon is a 75 years older left-handed gentleman with a history of hypertension, diabetes, leukemia, arthritis, he came to the [facility] on 08/30/25 with a chief complaint of confusion and headache. I saw him on 09/26/2024 for cognitive decline, 07/03/2025 for ALOC I have seen examined the patient, I have talked his nurse and sitter, he is alert, oriented x3, no new company He presented with symptoms of depression, tele psych consultation pending RPR, 09/26/2024: Negative UDS, 09/25/2024: Negative, 07/02/2025: Negative Plasma alcohol, 09/25/2024: < 3, 08/30/2025: <3 WBC/HB/PLT/MCV, 07/03/2025: 1.8/11.7/92/88, 07/05/2025: 1.5/12.1/101/88, 08/30/2025: 1.3/11.6/122/11.6 BUN/CR, 09/25/24: 22/1.54, 07/03/2025: 23/1, 08/30/2025: 20/1.74 GFR, 07/03/2025: 57, 08/30/2025: 40 TBI/AST/ALT/AP, 09/25/2024: 1.4/36/37/108, 07/02/2025: 1.4/44/29/99, 08/30/2025: 1.7/42/31/102 HGB A1c, 09/26/2024: 5.8 Vitamin B12, 09/26/2024:350 Folic acid, 09/26/2024: 12.95 TSH, 09/26/2020 4:1446 Carotid Doppler, 09/26/2024: No hemodynamically significant stenosis within the carotid arteries CT head, 09/25/2024: No acute intracranial abnormality CT head, 07/02/2025: 1. No acute territorial infarct, intracranial hemorrhage, or mass effect. 2. Age-related involutional changes. Chronic microvascular changes. 3. If clinical symptoms persist, MRI may be beneficial in further evaluation. CT head, 08/30/2025: No CT evidence of an acute intracranial abnormality. MRI head, 09/26/2024: 1. There is no acute intracranial process. 2. Chronic right maxillary sinus disease MRI head, 07/02/2025: 1. No evidence of acute intracranial abnormality. 2. Nonacute findings as described above. 3. Right maxillary sinusitis. vital signs Vital Sign Date Time Temp Pulse Resp B/P (MAP) Pulse Ox O2 Delivery O2 Flow Rate FiO2 09/02/25 10:09 105/59 09/02/25 08:39 99.0 71 16 98 99.0 09/01/25 20:00 Room Air* 0 21 Total Intake and Output 09/01/25 09/01/25 09/02/25 15:00 23:00 07:00 Intake Total 900 ml 850 ml Output Total 300 ml Balance 600 ml 850 ml medications Current Medications Medications Dose Ordered Sig/Justino Route Start Time Stop Time Status Last Admin Dose Admin Levetiracetam 500 mg BID PO 08/31/25 10:00 09/02/25 10:10 500 MG Hydroxychloroquine Sulfate 200 mg DAILY PO 08/31/25 10:00 09/02/25 10:10 200 MG Lisinopril 10 mg DAILY PO 08/31/25 10:00 09/02/25 10:09 10 MG Acetaminophen/ Hydrocodone Bitart 1 tab Q4HP PRN PO 08/31/25 00:15 Ondansetron HCl 4 mg Q4HP PRN IV 08/31/25 00:15 Acetaminophen 650 mg Q6HP PRN PO 08/31/25 00:15 09/01/25 20:59 650 MG Lorazepam 1 mg Q5MINP PRN IV 08/31/25 10:30 Zolpidem Tartrate 10 mg HSPRN PRN PO 08/31/25 21:30 UNV Cefepime HCl 50 ml @ 12.5 mls/hr Q12HR IV 09/01/25 22:00 09/02/25 10:10 12.5 MLS/HR objective General: the patient is well developed and nourished. No acute distress. MENTAL STATUS: Awake and alert. Oriented to person, place, time and general circumstances. Able to give personal history. SPEECH, LANGUAGE, HIGHER CORTICAL FUNCTION: no aphasia or dysathria. CRANIAL NERVES: Pupils are equal, round and reactive. EOMs full and conjugate. No nystagmus. Facial sensation intact in all three divisions bilaterally. Mandibular strength intact. Facial muscles symmetrical and strength intact. SENSATION: Sensation to touch and pinprick is normal. MOTOR: Normal tone in the upper and lower extremity. Normal muscle bulk. No fasciculations. No abnormal movements or posturing. Muscle strength of the major groups in the extremities is 5/5. REFLEXES: Deep tendon reflexes normal and symmetrical. No pathological reflexes. CEREBELLAR/COORDINATION: Finger to nose, [id number] are normal bilaterally. GAIT/STATION: deferred. laboratory and microbiology Laboratory Tests 09/02/25 04:53 Test 09/02/25 04:53 Range/Units Serum Glucose 181 H 74-106 mg/dL Problem List Confusional spells Partial complex seizure Transient global amnesia Olfactory hallucination Partial simple seizure Gustatory hallucination Partial simple seizure Family history of dementia Depression Assessment/Plan Monitoring Supportive treatments Telemetry EEG Keppra 500 mg b.i.d. Ativan for Seizure breakthrough Service Re: Living alone, can not drive DMV report filed a last hospitalization He has been advised not drive and he is cleared Tele psych consultation Follow with me and his family doctors on discharge This medical document was created using an electronic medical record system with [employer] dictation system. Although this document has been carefully reviewed, there may still be some phonetic and typographical errors. These areas are purely typographical due to imperfections of the software programs, and do not reflect any compromise in the patient's medical care. Prognosis poor Plan discussed with: Patient, Other Total Time (mins): 35 VANDANA JOHNSON MD Sep 02, 2025 10:21
--- NOTE | 2025-09-02 10:47 | DVHEEG2 ---
Neurology EEG Procedural Note Procedural Note EXAM DATE: 09/01/2025 REFERRING DOCTOR: Dr. Johnson TECHNIQUE: Eighteen channels of EEG, 2 channels of EOG, and 1 channel of EKG were recorded using the International 10/20 system. CLINICAL DATA: The patient was referred for an EEG evaluation for the evidence of seizure disorder. MEDICATIONS: See the chart BACKGROUND ACTIVITY: While the patient was awake, the background activity consisted of well regulated 9 Hz rhythmic waveforms, symmetrically distributed over both posterior quadrants and was reactive to eye opening. ACTIVATION: Hyperventilation: Not done Photic Stimulation: No photic convulsive response Sleep: Noticed IMPRESSION: This is a normal EEG. No focal, lateralized, or epileptiform features are noted. If clinically indicated to rule out a seizure disorder, recommend repeat EEG with sleep deprivation. The EKG channel showed a regular heart rate of 66/[place] [address] VANDANA JOHNSON MD Sep 02, 2025 10:47
--- NOTE | 2025-09-02 12:27 | DVHPN2 ---
Reviewed: Care Plan, H&P, Labs, Medications, Previous Orders Changes from previous H/P or p: No Changes General: Per HPI Respiratory: Cough Objective Vitals Vital Signs Date Time Temp Pulse Resp B/P (MAP) Pulse Ox O2 Delivery O2 Flow Rate FiO2 09/02/25 10:09 105/59 09/02/25 08:39 99.0 71 16 98 99.0 09/02/25 08:00 Room Air* 0 21 Intake/Output Intake and Output 09/02/25 07:00 Intake Total 1750 ml Output Total 300 ml Balance 1450 ml Intake Oral 1700 ml IV Total 50 ml Output Urine Total 300 ml # Voids 8 General Appearance: Alert, Oriented X3, Cooperative, mild distress HEENT: Atraumatic, PERRLA Lungs: Clear to auscultation, Normal air movement Cardiovascular: Normal S1, Normal S2 Abdomen: Normal bowel sounds, Soft, No tenderness, No hepatospenomegaly, No masses Musculoskeletal: Normal sensory function, Normal motor function Neuro: Normal gait, Normal speech Psych/Mental Status: Other (Depressed) Medications Current Medications Medications Dose Ordered Sig/Justino Route Start Time Stop Time Status Last Admin Dose Admin Levetiracetam 500 mg BID PO 08/31/25 10:00 09/02/25 10:10 500 MG Hydroxychloroquine Sulfate 200 mg DAILY PO 08/31/25 10:00 09/02/25 10:10 200 MG Lisinopril 10 mg DAILY PO 08/31/25 10:00 09/02/25 10:09 10 MG Acetaminophen/ Hydrocodone Bitart 1 tab Q4HP PRN PO 08/31/25 00:15 Ondansetron HCl 4 mg Q4HP PRN IV 08/31/25 00:15 Acetaminophen 650 mg Q6HP PRN PO 08/31/25 00:15 09/01/25 20:59 650 MG Lorazepam 1 mg Q5MINP PRN IV 08/31/25 10:30 Zolpidem Tartrate 10 mg HSPRN PRN PO 08/31/25 21:30 UNV Cefepime HCl 50 ml @ 12.5 mls/hr Q12HR IV 09/01/25 22:00 09/02/25 10:10 12.5 MLS/HR Laboratory Results Laboratory Tests 09/02/25 04:53 Chemistry Test 09/02/25 04:53 Calcium Level 9.7 mg/dL (8.7-10.4) Urinalysis Test 08/30/25 20:33 Urine Color Colorless (Yellow) Urine Clarity Clear (Clear) Urine pH 6.0 (5.0-9.0) Urine Specific [place] 1.006 (1.001-1.035) Urine Protein Negative (Negative) Urine Ketones Negative (Negative) Urine Blood Negative /uL (Negative) Urine Nitrite Negative (Negative) Urine Bilirubin Negative (Negative) Urine Urobilinogen Normal mg/dL (Negative) Urine Leukocyte Esterase Negative /uL (Negative) Urine RBC <1 /hpf (0 - 3) Urine Microscopic WBC < 1 /HPF (0-3) Urine Squamous Epithelial Cells Few /hpf (<5) Urine Bacteria None seen /hpf (None Seen) Urine Glucose Normal mg/dL (Normal) Microbiology Microbiology Date/Time Source Procedure Growth Status 08/30/25 21:05 Blood Blood Culture - Preliminary NO GROWTH AFTER 48 HOURS OF INCUBATION. Resulted Labs and/or images reviewed: Labs reviewed by me, Image(s) reviewed by me Assessment/Plan Assessment/Plan Impression: -metabolic encephalopathy -? Seizure disorder -rheumatoid arthritis -? CLL -pancytopenia -elevated LFTs -suicidal ideation, probable major depressive disorder Plan: Events: Patient T-max 99.0. Blood cultures negative. Influenza and COVID-19 serology negative. -neurology consultation: Recommendations reviewed -continue cefepime 1 g -continue hydroxychloroquine -continue Keppra as ordered by Neurology -psychiatry consultation: pending -vitamin-D, thiamine, folic acid pending -blood smear pending -will contact family regarding outpatient bone marrow biopsy -Robitussin for cough -CT chest W/O r/o infectious process -bedside sitter Plan discussed with: Patient Date of Service: Sep 02, 2025 Billing Provider: SHEILA NARVAEZ WELDER APPRENTICE Common Visit Codes: [id number] INP/OBS CARE(HIGH) TERRY HENDRICKSON STUDENT WELDER APPRENTICE Sep 02, 2025 12:27
--- NOTE | 2025-09-02 14:53 | DVH ---
Indication: COUGH Technique: CT axial images of the chest are obtained without contrast. Coronal and sagittal reformats were obtained. Radiation Dose Information: CTDI volume is 10.22 mGy. Dose-length product is 359.73 mGy*cm Comparison: None FINDINGS: The trachea is patent. No pneumothorax. There is no pulmonary airspace consolidation. 2 mm left lower lobe calcified nodule consistent with remote granulomatous disease. Heart size at the upper limits of normal. 8 mm right thyroid nodule. No supraclavicular, axillary lymphadenopathy. Spleen measures 13 cm AP. Gastric distention. Cholelithiasis. No aggressive osseous process. IMPRESSION: No pulmonary airspace consolidation. Subcentimeter right thyroid nodule which can be further evaluated with thyroid ultrasound in the nonemergent setting. Splenomegaly. Gastric distention. Cholelithiasis.
[2025-09-02] MEDS: guaiFENesin-DM 100/10mg/5ml SYR PO PRN (15:37)
[2025-09-02] MEDS: SODIUM CHLORIDE 0.9% 1,000 ML IV SCH (16:27)
[2025-09-03 00:56] VITALS: BP 128/74; PULSE 70; RESP 19; TEMP 99.7; O2SAT 96
[2025-09-03 05:41] VITALS: BP 115/74; PULSE 70; RESP 20; TEMP 98.5; O2SAT 20
[2025-09-03 06:59] LABS: Hematocrit 31.5 % (41.0-53.0); Hemoglobin 10.8 g/dL (13.5-17.5); Mean Corpuscular Hemoglobin 30.1 pg (28.0-32.0); Mean Corpuscular Volume 87.8 fL (80.0-100.0)
[2025-09-03 07:08] LABS: Potassium 5.0 mmol/L (3.5-5.1); Sodium 144 mmol/L (136-145)
[2025-09-03 07:09] LABS: Anion Gap 5 (5-15); Calcium 9.6 mg/dL (8.7-10.4); Carbon Dioxide 27 mmol/L (20-31)
[2025-09-03 07:14] LABS: BUN/Creatinine Ratio 13.9 (10.0-20.0)
[2025-09-03 07:15] LABS: Blood Urea Nitrogen 23 mg/dL (9-23); Chloride 112 mmol/L (98-107); Glucose 131 mg/dL (74-106)
[2025-09-03 08:54] LABS: Nucleated Red Blood Cells % 1.0 %; Total Cells Counted 100.0 (100)
[2025-09-03 09:30] VITALS: BP 113/59; PULSE 63; RESP 18; TEMP 97.4; O2SAT 97
--- NOTE | 2025-09-03 10:25 | DVHPN2 ---
Progress Note - Dictate Date Seen: Sep 03, 2025 Medical Necessity Reason Pt with a Central, PICC or Fol: No Subjective Mr. Dhillon is a 75 years older left-handed gentleman with a history of hypertension, diabetes, leukemia, arthritis, he came to the [facility] on 08/30/25 with a chief complaint of confusion and headache. I saw him on 09/26/2024 for cognitive decline, 07/03/2025 for ALOC I have seen examined the patient, I have talked his nurse and sitter, he is alert, oriented x3, no new company He agreed to have tele psych consultation in his room, not necessarily a a private room RPR, 09/26/2024: Negative UDS, 09/25/2024: Negative, 07/02/2025: Negative Plasma alcohol, 09/25/2024: < 3, 08/30/2025: <3 WBC/HB/PLT/MCV, 07/03/2025: 1.8/11.7/92/88, 07/05/2025: 1.5/12.1/101/88, 08/30/2025: 1.3/11.6/122/11.6 BUN/CR, 09/25/24: 22/1.54, 07/03/2025: 23/1, 08/30/2025: 20/1.74 GFR, 07/03/2025: 57, 08/30/2025: 40 TBI/AST/ALT/AP, 09/25/2024: 1.4/36/37/108, 07/02/2025: 1.4/44/29/99, 08/30/2025: 1.7/42/31/102 HGB A1c, 09/26/2024: 5.8 Vitamin B12, 09/26/2024:350 Folic acid, 09/26/2024: 12.95 TSH, 09/26/2020 4:1446 EEG, 09/01/2025: Normal Carotid Doppler, 09/26/2024: No hemodynamically significant stenosis within the carotid arteries CT head, 09/25/2024: No acute intracranial abnormality CT head, 07/02/2025: 1. No acute territorial infarct, intracranial hemorrhage, or mass effect. 2. Age-related involutional changes. Chronic microvascular changes. 3. If clinical symptoms persist, MRI may be beneficial in further evaluation. CT head, 08/30/2025: No CT evidence of an acute intracranial abnormality. MRI head, 09/26/2024: 1. There is no acute intracranial process. 2. Chronic right maxillary sinus disease MRI head, 07/02/2025: 1. No evidence of acute intracranial abnormality. 2. Nonacute findings as described above. 3. Right maxillary sinusitis. vital signs Vital Sign Date Time Temp Pulse Resp B/P (MAP) Pulse Ox O2 Delivery O2 Flow Rate FiO2 09/03/25 10:16 113/59 09/03/25 05:41 98.5 70 20 20 98.5 09/02/25 20:10 Room Air* 0 21 Total Intake and Output 09/02/25 09/02/25 09/03/25 15:00 23:00 07:00 Intake Total 50 ml 450 ml 550 ml Output Total 3 ml Balance 50 ml 450 ml 547 ml medications Current Medications Medications Dose Ordered Sig/Justino Route Start Time Stop Time Status Last Admin Dose Admin Levetiracetam 500 mg BID PO 08/31/25 10:00 09/03/25 10:15 500 MG Hydroxychloroquine Sulfate 200 mg DAILY PO 08/31/25 10:00 09/03/25 10:16 200 MG Lisinopril 10 mg DAILY PO 08/31/25 10:00 09/03/25 10:16 10 MG Acetaminophen/ Hydrocodone Bitart 1 tab Q4HP PRN PO 08/31/25 00:15 Ondansetron HCl 4 mg Q4HP PRN IV 08/31/25 00:15 Acetaminophen 650 mg Q6HP PRN PO 08/31/25 00:15 09/03/25 01:03 650 MG Lorazepam 1 mg Q5MINP PRN IV 08/31/25 10:30 Zolpidem Tartrate 10 mg HSPRN PRN PO 08/31/25 21:30 UNV Cefepime HCl 50 ml @ 12.5 mls/hr Q12HR IV 09/01/25 22:00 09/03/25 10:14 12.5 MLS/HR Guaifenesin/ Dextromethorphan 10 ml Q4HP PRN PO 09/02/25 12:15 09/02/25 15:37 10 ML Sodium Chloride 1,000 ml @ 100 mls/hr Q10H IV 09/02/25 13:30 09/03/25 10:15 100 MLS/HR objective General: the patient is well developed and nourished. No acute distress. MENTAL STATUS: Awake and alert. Oriented to person, place, time and general circumstances. Able to give personal history. SPEECH, LANGUAGE, HIGHER CORTICAL FUNCTION: no aphasia or dysathria. CRANIAL NERVES: Pupils are equal, round and reactive. EOMs full and conjugate. No nystagmus. Facial sensation intact in all three divisions bilaterally. Mandibular strength intact. Facial muscles symmetrical and strength intact. SENSATION: Sensation to touch and pinprick is normal. MOTOR: Normal tone in the upper and lower extremity. Normal muscle bulk. No fasciculations. No abnormal movements or posturing. Muscle strength of the major groups in the extremities is 5/5. REFLEXES: Deep tendon reflexes normal and symmetrical. No pathological reflexes. CEREBELLAR/COORDINATION: Finger to nose, [id number] are normal bilaterally. GAIT/STATION: deferred. laboratory and microbiology Laboratory Tests 09/03/25 06:22 Test 09/03/25 06:22 Range/Units Serum Glucose 131 H 74-106 mg/dL Problem List Confusional spells Partial complex seizure Transient global amnesia Olfactory hallucination Partial simple seizure Gustatory hallucination Partial simple seizure Family history of dementia Depression Assessment/Plan Monitoring Supportive treatments Telemetry Keppra 500 mg b.i.d. Ativan for Seizure breakthrough Service Re: Living alone, can not drive DMV report filed a last hospitalization He has been advised not drive and he is cleared Tele psych consultation Follow with me and his family doctors on discharge This medical document was created using an electronic medical record system with [employer] dictation system. Although this document has been carefully reviewed, there may still be some phonetic and typographical errors. These areas are purely typographical due to imperfections of the software programs, and do not reflect any compromise in the patient's medical care. Prognosis poor Plan discussed with: Patient, Other Total Time (mins): 35 VANDANA JOHNSON MD Sep 03, 2025 10:25
--- NOTE | 2025-09-03 12:31 | DVHPN2 ---
Subjective Patient does not have any symptoms at this time. Reviewed: Care Plan, H&P, Labs, Medications, Previous Orders Changes from previous H/P or p: No Changes General: Per HPI Respiratory: Cough Objective Vitals Vital Signs Date Time Temp Pulse Resp B/P (MAP) Pulse Ox O2 Delivery O2 Flow Rate FiO2 09/03/25 10:16 113/59 09/03/25 09:30 97.4 63 18 97 97.4 09/02/25 20:10 Room Air* 0 21 Intake/Output Intake and Output 09/03/25 07:00 Intake Total 1050 ml Output Total 3 ml Balance 1047 ml Intake Oral 950 ml IV Total 100 ml Output Urine Total 3 ml # Voids 4 General Appearance: Alert, Oriented X3, Cooperative, mild distress HEENT: Atraumatic, PERRLA Lungs: Clear to auscultation, Normal air movement Cardiovascular: Normal S1, Normal S2 Abdomen: Normal bowel sounds, Soft, No tenderness, No hepatospenomegaly, No masses Musculoskeletal: Normal sensory function, Normal motor function Neuro: Normal gait, Normal speech Psych/Mental Status: Other (Depressed) Medications Current Medications Medications Dose Ordered Sig/Justino Route Start Time Stop Time Status Last Admin Dose Admin Levetiracetam 500 mg BID PO 08/31/25 10:00 09/03/25 10:15 500 MG Hydroxychloroquine Sulfate 200 mg DAILY PO 08/31/25 10:00 09/03/25 10:16 200 MG Lisinopril 10 mg DAILY PO 08/31/25 10:00 09/03/25 10:16 10 MG Acetaminophen/ Hydrocodone Bitart 1 tab Q4HP PRN PO 08/31/25 00:15 Ondansetron HCl 4 mg Q4HP PRN IV 08/31/25 00:15 Acetaminophen 650 mg Q6HP PRN PO 08/31/25 00:15 09/03/25 01:03 650 MG Lorazepam 1 mg Q5MINP PRN IV 08/31/25 10:30 Zolpidem Tartrate 10 mg HSPRN PRN PO 08/31/25 21:30 UNV Cefepime HCl 50 ml @ 12.5 mls/hr Q12HR IV 09/01/25 22:00 09/03/25 10:14 12.5 MLS/HR Guaifenesin/ Dextromethorphan 10 ml Q4HP PRN PO 09/02/25 12:15 09/02/25 15:37 10 ML Sodium Chloride 1,000 ml @ 100 mls/hr Q10H IV 09/02/25 13:30 09/03/25 10:15 100 MLS/HR Laboratory Results Laboratory Tests 09/03/25 06:22 Chemistry Test 09/03/25 06:22 Calcium Level 9.6 mg/dL (8.7-10.4) Urinalysis Test 08/30/25 20:33 Urine Color Colorless (Yellow) Urine Clarity Clear (Clear) Urine pH 6.0 (5.0-9.0) Urine Specific [place] 1.006 (1.001-1.035) Urine Protein Negative (Negative) Urine Ketones Negative (Negative) Urine Blood Negative /uL (Negative) Urine Nitrite Negative (Negative) Urine Bilirubin Negative (Negative) Urine Urobilinogen Normal mg/dL (Negative) Urine Leukocyte Esterase Negative /uL (Negative) Urine RBC <1 /hpf (0 - 3) Urine Microscopic WBC < 1 /HPF (0-3) Urine Squamous Epithelial Cells Few /hpf (<5) Urine Bacteria None seen /hpf (None Seen) Urine Glucose Normal mg/dL (Normal) Microbiology Microbiology Date/Time Source Procedure Growth Status 08/30/25 21:05 Blood Blood Culture - Preliminary NO GROWTH AFTER 72 HOURS OF INCUBATION. Resulted Labs and/or images reviewed: Labs reviewed by me, Image(s) reviewed by me Assessment/Plan Assessment/Plan Impression: -metabolic encephalopathy -? Seizure disorder -rheumatoid arthritis -? CLL -pancytopenia -elevated LFTs -suicidal ideation, probable major depressive disorder Plan: Events: Patient stated that he is willing to participate with the psychiatry consult. -neurology consultation: Recommendations reviewed -continue cefepime 1 g -continue hydroxychloroquine -continue Keppra as ordered by Neurology -psychiatry consultation: cleared for discharge by psychiatry -monitor labs -physical therapy -bedside sitter Plan discussed with: Patient, Other (RN) Date of Service: Sep 03, 2025 Billing Provider: SHEILA NARVAEZ MAIL ROOM CLERK Common Visit Codes: [id number] INP/OBS CARE(HIGH) TERRY HENDRICKSON STUDENT MAIL ROOM CLERK Sep 03, 2025 12:30
[2025-09-03 13:00] VITALS: BP 124/66; PULSE 57; RESP 18; TEMP 97.6; O2SAT 97
--- NOTE | 2025-09-03 13:41 | DVHINCON2 ---
Date of Service if different f: Sep 03, 2025 Consultation ([facility]) Labs Laboratory Tests Test 08/30/25 20:17 08/30/25 20:33 08/30/25 21:00 08/30/25 22:20 Bedside Glucose 106 mg/dl (70-106) Urine Color Colorless (Yellow) Urine Clarity Clear (Clear) Urine pH 6.0 (5.0-9.0) Urine Specific [place] 1.006 (1.001-1.035) Urine Protein Negative (Negative) Urine Ketones Negative (Negative) Urine Blood Negative /uL (Negative) Urine Nitrite Negative (Negative) Urine Bilirubin Negative (Negative) Urine Urobilinogen Normal mg/dL (Negative) Urine Leukocyte Esterase Negative /uL (Negative) Urine RBC <1 /hpf (0 - 3) Urine Microscopic WBC < 1 /HPF (0-3) Urine Squamous Epithelial Cells Few /hpf (<5) Urine Bacteria None seen /hpf (None Seen) Urine Glucose Normal mg/dL (Normal) Urine Opiates Screen Neg (NEGATIVE) Urine Fentanyl Screen Neg (NEGATIVE) Urine Barbiturates Screen Neg (NEGATIVE) Urine Phencyclidine Screen Neg (NEGATIVE) Urine Amphetamines Screen Neg (NEGATIVE) Urine Benzodiazepines Screen Neg (NEGATIVE) Urine Cocaine Screen Neg (NEGATIVE) Urine Cannabinoids Screen Neg (NEGATIVE) Lactic Acid Level 0.9 mmol/L (0.4-2.0) Magnesium Level 2.1 mg/dL (1.6-2.6) Total Bilirubin 1.7 mg/dL (0.2-1.0) Aspartate Amino Transf (AST/SGOT) 42 U/L (13-40) Alanine Aminotransferase (ALT/SGPT) 31 U/L (7-40) Alkaline Phosphatase 102 U/L (46-116) B-Type Natriuretic Peptide 76.01 pg/mL (0-100) Total Protein 7.1 g/dL (5.7-8.2) Albumin 4.1 g/dL (3.2-4.8) Lipase 38 U/L (12-53) Plasma/Serum Blood Alcohol < 3.0 mg/dL (<10) Troponin I High Sensitivity 11 ng/L (</=54) Test 08/30/25 22:50 08/31/25 14:23 09/01/25 06:00 09/02/25 04:53 Influenza Type A Antigen Negative (Negative) Influenza Type B Antigen Negative (Negative) SARS-CoV-2 Antigen (Rapid) Negative (NEGATIVE) Ammonia < 10 umol/L (11-32) Vitamin B12 Level 288 pg/mL (211-911) Thyroid Stimulating Hormone (TSH) 0.99 uIU/mL (0.55-4.78) Erythrocyte Sedimentation Rate 14 mm/hr (0-20) C-Reactive Protein High Sensitivity 0.57 mg/dL (<1.0) Large Platelets Few Test 09/03/25 06:22 White Blood Count 1.5 10^3/uL (4.4-10.8) Red Blood Count 3.59 10^6/uL (4.5-5.90) Hemoglobin 10.8 g/dL (13.5-17.5) Hematocrit 31.5 % (41.0-53.0) Mean Corpuscular Volume 87.8 fL (80.0-100.0) Mean Corpuscular Hemoglobin 30.1 pg (28.0-32.0) Mean Corpuscular Hemoglobin Concent 34.2 g/dL (32.0-36.0) Red Cell Distribution Width 15.1 % (11.8-14.3) Platelet Count 100 10^3/uL (140-450) Mean Platelet Volume 7.2 fL (6.9-10.8) Neutrophils (%) (Auto) % (37.0-80.0) Lymphocytes (%) (Auto) % (10.0-50.0) Monocytes (%) (Auto) % (0.0-12.0) Basophils (%) (Auto) % (0.0-2.0) Neutrophils # (Auto) 10 ^3/uL (1.6-8.6) Lymphocytes # (Auto) 10 ^3/uL (0.4-5.4) Monocytes # (Auto) 10 ^3/uL (0-1.3) Differential Total Cells Counted 100.0 (100) Neutrophils % (Manual) 26 (37.0-80.0) Band Neutrophils % (Manual) 0 Lymphocytes % (Manual) 48 (10.0-50.0) Monocytes % (Manual) 24 (0-12) Eosinophils % (Manual) 1 (0-7) Basophils % (Manual) 0 (0.0-2.0) Metamyelocytes % (manual) 0 Myelocytes % (Manual) 0 Promyelocytes % (Manual) 0 Blast Cells % (Manual) 1 Nucleated Red Blood Cells 1.0 % Reactive Lymphocytes 0 Platelet Estimate Decreased Sodium Level 144 mmol/L (136-145) Potassium Level 5.0 mmol/L (3.5-5.1) Chloride Level 112 mmol/L (98-107) Carbon Dioxide Level 27 mmol/L (20-31) Anion Gap 5 (5-15) Blood Urea Nitrogen 23 mg/dL (9-23) Creatinine 1.65 mg/dL (0.700-1.30) Glomerular Filtration Rate Calc 43 mL/min (>90) BUN/Creatinine Ratio 13.9 (10.0-20.0) Serum Glucose 131 mg/dL (74-106) Calcium Level 9.6 mg/dL (8.7-10.4) Microbiology Date/Time Source Procedure Growth Status 08/30/25 21:05 Blood Blood Culture - Preliminary NO GROWTH AFTER 72 HOURS OF INCUBATION. Resulted Appetite: Good Appearance: Stated age, Groomed, Clean Psychomotor activity: WNL Behavioral: Cooperative Eye contact: Appropriate Affect: Mood Congruent Mood: Neutral Thought processes: Linear/Goal-directed Thought content: WNL Suicidal ideations: Absent Homicidal ideations: Absent Orientation: Person, Place, Time, Situation Memory intact: Recent Intellect: Average Abstractability: WNL Concentration: Adequate Attention: Adequate Judgement: WNL Insight: Fair Vitals Vital Signs Date Time Temp Pulse Resp B/P (MAP) Pulse Ox O2 Delivery O2 Flow Rate FiO2 09/03/25 10:16 113/59 09/03/25 09:30 97.4 63 18 97 97.4 09/02/25 20:10 Room Air* 0 21 Current medications Current Medications Medications Dose Ordered Sig/Justino Route Start Time Stop Time Status Last Admin Dose Admin Levetiracetam 500 mg BID PO 08/31/25 10:00 09/03/25 10:15 500 MG Hydroxychloroquine Sulfate 200 mg DAILY PO 08/31/25 10:00 09/03/25 10:16 200 MG Lisinopril 10 mg DAILY PO 08/31/25 10:00 09/03/25 10:16 10 MG Acetaminophen/ Hydrocodone Bitart 1 tab Q4HP PRN PO 08/31/25 00:15 Ondansetron HCl 4 mg Q4HP PRN IV 08/31/25 00:15 Acetaminophen 650 mg Q6HP PRN PO 08/31/25 00:15 09/03/25 01:03 650 MG Lorazepam 1 mg Q5MINP PRN IV 08/31/25 10:30 Zolpidem Tartrate 10 mg HSPRN PRN PO 08/31/25 21:30 UNV Cefepime HCl 50 ml @ 12.5 mls/hr Q12HR IV 09/01/25 22:00 09/03/25 10:14 12.5 MLS/HR Guaifenesin/ Dextromethorphan 10 ml Q4HP PRN PO 09/02/25 12:15 09/02/25 15:37 10 ML Sodium Chloride 1,000 ml @ 100 mls/hr Q10H IV 09/02/25 13:30 09/03/25 10:15 100 MLS/HR Medication adjusted: No History of Present Illness Reason for Consult : per report, patient reported suicidal ideation HPI : This is a 75-year-old male admitted here for altered mental status. patient is evaluated via telepsychiatry platform. On exam, patient is able to report reason for admission here is for confusion, memory loss but not quite sure. He does report he was out with friends, not feeling well and later woke up in the hospital. when asked if he feels depressed, replies "well, I'm not very happy." He reports I need to be really careful about how I answer theses questions. When asked if he has thoughts about not wanting to live, again, does not answer. He does deny suicidal ideation with plan or intent. He report, i dont want to harm myself but want to figure out what is going on with me. He reports taking steps to feel better, such as starting therapy sessions. he had his first phone therapy session this past Sunday while in the hospital. He is alert and oriented x4. He denies homicidal ideation. He denies auditory/visual hallucinations or p aranoid thoughts. Per chart review, possible partial complex seizures with amnesia. Past Psychiatric History : He denies past psych admissions, holds or suicide attempts. He reports he may have used antidepressant about 5-6years ago but cannot recall details. Social History : He is retired from [employer], had 6 children, one . He is from for over 6 years now. He lives on son's property. He denies any drugs or alcohol use. His UDs was negative. he denies any known family history. Diagnosis: unspecified mood disorder Plan : This is a 75-year-old male presented here for AMS, patient presently denies suicidal/homicidal ideation with plan or intent. He does not meet LPS hold criteria at this time. Patient is now connected to a therapist and outpatient services He does not wish to use an antidepressant at this time. Continue outpatient services. Patient may discharge here after medical clearance CHRISTIAN DAVENPORT DNP Sep 03, 2025 13:41
[2025-09-03] MEDS ORDERED: AUG875T PO (14:12)
[2025-09-03 15:22] VITALS: BP 113/59
--- NOTE | 2025-09-03 16:23 | DVHDS2 ---
Discharge Summary Date of Admission Aug 30, 2025 at 23:57 Date of Discharge: Sep 03, 2025 Admitting Diagnosis Acute encephalopathy Labs/Diagnostic Data: Laboratory Results Test 09/03/25 06:22 09/02/25 04:53 09/01/25 06:00 08/31/25 14:23 White Blood Count 1.5 10^3/uL (4.4-10.8) Red Blood Count 3.59 10^6/uL (4.5-5.90) Hemoglobin 10.8 g/dL (13.5-17.5) Hematocrit 31.5 % (41.0-53.0) Mean Corpuscular Volume 87.8 fL (80.0-100.0) Mean Corpuscular Hemoglobin 30.1 pg (28.0-32.0) Mean Corpuscular Hemoglobin Concent 34.2 g/dL (32.0-36.0) Red Cell Distribution Width 15.1 % (11.8-14.3) Platelet Count 100 10^3/uL (140-450) Mean Platelet Volume 7.2 fL (6.9-10.8) Neutrophils (%) (Auto) % (37.0-80.0) Lymphocytes (%) (Auto) % (10.0-50.0) Monocytes (%) (Auto) % (0.0-12.0) Basophils (%) (Auto) % (0.0-2.0) Neutrophils # (Auto) 10 ^3/uL (1.6-8.6) Lymphocytes # (Auto) 10 ^3/uL (0.4-5.4) Monocytes # (Auto) 10 ^3/uL (0-1.3) Differential Total Cells Counted 100.0 (100) Neutrophils % (Manual) 26 (37.0-80.0) Band Neutrophils % (Manual) 0 Lymphocytes % (Manual) 48 (10.0-50.0) Monocytes % (Manual) 24 (0-12) Eosinophils % (Manual) 1 (0-7) Basophils % (Manual) 0 (0.0-2.0) Metamyelocytes % (manual) 0 Myelocytes % (Manual) 0 Promyelocytes % (Manual) 0 Blast Cells % (Manual) 1 Nucleated Red Blood Cells 1.0 % Reactive Lymphocytes 0 Platelet Estimate Decreased Sodium Level 144 mmol/L (136-145) Potassium Level 5.0 mmol/L (3.5-5.1) Chloride Level 112 mmol/L (98-107) Carbon Dioxide Level 27 mmol/L (20-31) Anion Gap 5 (5-15) Blood Urea Nitrogen 23 mg/dL (9-23) Creatinine 1.65 mg/dL (0.700-1.30) Glomerular Filtration Rate Calc 43 mL/min (>90) BUN/Creatinine Ratio 13.9 (10.0-20.0) Serum Glucose 131 mg/dL (74-106) Calcium Level 9.6 mg/dL (8.7-10.4) Large Platelets Few Erythrocyte Sedimentation Rate 14 mm/hr (0-20) C-Reactive Protein High Sensitivity 0.57 mg/dL (<1.0) Ammonia < 10 umol/L (11-32) Vitamin B12 Level 288 pg/mL (211-911) Thyroid Stimulating Hormone (TSH) 0.99 uIU/mL (0.55-4.78) Test 08/30/25 22:50 08/30/25 22:20 08/30/25 21:00 08/30/25 20:33 Influenza Type A Antigen Negative (Negative) Influenza Type B Antigen Negative (Negative) SARS-CoV-2 Antigen (Rapid) Negative (NEGATIVE) Troponin I High Sensitivity 11 ng/L (</=54) Lactic Acid Level 0.9 mmol/L (0.4-2.0) Magnesium Level 2.1 mg/dL (1.6-2.6) Total Bilirubin 1.7 mg/dL (0.2-1.0) Aspartate Amino Transferase (AST) 42 U/L (13-40) Alanine Aminotransferase (ALT) 31 U/L (7-40) Alkaline Phosphatase 102 U/L (46-116) B-Type Natriuretic Peptide 76.01 pg/mL (0-100) Total Protein 7.1 g/dL (5.7-8.2) Albumin 4.1 g/dL (3.2-4.8) Lipase 38 U/L (12-53) Plasma/Serum Blood Alcohol < 3.0 mg/dL (<10) Urine Color Colorless (Yellow) Urine Clarity Clear (Clear) Urine pH 6.0 (5.0-9.0) Urine Specific [place] 1.006 (1.001-1.035) Urine Protein Negative (Negative) Urine Ketones Negative (Negative) Urine Blood Negative /uL (Negative) Urine Nitrite Negative (Negative) Urine Bilirubin Negative (Negative) Urine Urobilinogen Normal mg/dL (Negative) Urine Leukocyte Esterase Negative /uL (Negative) Urine RBC <1 /hpf (0 - 3) Urine Microscopic WBC < 1 /HPF (0-3) Urine Squamous Epithelial Cells Few /hpf (<5) Urine Bacteria None seen /hpf (None Seen) Urine Glucose Normal mg/dL (Normal) Urine Opiates Screen Neg (NEGATIVE) Urine Fentanyl Screen Neg (NEGATIVE) Urine Barbiturates Screen Neg (NEGATIVE) Urine Phencyclidine Screen Neg (NEGATIVE) Urine Amphetamines Screen Neg (NEGATIVE) Urine Benzodiazepines Screen Neg (NEGATIVE) Urine Cocaine Screen Neg (NEGATIVE) Urine Cannabinoids Screen Neg (NEGATIVE) Test 08/30/25 20:17 POC Glucose 106 mg/dl (70-106) Other Laboratory Tests 09/03/25 06:22 Brief Hx & Hospital Course: History of Present Illness 75-year-old male presents for evaluation of a headache. Patient reports waking up today with a diffuse headache. He reports feeling disoriented. He states going to sleep on night and today (Sunday) he woke up with a headache and not able to recall what happened Sunday or Sunday. Denies dizziness. He does report feeling off balance. No cardiac or respiratory complaints. Course of hospitalization: Neurology consultation was obtained. It appears, the patient has a history of seizure disorder, with probable breakthrough seizure, arriving in the hospital with postictal state. Discussion was made with the patient by myself as well as rn case mgr, with the patient reporting that he has severe depression and suicidal ideation. Patient became febrile, for which blood cultures and urine cultures ordered. Empiric antibiotic therapy was started. Patient was noted to also have pancytopenia, which seems to be chronic given the patient's report of chronic lymphocytic leukemia. Patient also reports that he recently had a bone marrow biopsy. Patient had right stain performed in this hospital which is currently pending. He has been afebrile for greater than 30 hours, in his requesting to be discharged home. Psychiatry consultation was obtained, with no reports of suicidal ideation at this time by the patient's Psychiatry, with the patient now being cleared to be discharged from their standpoint. He is instructed to follow up with the discharge Clinic in one week. He will be continued on antibiotic therapy with [id number] mg p.o. b.i.d. for an additional seven days. He is also instructed to follow up with his PCP, Dr. Pate to obtain results of his bone marrow biopsy. Patient was agreeable with discharge plan. All questions answered. Physical examination General: Alert and Oriented x3. No acute distress. Well-nourished. Eyes: EOMI. Anicteric. HENT: Moist mucous membranes. Lungs: Clear to auscultation bilaterally. No accessory muscle use. Cardiovascular: Regular rate and rhythm. No murmur. No JVD. Abdomen: Soft, non-tender and non-distended. No palpable masses. Extremities: No edema. Non-tender. Skin: No rashes or lesions. Warm. Neurologic: No focal neurological deficits. CN II-XII grossly intact, but not individually tested. Psychiatric: Cooperative. Appropriate mood and affect. Total time spent with patient discussing and formulating plan of care: 35 minutes. This medical document was created using an electronic medical record system with [employer] dictation system. Although this document has been carefully reviewed, there may still be some phonetic and typographical errors. These areas are purely typographical due to imperfections of the software programs, and do not reflect any compromise in the patient's medical care. Consults/Reason for consult Neurology:, altered mental status Condition at Discharge: Guarded Final Diagnosis/Problems List Sepsis -metabolic encephalopathy -Seizure disorder -rheumatoid arthritis -? CLL -pancytopenia -elevated LFTs -suicidal ideation, probable major depressive disorder Discharge Disposition: Home Discharge Instruct/Medications Diet: Regular Activity: No Restrictions, As Tolerated Follow Up/Referral: Follow up with Dr. Pate in 1-2 weeks DC clinic in 1 week Medications: Augmentin 875mg po bid x 7 days Continue all home medications Scheduled Amoxicillin & Pot Clavulanate (Augmentin Tablet), 875 MG PO BID Ascorbic Acid (Vitamin C Tablet), 500 MG PO BID Cholecalciferol (Vitamin D-[address]), 2,000 UNIT PO DAILY Glimepiride (Glimepiride), 2 MG PO BID, (Reported) Hydroxychloroquine Sulfate (Hydroxychloroquine Sulfat), 200 MG PO DAILY, (Reported) Levetiracetam (Keppra Tablet), 500 MG PO BID Upadacitinib (Rinvoq), 1 TAB PO DAILY, (Reported) Zinc Sulfate (Zinc), 220 MG PO DAILY 36 Discharge Statement: "Patient was advised to return to the ER or call 911 if any headaches, dizziness, shortness of breath, chest pain, abdominal pain, bleeding, fevers, or worsening of medical condition. Patient was counseled about treatment plan, medications, possible side effects, patientverbalized understanding. All questions were answered to the best of my ability. This discharge took greater then 30 minutes in planning, reviewing documentation, counseling the patient, and discussing with other team members." ASSESSMENT ASSESSMENT Assessment Sepsis Date of Service: Sep 03, 2025 Billing Provider: SHEILA NARVAEZ NP Common Visit Codes: 39394-[id number]/[id number] DISCH DAY >30min SHEILA NARVAEZ NP Sep 03, 2025 16:23
[2025-09-04 20:07] LABS: Vitamin D-2 25-Hydroxy 1.1 ng/mL (.); Vitamin D-3 25-Hydroxy 12.0 ng/mL (.)
[2025-09-05 22:06] LABS: Vitamin B1, Whole Blood 84.9 nmol/L (66.5-200.0)
== END 2025-09-03 15:49 | disposition home or self-care (01) | DRG 871 ==
LOC: ER 20:08 → OVERFLOW 23:57 → EAST 08-31 18:43
PROVIDERS: ADMIT Nurse Practitioner Acute Care; ATTEND Nurse Practitioner Acute Care
DX: A41.9 Sepsis, unspecified organism (principal); G93.41 Metabolic encephalopathy; D61.818 Other pancytopenia; C91.10 Chronic lymphocytic leukemia of B-cell type not having achieved remission; G40.209 Localization-related (focal) (partial) symptomatic epilepsy and epileptic syndromes with complex partial seizures, not intractable, without status epilepticus; N17.9 Acute kidney failure, unspecified; E11.9 Type 2 diabetes mellitus without complications; F32.9 Major depressive disorder, single episode, unspecified; G45.4 Transient global amnesia; I10 Essential (primary) hypertension; M06.9 Rheumatoid arthritis, unspecified; R45.851 Suicidal ideations; R44.2 Other hallucinations; Z83.3 Family history of diabetes mellitus; Z82.49 Family history of ischemic heart disease and other diseases of the circulatory system; Z81.8 Family history of other mental and behavioral disorders; Z79.899 Other long term (current) drug therapy
CPT/HCPCS: 36415; 70450; 71045; 71250; 76705; 80048; 80053; 80307; 80320; 81001; 82140; 82306; 82607; 82962; 83605; 83690; 83735; 83880; 84207; 84425; 84443; 84484; 85007; 85027; 85652; 86141; 87040; 87426; 87804; 93005; 95819; G0378